=== PATIENT | male | born 1985 | race Caucasian/White ===

== ENCOUNTER → 2017-07-03 | Outpatient (CLI) | payer MEDICARE, OTHER ==
[2017-07-03 15:49] LABS: Blood Urea Nitrogen 11 mg/dL (9-20); Cholesterol 180 mg/dL (<200); Glucose 93 mg/dL (74-99); HDL Cholesterol 37 mg/dL (40-60); LDL Cholesterol,Calculated 88 mg/dL (0-99); Lithium 0.3 mmol/L; Triglycerides 273 mg/dL (<150)
[2017-07-03 16:03] LABS: T4, Free (Free Thyroxine) 0.97 ng/dL (0.78-2.19)
== END | disposition home or self-care (01) ==
LOC: LABWHC1 15:05
PROVIDERS: ATTEND Psychiatry & Neurology Psychiatry
DX: Z51.81 Encounter for therapeutic drug level monitoring (principal); Z79.899 Other long term (current) drug therapy
CPT/HCPCS: 36415; 80061; 80178; 82565; 82947; 84439; 84443; 84520

== ENCOUNTER 2017-11-25 16:12 | Inpatient (IN) | payer MEDICARE, MEDICAID ==
--- NOTE | 2017-11-25 16:48 | ED ---
Psych HPI - General Chief Complaint: Psychiatric Symptoms Stated Complaint: Mental Health Time Seen by Provider: 11/25/17 16:28 Source: patient Mode of arrival: ambulatory - History of Present Illness Initial Comments: This a 32-year-old male past medical history of major depressive disorder, multiple substance abuse and borderline personality who presents today for chief complaint of suicidal thoughts. Patient states that last week he was admitted to the ICU for overdose at [facility] in [place]. He states he did not intentionally overdose he mixed Neurontin, Suboxone, Klonopin and smoked crack. Patient denies suicidal thoughts that time. He states upon discharge medications were changed. He is currently taking lithium, Cogentin and Prolixin. Patient states that he has had increased suicidal thoughts since his discharge from [facility]. He had an appointment seem [facility] this afternoon where he admitted to suicidal thoughts with the nurse and he felt he should go to the hospital. He is accompanied by his clinician at [facility]. Patient denies any homicidal ideations, suicidal plans or methods. Patient denies any drug or alcohol use prior to arrival. Review of systems positive for depression. Patient denies any recent fever, chills, shortness of breath, chest pain, back pain, abdominal pain, nausea or vomiting, numbness or tingling, dysuria or hematuria, headaches or visual changes, or any other complaints. Upon arrival vital signs within acceptable limits, BAT .000. - Related Data Home Medications Medication Instructions Recorded Confirmed [place] Carbonate 900 mg PO QAM 08/13/13 11/25/17 Levothyroxine Sodium [Synthroid] 100 mcg PO DAILY 11/25/17 11/25/17 Minocycline HCl 100 mg PO DAILY 11/25/17 11/25/17 fluPHENAZine DECANOATE [Prolixin 50 mg IM MO 11/25/17 11/25/17 Decanoate] Allergies Allergy/AdvReac Type Severity Reaction Status Date / Time bupropion HCl Allergy Rash/Hives Verified 11/25/17 16:34 [From Wellbutrin] nitrofurantoin Allergy Unknown Verified 11/25/17 16:34 [From Macrobid] Sulfa (Sulfonamide Allergy Rash/Hives Verified 11/25/17 16:34 Antibiotics) Review of Systems ROS Statement: Those systems with pertinent positive or pertinent negative responses have been documented in the HPI. ROS Other: All systems not noted in ROS Statement are negative. Constitutional: Denies: fever, chills Eyes: Denies: vision change ENT: Denies: ear pain, throat pain Respiratory: Denies: cough, dyspnea, wheezes, hemoptysis, stridor Cardiovascular: Denies: chest pain, palpitations Gastrointestinal: Reports: diarrhea (1 episode diarrhea). Denies: abdominal pain, nausea, vomiting Genitourinary: Denies: urgency, dysuria, frequency Musculoskeletal: Denies: back pain Skin: Denies: rash, lesions Neurological: Denies: headache, weakness, numbness, paresthesias, confusion, abnormal gait Psychiatric: Reports: depression, suicidal thoughts (since dicharge from [facility] last week) Past Medical History Additional Past Medical History / Comment(s): COPD, History of Any Multi-Drug Resistant Organisms: None Reported Past Surgical History: Ear Surgery Additional Past Surgical History / Comment(s): ear tubes Past Psychological History: Anxiety, Depression Smoking Status: Current every day smoker Past Alcohol Use History: None Reported Past Drug Use History: Cocaine, Marijuana General Exam - General Exam Comments Initial Comments: General: The patient is awake and alert, in no distress, and does not appear acutely ill. Eye: +4 pupils are equal, round and reactive to light, extra-ocular movements are intact. No nystagmus. There is normal conjunctiva bilaterally. No signs of icterus. Ears, nose, mouth and throat: There are moist mucous membranes and no oral lesions. Neck: The neck is supple, there is no tenderness or JVD. Cardiovascular: There is a regular rate and rhythm. No murmur, rub or gallop is appreciated. Respiratory: Lungs are clear to auscultation, respirations are non-labored, breath sounds are equal. No wheezes, stridor, rales, or rhonchi. Gastrointestinal: Soft, non-distended, non-tender abdomen without masses or organomegaly noted. There is no rebound or guarding present. Bowel sounds are unremarkable. Musculoskeletal: Normal ROM, no tenderness. Strength 5/5. Sensation intact. Radial pulses equal bilaterally 2+. Neurological: A&O x 3. CN II-XII intact, There are no obvious motor or sensory deficits. Coordination appears grossly intact. Speech is normal. Skin: Skin is warm and dry and no rashes or lesions are noted. Psychiatric: Cooperative, appropriate mood & affect, normal judgment. Limitations: no limitations Course Vital Signs 11/25/17 16:20 Temperature 98.5 F Pulse Rate 95 Respiratory 18 Rate Blood Pressure 135/91 O2 Sat by Pulse 99 Oximetry Medical Decision Making - Medical Decision Making PE unremarkable. Labs as noted above. Urine drug screen positive for marijuana. Pt medically cleared for psychiatric evaluation. EPS contacted, [facility] clinican at bedside. Pt was admitted to inpatient psych at 19:54. Case discussed with Dr. Eng throughout patient stay in the emergency department. - Lab Data Result diagrams: 11/25/17 16:56 11/25/17 16:56 Lab Results 11/25/17 11/25/17 11/25/17 Range/Units 16:56 16:56 16:56 WBC 6.8 (3.8-10.6) k/uL RBC 5.85 (4.30-5.90) m/uL Hgb 17.5 (13.0-17.5) gm/dL Hct 50.3 (39.0-53.0) % MCV 85.9 (80.0-100.0) fL MCH 30.0 (25.0-35.0) pg MCHC 34.9 (31.0-37.0) g/dL RDW 12.7 (11.5-15.5) % Plt Count 239 (150-450) k/uL Neutrophils % 69 % Lymphocytes % 21 % Monocytes % 4 % Eosinophils % 4 % Basophils % 1 % Neutrophils # 4.7 (1.3-7.7) k/uL Lymphocytes # 1.4 (1.0-4.8) k/uL Monocytes # 0.3 (0-1.0) k/uL Eosinophils # 0.3 (0-0.7) k/uL Basophils # 0.0 (0-0.2) k/uL Sodium 139 (137-145) mmol/L Potassium 4.6 (3.5-5.1) mmol/L Chloride 102 (98-107) mmol/L Carbon Dioxide 27 (22-30) mmol/L Anion Gap 10 mmol/L BUN 14 (9-20) mg/dL Creatinine 1.03 (0.66-1.25) mg/dL Est GFR (CKD-EPI)AfAm >90 (>60 ml/min/1.73 sqM) Est GFR (CKD-EPI)NonAf >90 (>60 ml/min/1.73 sqM) Glucose 90 (74-99) mg/dL Calcium 9.8 (8.4-10.2) mg/dL Total Bilirubin 0.5 (0.2-1.3) mg/dL AST 23 (17-59) U/L ALT 24 (21-72) U/L Alkaline Phosphatase 53 (38-126) U/L Total Protein 7.3 (6.3-8.2) g/dL Albumin 4.4 (3.5-5.0) g/dL Urine Color Yellow Urine Appearance Clear (Clear) Urine pH 6.0 (5.0-8.0) Ur Specific [place] 1.020 (1.001-1.035) Urine Protein Negative (Negative) Urine Glucose (UA) Negative (Negative) Urine Ketones Negative (Negative) Urine Blood Negative (Negative) Urine Nitrite Negative (Negative) Urine Bilirubin Negative (Negative) Urine Urobilinogen <2.0 (<2.0) mg/dL Ur Leukocyte Esterase Negative (Negative) Urine Opiates Screen Not Detected (NotDetected) Ur Oxycodone Screen Not Detected (NotDetected) Urine Methadone Screen Not Detected (NotDetected) Ur Propoxyphene Screen Not Detected (NotDetected) Ur Barbiturates Screen Not Detected (NotDetected) U Tricyclic Antidepress Not Detected (NotDetected) Ur Phencyclidine Scrn Not Detected (NotDetected) Ur Amphetamines Screen Not Detected (NotDetected) U Methamphetamines Scrn Not Detected (NotDetected) U Benzodiazepines Scrn Not Detected (NotDetected) Urine Cocaine Screen Not Detected (NotDetected) U Marijuana (THC) Screen Detected H (NotDetected) Disposition Clinical Impression: Suicidal thoughts Disposition: ADMITTED IP TO THIS [facility] Condition: Stable Referrals: Trent Salgado DO [Primary Care Provider] - 1-2 days Decision to Admit Reason: Admit from EC Decision Date: 11/25/17 Decision Time: 19:55
[2017-11-25 17:03] LABS: Appearance,Urine Clear (Clear); Bilirubin,Urine Negative (Negative); Blood,Urine Negative (Negative); Color,Urine Yellow; Glucose,Urine (UA) Negative (Negative); Ketones,Urine Negative (Negative); Leukocyte Esterase,Urine Negative (Negative); Nitrite,Urine Negative (Negative); Protein,Urine Negative (Negative); Urobilinogen,Urine <2.0 mg/dL (<2.0)
[2017-11-25 17:04] LABS: Basophils % (A) 1 %; Eosinophils # (A) 0.3 k/uL (0-0.7); Eosinophils % (A) 4 %; HCT 50.3 % (39.0-53.0); HGB 17.5 gm/dL (13.0-17.5); Lymphocytes # (A) 1.4 k/uL (1.0-4.8); Lymphocytes % (A) 21 %; MCHC 34.9 g/dL (31.0-37.0); MCV 85.9 fL (80.0-100.0); Mean Platelet Volume 6.9; Monocytes # (A) 0.3 k/uL (0-1.0); Monocytes % (A) 4 %; Neutrophils # (A) 4.7 k/uL (1.3-7.7); Neutrophils % (A) 69 %; Platelet Count 239 k/uL (150-450); RBC 5.85 m/uL (4.30-5.90); RDW 12.7 % (11.5-15.5); WBC 6.8 k/uL (3.8-10.6)
[2017-11-25 17:13] LABS: ALT 24 U/L (21-72); AST 23 U/L (17-59); Albumin 4.4 g/dL (3.5-5.0); Alkaline Phosphatase 53 U/L (38-126); Amphetamine Screen,Urine Not Detected (NotDetected); Anion Gap 10 mmol/L; Barbiturate Screen,Urine Not Detected (NotDetected); Benzodiazepines Screen,Urine Not Detected (NotDetected); Blood Urea Nitrogen 14 mg/dL (9-20); Calcium 9.8 mg/dL (8.4-10.2); Carbon Dioxide 27 mmol/L (22-30); Chloride 102 mmol/L (98-107); Cocaine Screen,Urine Not Detected (NotDetected); Glucose 90 mg/dL (74-99); Methadone Screen, Urine Not Detected (NotDetected); Opiate Screen,Urine Not Detected (NotDetected); Oxycodone Screen, Urine Not Detected (NotDetected); Phencyclidine Screen,Urine Not Detected (NotDetected); Potassium 4.6 mmol/L (3.5-5.1); Sodium 139 mmol/L (137-145); Total Bilirubin 0.5 mg/dL (0.2-1.3); Total Protein 7.3 g/dL (6.3-8.2); Tricyclic Antidepressant,Urine Not Detected (NotDetected); Urn Cannabinoid Scrn Detected (NotDetected)
[2017-11-25] MEDS ORDERED: ACETAMINOPHEN TAB 325 MG TAB PO PRN (22:42)
[2017-11-25] MEDS ORDERED: MAG HYDROX/AL HYDROX/SIMETH 30 ML CUP PO PRN (22:42)
[2017-11-25] MEDS ORDERED: MAGNESIUM HYDROXIDE 2,400 MG/10 ML CUP PO PRN (22:42)
[2017-11-25] MEDS ORDERED: fluPHENAZine DECANOATE 25 MG/ML 5ML MDV IM SCH (23:00)
[2017-11-25 23:09] VITALS: BMI 28.3
--- NOTE | 2017-11-26 05:53 | CONS ---
CONSULTATION DATE OF SERVICE: 11/25/2017. REASON FOR CONSULTATION: Medical management requested by Dr. Wick. CONSULTATION: This is a pleasant 32-year-old patient of Dr. Pittman, feeling rather depressed, run down a bit, suicidal, decided to come in. Chronic stable medical conditions include acne, GERD, tremors. The patient also does have trouble sleeping. Appetite has been okay, just feeling run down. REVIEW OF SYSTEMS: CONSTITUTIONAL: Tired. HEENT acne. RESPIRATORY none. CARDIOVASCULAR: None. GASTROINTESTINAL: Heartburn. GENITOURINARY none. MUSCULOSKELETAL none. DERMATOLOGICAL, HEMATOLOGIC, LYMPHATIC: None. PSYCHIATRY: Tremors. NEUROLOGICAL: Trouble sleeping. PAST MEDICAL HISTORY: Past medical history of anxiety and depression. PAST SURGICAL HISTORY: Ear surgery, ear tubes. SOCIAL HISTORY: The patient uses between 1-2 g of marijuana daily. Drinks occasionally, but yesterday drank 6 pack of beer and also did blackout. In the past has done cocaine, marijuana. Does heroin about 4 times a month. 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 FAMILY HISTORY: Reviewed and noncontributory to presentation. HOME MEDICATIONS: 1. Prolixin 50 mg IM monthly. 2. Minocycline 100 mg p.o. daily. 3. [place] 900 mg p.o. daily. 4. Synthroid 100 mcg p.o. daily. ALLERGIES: TO WELLBUTRIN, MACROBID, SULFA. PHYSICAL EXAMINATION: VITAL SIGNS: Temperature 98.5, pulse 94, respiration 16, blood pressure 144/90, pulse ox 99 percent on room air. GENERAL APPEARANCE: Average built, sitting up anxious-appearing. EYES: Pupils equal. Conjunctivae normal. HEENT: External appearance of nose and ears normal. Oral cavity normal. NECK: JVD not raised. Mass not palpable. RESPIRATORY effort normal. LUNGS are clear. CARDIOVASCULAR: 1st and 2nd sounds normal. No edema. ABDOMEN: Soft, nontender. Liver and spleen not palpable. LYMPHATICS: No lymph nodes palpable in the neck and axilla. PSYCHIATRY: Alert and oriented times three. Mood and affect depressed-appearing. NEUROLOGICAL: Pupils equal. Cranial nerves grossly intact. Power and sensation grossly intact. Tremors are present. INVESTIGATIONS: White count 6.8, hemoglobin 17.5, potassium, BUN and creatinine normal. Potassium is normal. Urine drug screen positive for marijuana. ASSESSMENT: 1. Gastroesophageal reflux disease. 2. Chronic tremors, could be side effect of medications. 3. Chronic insomnia. 4. Recreational marijuana use. 5. Occasional heroin use. PLAN: Patient advised against use of recreational drugs including smoking. Other medications as per Dr. Wick. Patient should follow up with Dr. Salgado upon discharge. We will check patient's thyroid function in the morning. MMODL / IJN: [id number] /
[2017-11-26] MEDS: LEVOTHYROXINE 100 MCG TAB PO SCH (06:33)
[2017-11-26] MEDS: NICOTINE 21MG/24HR PATCH TRANSDERM SCH (08:21)
[2017-11-26] MEDS: MINOCYCLINE 50 MG CAP PO SCH (08:21)
[2017-11-26] MEDS ORDERED: LITHIUM CARBONATE 300 MG CAP PO SCH (09:00)
[2017-11-26 10:52] LABS: Basophils % (A) 1 %; Eosinophils # (A) 0.3 k/uL (0-0.7); Eosinophils % (A) 5 %; HCT 51.5 % (39.0-53.0); HGB 17.6 gm/dL (13.0-17.5); Lymphocytes # (A) 1.6 k/uL (1.0-4.8); Lymphocytes % (A) 23 %; MCHC 34.1 g/dL (31.0-37.0); MCV 87.9 fL (80.0-100.0); Mean Platelet Volume 7.5; Monocytes # (A) 0.3 k/uL (0-1.0); Monocytes % (A) 5 %; Neutrophils # (A) 4.6 k/uL (1.3-7.7); Neutrophils % (A) 66 %; Platelet Count 259 k/uL (150-450); RBC 5.86 m/uL (4.30-5.90); RDW 12.7 % (11.5-15.5); WBC 7.1 k/uL (3.8-10.6)
[2017-11-26 10:58] LABS: ALT 23 U/L (21-72); AST 25 U/L (17-59); Albumin 4.5 g/dL (3.5-5.0); Alkaline Phosphatase 56 U/L (38-126); Anion Gap 11 mmol/L; Blood Urea Nitrogen 16 mg/dL (9-20); Calcium 9.8 mg/dL (8.4-10.2); Carbon Dioxide 28 mmol/L (22-30); Chloride 99 mmol/L (98-107); Cholesterol 172 mg/dL (<200); Glucose 88 mg/dL (74-99); HDL Cholesterol 23 mg/dL (40-60); LDL Cholesterol,Calculated 87 mg/dL (0-99); Lithium 1.5 mmol/L; Potassium 4.1 mmol/L (3.5-5.1); Sodium 138 mmol/L (137-145); Total Bilirubin 0.6 mg/dL (0.2-1.3); Total Protein 7.4 g/dL (6.3-8.2); Triglycerides 311 mg/dL (<150)
[2017-11-26] MEDS: LORazepam 1 MG TAB PO PRN ×2 (12:00→18:45)
[2017-11-26] MEDS: ZIPRASIDONE 20 MG VIAL IM PRN (12:01)
[2017-11-26 12:03] LABS: T4, Free (Free Thyroxine) 1.35 ng/dL (0.78-2.19)
--- NOTE | 2017-11-26 14:37 | P.HP ---
Psychiatric H&P - . History & Physical: Allergies Allergy/AdvReac Type Severity Reaction Status Date / Time bupropion HCl Allergy Rash/Hives Verified 11/25/17 20:37 [From Wellbutrin] nitrofurantoin Allergy Unknown Verified 11/25/17 20:37 [From Macrobid] Sulfa (Sulfonamide Allergy Rash/Hives Verified 11/25/17 20:37 Antibiotics) Vital Signs Temp 98.2 F 11/26/17 06:30 Pulse 70 11/26/17 06:30 Resp 20 11/26/17 06:30 BP 118/71 11/26/17 06:30 Pulse Ox 99 11/25/17 20:31 Intake & Output 11/25/17 11/26/17 11/26/17 18:59 06:59 18:59 Weight 95.254 kg 92.1 kg Laboratory Last Values WBC 7.1 k/uL (3.8-10.6) 11/26/17 10:19 RBC 5.86 m/uL (4.30-5.90) 11/26/17 10:19 Hgb 17.6 gm/dL (13.0-17.5) H 11/26/17 10:19 Hct 51.5 % (39.0-53.0) 11/26/17 10:19 MCV 87.9 fL (80.0-100.0) 11/26/17 10:19 MCH 30.0 pg (25.0-35.0) 11/26/17 10:19 MCHC 34.1 g/dL (31.0-37.0) 11/26/17 10:19 RDW 12.7 % (11.5-15.5) 11/26/17 10:19 Plt Count 259 k/uL (150-450) 11/26/17 10:19 Neutrophils % 66 % 11/26/17 10:19 Lymphocytes % 23 % 11/26/17 10:19 Monocytes % 5 % 11/26/17 10:19 Eosinophils % 5 % 11/26/17 10:19 Basophils % 1 % 11/26/17 10:19 Neutrophils # 4.6 k/uL (1.3-7.7) 11/26/17 10:19 Lymphocytes # 1.6 k/uL (1.0-4.8) 10/09/18 10:19 Monocytes # 0.3 k/uL (0-1.0) 11/26/17 10:19 Eosinophils # 0.3 k/uL (0-0.7) 11/26/17 10:19 Basophils # 0.0 k/uL (0-0.2) 11/26/17 10:19 Sodium 138 mmol/L (137-145) 11/26/17 10:19 Potassium 4.1 mmol/L (3.5-5.1) 11/26/17 10:19 Chloride 99 mmol/L (98-107) 11/26/17 10:19 Carbon Dioxide 28 mmol/L (22-30) 11/26/17 10:19 Anion Gap 11 mmol/L 11/26/17 10:19 BUN 16 mg/dL (9-20) 11/26/17 10:19 Creatinine 0.92 mg/dL (0.66-1.25) 11/26/17 10:19 Est GFR (CKD-EPI)AfAm >90 (>60 ml/min/1.73 sqM) 11/26/17 10:19 Est GFR (CKD-EPI)NonAf >90 (>60 ml/min/1.73 sqM) 11/26/17 10:19 Glucose 88 mg/dL (74-99) 11/26/17 10:19 Calcium 9.8 mg/dL (8.4-10.2) 11/26/17 10:19 Total Bilirubin 0.6 mg/dL (0.2-1.3) 11/26/17 10:19 AST 25 U/L (17-59) 11/26/17 10:19 ALT 23 U/L (21-72) 11/26/17 10:19 Alkaline Phosphatase 56 U/L (38-126) 11/26/17 10:19 Total Protein 7.4 g/dL (6.3-8.2) 11/26/17 10:19 Albumin 4.5 g/dL (3.5-5.0) 11/26/17 10:19 Triglycerides 311 mg/dL (<150) H 11/26/17 10:19 Cholesterol 172 mg/dL (<200) 11/26/17 10:19 LDL Cholesterol, Calc 87 mg/dL (0-99) 11/26/17 10:19 HDL Cholesterol 23 mg/dL (40-60) L 11/26/17 10: TSH 0.406 mIU/L (0.465-4.680) L 11/26/17 10: Free T4 1.35 ng/dL (0.78-2.19) 11/26/17 10:19 Urine Color Yellow 11/25/17 16:56 Urine Appearance Clear (Clear) 11/25/17 16:56 Urine pH 6.0 (5.0-8.0) 11/25/17 16:56 Ur Specific [place] 1.020 (1.001-1.035) 11/25/17 16:56 Urine Protein Negative (Negative) 11/25/17 16:56 Urine Glucose (UA) Negative (Negative) 11/25/17 16:56 Urine Ketones Negative (Negative) 11/25/17 16:56 Urine Blood Negative (Negative) 11/25/17 16:56 Urine Nitrite Negative (Negative) 11/25/17 16:56 Urine Bilirubin Negative (Negative) 11/25/17 16:56 Urine Urobilinogen <2.0 mg/dL (<2.0) 11/25/17 16:56 Ur Leukocyte Esterase Negative (Negative) 11/25/17 16:56 Urine Opiates Screen Not Detected (NotDetected) 11/25/17 16:56 Ur Oxycodone Screen Not Detected (NotDetected) 11/25/17 16:56 Urine Methadone Screen Not Detected (NotDetected) 11/25/17 16:56 Ur Propoxyphene Screen Not Detected (NotDetected) 11/25/17 16:56 Ur Barbiturates Screen Not Detected (NotDetected) 11/25/17 16:56 U Tricyclic Antidepress Not Detected (NotDetected) 11/25/17 16:56 Ur Phencyclidine Scrn Not Detected (NotDetected) 11/25/17 16:56 Ur Amphetamines Screen Not Detected (NotDetected) 11/25/17 16:56 U Methamphetamines Scrn Not Detected (NotDetected) 11/25/17 16:56 U Benzodiazepines Scrn Not Detected (NotDetected) 11/25/17 16:56 [place] 1.5 mmol/L 11/26/17 10:19 Urine Cocaine Screen Not Detected (NotDetected) 11/25/17 16:56 U Marijuana (THC) Screen Detected (NotDetected) H 11/25/17 16:56 11/26/17 14:29 IDENTIFYING DATA: This patient is a 32-year-old single male who was admitted to the mental health unit through the emergency room for acute suicidal ideation. HPI: The patient presented with [facility] health staff to the emergency room with a report the patient was suicidal. The patient was feeling hopeless and overwhelmed. He reports that he had overdosed last week on Suboxone Klonopin and Neurontin and required acute hospital care as a result. He states that he was taken off of his Cymbalta a few weeks ago and his symptoms of depression worsened. He is not able to describe why the Cymbalta was discontinued. He reports that he is been compliant with the Prolixin Decanoate lithium and Synthroid. He describes having adequate sleep or appetite with weight loss low energy no interest in activities. He is endorsing no tearfulness or crying spells. He has ongoing suicidal thoughts and describes his mood as being "down". He is endorsing no homicidal ideation intent or plan he is endorsing no hypomanic or manic symptoms. He describes no symptoms of psychosis at this time. The patient states that he has not demonstrated any violent behavior for any extended period of time. PAST PSYCHIATRIC HISTORY: He patient has had at least 12 admissions to this mental health unit over several years. He does have a history of suicide attempts. He is currently on Prolixin Decanoate 50 mg weekly lithium 900 mg in the morning Synthroid. He has been on numerous psychotropics in the past. He is followed by [facility] as an outpatient and has ACT services. 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 He has a high school education no history of service. He receives a disability income. 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 He has 1 brother 1 sister. Legal history none reported abuse history none reported. MENTAL STATUS EXAM: The patient is a male appearing his stated age. He is dressed in his own clothing which appears mildly oversized. Eye contact is staring in nature. He has no change in facial expression and affect appears flat. He reports ongoing suicidal ideation with consideration of plan. He reports no homicidal ideation. He is reporting no auditory or visual hallucinations or any specific delusions. He demonstrates no overt evidence of psychosis hypomania or andra. Insight and judgment limited. He is oriented to person place and date he is able to name the days of the week backwards. He demonstrates tremor of his upper extremities. STRENGTHS/WEAKNESSES: Strengths: Housing, income willingness to receive voluntary treatment weaknesses: Ongoing substance use INTELLECTUAL FUNCTIONING: Average IMPRESSIONS: [] 1. Major depressive disorder recurrent severe without psychosis, cannabis use disorder, opioid use disorder, alcohol use disorder, cocaine use disorder, history of inhalant use disorder 2. Borderline personality disorder traits PLAN: The patient has been admitted to the mental health unit voluntarily. We reviewed his presenting symptoms. He will be continued on the Synthroid. His lithium level was 1.5 which is higher than we would like. We will hold the lithium for now and restart at a lower dose. I have placed a call with his outpatient psychiatrist to discuss his care further. We will consider restarting the Cymbalta or another antidepressant if appropriate. He will be seen by internal medicine for routine history and physical exam. Social work will meet with the patient complete a psychosocial assessment. We will monitor him for safety and encourage appropriate participation in the milieu.
[2017-11-26 19:26] LABS: Hemoglobin A1C 4.2 % (4.0-6.0)
[2017-11-27] MEDS: LEVOTHYROXINE 100 MCG TAB PO SCH (06:42)
[2017-11-27] MEDS: NICOTINE 21MG/24HR PATCH TRANSDERM SCH (07:43)
[2017-11-27] MEDS: MINOCYCLINE 50 MG CAP PO SCH (07:44)
[2017-11-27] MEDS: LORazepam 1 MG TAB PO PRN ×2 (08:22→16:40)
--- NOTE | 2017-11-27 10:28 | P.PN ---
Progress Note - Text Interval history: The patient is found in his room. Initially he did not wish to follow me to an interview room. He indicates his mood is okay. He reports feeling anxious yesterday afternoon and requested an injection of Geodon and Ativan. He reports that he did sleep last night he is going down for meals but has not been participating in groups. We reviewed his psychotropic medications. Again he feels the Cymbalta is helpful. I will discuss this further with Dr. Suazo. We will consider restarting the Cymbalta. The patient states there is concern that he has access to his medications in terms of overdose risk. The patient reports he feels safe in the hospital today and asks when he can be discharged. Mental status exam: The patient is a male appearing his stated age he is dressed in his own attire. He has a flat affect and stares in terms of eye contact. Speech is fluent slow and limited. He provides brief answers to questions asked. He initiates conversation infrequently. He has ongoing tremor of his upper extremities. He reports no acute suicidal or homicidal ideation today. He is endorsing no auditory or visual hallucinations or any specific delusions. He demonstrates some psychomotor slowing. He is oriented to person place month and year. He demonstrates no tangential thinking loose associations or flight of ideas. He did approach my office later in the morning and asks some of the same questions he asked earlier. He states he does not recall the answers I provided earlier. Plan: The patient will continue his current psychotropic medications we will restart the lithium 3 her milligrams twice daily initially. We may consider restarting the Cymbalta. We will look for further input from [facility]. Vital signs reviewed. We will continue to monitor him for safety.
[2017-11-27] MEDS: LITHIUM CARBONATE 300 MG CAP PO SCH (21:01)
[2017-11-28] MEDS: LEVOTHYROXINE 100 MCG TAB PO SCH (06:26)
[2017-11-28] MEDS: MINOCYCLINE 50 MG CAP PO SCH (08:29)
[2017-11-28] MEDS: LORazepam 1 MG TAB PO PRN ×2 (08:29→16:04)
[2017-11-28] MEDS: NICOTINE 21MG/24HR PATCH TRANSDERM SCH (08:29)
[2017-11-28] MEDS: LITHIUM CARBONATE 300 MG CAP PO SCH ×2 (08:29→20:08)
--- NOTE | 2017-11-28 16:26 | P.PN ---
Progress Note - Text Interval history: The patient is found in his room he follows me to an interview room. He indicates his mood is okay. He continues to isolate in his room and not attending any groups. He does go down for meals. He has no questions or concerns regarding his medication. I am still making an effort to contact his outpatient psychiatrist. Mental status exam: The patient is seated at the table. He stressors unclothing hygiene is adequate grooming is fair. He initiates no conversation and has a staring eye contact. His affect is flat. He is noted to have tremor of his upper extremities. He is reporting no current suicidal ideation intent or plan however he may be underreporting symptoms. He is reporting no auditory or visual hallucinations. He demonstrates a poverty of thought and may have some difficulties retaining short-term information based on our conversations. Insight and judgment are impaired. Plan: The patient will continue his current medications I will confer with his outpatient psychiatrist to discuss the psychotropic medication management. We will continue to monitor him for safety and he is encouraged to participate in the milieu. Vital signs reviewed.
[2017-11-28] MEDS: ZIPRASIDONE 20 MG VIAL IM PRN (22:05)
[2017-11-29] MEDS: LEVOTHYROXINE 100 MCG TAB PO SCH (06:09)
[2017-11-29] MEDS: MINOCYCLINE 50 MG CAP PO SCH (08:16)
[2017-11-29] MEDS: LITHIUM CARBONATE 300 MG CAP PO SCH ×2 (08:16→20:33)
[2017-11-29] MEDS: NICOTINE 21MG/24HR PATCH TRANSDERM SCH (08:17)
--- NOTE | 2017-11-29 10:23 | P.PN ---
Progress Note - Text Interval history: The patient is found in his room he prefers not to follow me to an interview room. He states that his mood is down. I was able to communicate with his outpatient psychiatrist's and Dr. Suazo expressed a desire for the patient to be started on clozapine. This seems to be a reasonable medication change as it's likely to reduce aggressiveness possibly reduce suicidal ideation and will not worsen his extraparametal side effects. I discussed this medication option with the patient and he is agreeable. He understands there are requisite blood draws that we'll need to be done. He is asking when he can be discharged and we discussed the potential timeline. Staff report no behavioral disturbances he continues to isolate in his room. Mental status exam: The patient is an overweight male appearing his stated age. He is seated upright in bed. He has almost no spontaneous speech he provides brief responses to questions asked. He is noted to have a tremor of his upper extremities this also involves the upper musculature of his chest. He does indicate that he feels cold. He is reporting ongoing hopeless thoughts but feels safe in the hospital. He indicates he does not wish to participate in groups and be around others. He demonstrated no verbal or physical aggressiveness. His affect is flat his eye contact is staring in nature. Insight and judgment limited. He is reporting no auditory or visual hallucinations. Plan: We will initiate Clozaril 25 mg twice daily. We will titrate this as quickly as we can to a therapeutic level. Baseline CBC with differential is appropriate for initiation of Clozaril. We will continue to monitor him for safety. He is encouraged to participate in the milieu. Vital signs reviewed. He will continue on his other psychotropic medications as written.
[2017-11-29] MEDS: cloZAPine 25 MG TAB PO SCH ×2 (10:56→20:33)
[2017-11-29] MEDS: LORazepam 1 MG TAB PO PRN (19:00)
[2017-11-30] MEDS: LEVOTHYROXINE 100 MCG TAB PO SCH (05:56)
[2017-11-30] MEDS: NICOTINE 21MG/24HR PATCH TRANSDERM SCH (08:17)
[2017-11-30] MEDS: LITHIUM CARBONATE 300 MG CAP PO SCH ×2 (08:17→20:13)
[2017-11-30] MEDS: cloZAPine 25 MG TAB PO SCH ×2 (08:17→20:13)
[2017-11-30] MEDS: MINOCYCLINE 50 MG CAP PO SCH (08:28)
[2017-11-30] MEDS: LORazepam 1 MG TAB PO PRN (14:51)
--- NOTE | 2017-11-30 16:59 | P.PN ---
Progress Note - Text Progress Note Date: 11/30/17 Interval history: Patient seen in [facility] today. He does not seem to voice any adverse psychotropic medication side effects. He seems to be eating well. He reports that he is not attending groups. He is encouraged to initiate some groups. Mental status exam: He is alert and cooperative with the interview. His speech is fluent, answers are brief. He does not verbalize any thoughts of harm to self or others. He does not verbalize any hallucinations or alexandre delusions. He does not show any agitation. His affect is restricted. Plan: Patient will be maintained on current psychotropic medication regimen. Monitor for any medication side effects and monitor his ongoing response to treatment. He is encouraged to initiate some groups.
--- NOTE | 2017-11-30 17:04 | P.PN ---
Progress Note - Text Progress Note Date: 11/30/17 Addendum to progress note 11/30/2017. Patient relays that he was admitted for depression. He does relate that overall his mood is doing better. Continue to monitor his ongoing response to treatment, we'll continue to cover this patient through the weekend.
[2017-12-01] MEDS: LEVOTHYROXINE 100 MCG TAB PO SCH (06:00)
[2017-12-01] MEDS: MINOCYCLINE 50 MG CAP PO SCH (08:22)
[2017-12-01] MEDS: cloZAPine 25 MG TAB PO SCH ×2 (08:23→20:52)
[2017-12-01] MEDS: NICOTINE 21MG/24HR PATCH TRANSDERM SCH (08:23)
[2017-12-01] MEDS: LITHIUM CARBONATE 300 MG CAP PO SCH ×2 (08:23→20:52)
--- NOTE | 2017-12-01 14:28 | P.PN ---
Progress Note - Text Progress Note Date: 12/01/17 Interval history: Patient seen in [facility] today again. He reports he slept at least 6 hours last night. He seems to be eating his meals well. He does describe overall mood improvement. He does not voice any adverse psychotropic medication side effects. Mental status exam: He is alert and cooperative with the interview. His speech is fluent, not rapid or pressured. Thought processes are organized. He denies any thoughts of harm to self or others. He does not verbalize any auditory or visual hallucinations. He does not show any agitation. His affect is restricted. Plan: Patient will be maintained on current psychotropic medication regimen. We 'll continue to monitor for any medication side effects monitor his ongoing response to treatment.
[2017-12-02] MEDS: LEVOTHYROXINE 100 MCG TAB PO SCH (05:40)
[2017-12-02] MEDS: NICOTINE 21MG/24HR PATCH TRANSDERM SCH (08:02)
[2017-12-02] MEDS: cloZAPine 25 MG TAB PO SCH ×2 (08:02→20:33)
[2017-12-02] MEDS: LITHIUM CARBONATE 300 MG CAP PO SCH ×2 (08:02→20:33)
[2017-12-02] MEDS: MINOCYCLINE 50 MG CAP PO SCH (08:02)
[2017-12-02] MEDS ORDERED: fluPHENAZine DECANOATE 25 MG/ML 5ML MDV IM SCH (09:00)
--- NOTE | 2017-12-02 11:10 | P.PN ---
Progress Note - Text Interval history: The patient is found in his room. The patient states that her mood is okay. He indicates his parents visited over the weekend and that was supportive. He has compliant with the Clozaril and has no questions regarding the medication at this time. Staff report that the patient continues to isolate in his room primarily except for meals. Mental status exam: The patient is an overweight male appearing his stated age. He is seated upright in bed eye contact is appropriate speech is responsive to questions asked but not spontaneous today. He reports feeling safe in the hospital he is endorsing no acute suicidal ideation intent or plan. He is reporting no homicidal ideation intent or plan. He is reporting no auditory or visual hallucinations or any specific delusions. He has a blunted affect although during one occasion during our interaction he smiled. He demonstrates no verbal or physical aggressiveness. He continues to demonstrate ongoing tremor involving his upper extremities. Insight and judgment limited. He is demonstrating no hypomanic or manic behavior at this time. Plan: The patient will continue on his current medication I will titrate the Clozaril to 75 mg total and we will continue to titrate further. We will monitor him for safety and monitor vital signs. He is encouraged to participate in the milieu although he has been resistant. We will forego the Prolixin Decanoate injection at this time. We will continue lithium at its current dose and we'll draw a level tomorrow morning.
[2017-12-02] MEDS: LORazepam 1 MG TAB PO PRN ×2 (15:22→23:46)
[2017-12-03] MEDS: LEVOTHYROXINE 100 MCG TAB PO SCH (06:37)
[2017-12-03] MEDS: MINOCYCLINE 50 MG CAP PO SCH (08:28)
[2017-12-03] MEDS: LITHIUM CARBONATE 300 MG CAP PO SCH ×2 (08:28→20:11)
[2017-12-03] MEDS: NICOTINE 21MG/24HR PATCH TRANSDERM SCH (08:29)
[2017-12-03] MEDS ORDERED: cloZAPine 25 MG TAB PO SCH (09:00)
--- NOTE | 2017-12-03 11:24 | P.PN ---
Progress Note - Text Interval history: The patient's found in his room he reports his mood is stable. He continues to isolate in his room. Staff report that he has had more reactivity in terms of affect during brief conversations. The patient indicates he is no longer having any suicidal ideation. We discussed that we would need to titrate the claws role further and he is agreeable. He has signed a notice withdrawing his voluntary status that will towards the end of this week. Mental status exam: The patient is seated upright for our interview. He does not wish to go to an interview room to speak. Eye contact is appropriate speech is fluent nonpressured. He has no spontaneous speech but does provide brief answers to questions asked. He demonstrates brief smiling in an appropriate context. He is reporting no suicidal or homicidal ideation intent or plan. He is reporting no auditory or visual hallucinations or any specific delusions. He does not appear to be hypomanic or manic. Insight and judgment limited. He is oriented to person place day of the week. Plan: The patient will continue on the Clozaril or plan is to titrate it further during the course of this week. He will likely be appropriate for discharge towards the end of the week. Vital signs reviewed. We are awaiting the lithium level result.
[2017-12-03 11:35] LABS: Basophils # (A) 0.1 k/uL (0-0.2); Basophils % (A) 1 %; Eosinophils # (A) 0.3 k/uL (0-0.7); Eosinophils % (A) 5 %; HCT 45.8 % (39.0-53.0); HGB 15.7 gm/dL (13.0-17.5); Lymphocytes # (A) 1.6 k/uL (1.0-4.8); Lymphocytes % (A) 30 %; MCH 30.1 pg (25.0-35.0); MCHC 34.4 g/dL (31.0-37.0); MCV 87.7 fL (80.0-100.0); Mean Platelet Volume 7.7; Monocytes # (A) 0.3 k/uL (0-1.0); Monocytes % (A) 5 %; Neutrophils # (A) 2.9 k/uL (1.3-7.7); Neutrophils % (A) 57 %; Platelet Count 204 k/uL (150-450); RBC 5.22 m/uL (4.30-5.90); RDW 12.7 % (11.5-15.5); WBC 5.2 k/uL (3.8-10.6)
[2017-12-03] MEDS: LORazepam 1 MG TAB PO PRN ×2 (14:26→22:10)
[2017-12-03] MEDS: cloZAPine 25 MG TAB PO SCH (20:11)
[2017-12-04] MEDS: LEVOTHYROXINE 100 MCG TAB PO SCH (07:14)
[2017-12-04 07:25] VITALS: BP 121/83; PULSE 81; RESP 16; TEMP 97.6
[2017-12-04] MEDS: LITHIUM CARBONATE 300 MG CAP PO SCH (08:32)
[2017-12-04] MEDS: MINOCYCLINE 50 MG CAP PO SCH (08:32)
[2017-12-04] MEDS ORDERED: cloZAPine 25 MG TAB PO SCH ×3 (09:00→21:00)
[2017-12-04] MEDS: LORazepam 1 MG TAB PO PRN (10:46)
--- NOTE | 2017-12-04 10:58 | P.DS ---
Providers Date of admission: 11/25/17 20:22 Expected date of discharge: 12/04/17 Attending physician: Vinny Wick Consults: 11/25/17 21:52 Consult Physician Routine Consulting Provider: Jeremiah Martinez Consult Reason/Comments: h&p Do you want consulting provider notified?: Already Contacted Primary care physician: Trent Salgado - Discharge Diagnosis(es) (1) Major depressive disorder, recurrent severe without psychotic features Current Visit: Yes Status: Acute Priority: High (2) Cannabis use disorder, mild, abuse Current Visit: Yes Status: Acute Priority: Medium (3) Opioid use disorder Current Visit: Yes Status: Acute Priority: High (4) Cocaine use disorder Current Visit: Yes Status: Acute Priority: Medium (5) Alcohol use disorder Current Visit: Yes Status: Acute Priority: High Hospital Course: Brief summary of admission note: This patient is a 32-year-old single male who was admitted to the mental health unit through the emergency room for acute suicidal ideation. The patient's presented with community mental health staff to the emergency room with a report that the patient was suicidal. He reported feeling hopeless and overwhelmed. He described overdosing the week prior on Suboxone Klonopin and Neurontin and required acute hospital care as a result. He had been taken off his Cymbalta a few weeks prior. He stated he was compliant with Prolixin decanoate injections lithium and Synthroid. For full details please refer to my psychiatric evaluation dated 11/26/2017. Summary of hospital course: The patient was admitted to the mental health unit he signed in voluntarily. We reviewed his presenting symptoms and treatment options. I did call his outpatient psychiatrist to collaborate in terms of medication management. It was communicated that the patient's outpatient psychiatrist Dr. Suazo was hoping to initiate Clozaril for the patient's suicidal ideation mood instability and history of aggressive behavior. The patient was agreeable to initiating Clozaril. We have been able to titrate the dose to 25 mg in the morning and 75 mg in the evening. Upon presentation the patient's lithium level was 1.5. We reduced the lithium to 300 mg twice daily. The Prolixin decanoate was not continued on the mental health unit. The patient demonstrated significant tremor of his upper extremities and lower extremities which also involved his upper chest musculature. The tremor could be due to use of the Prolixin or due to the lithium. During the course of this admission the amplitude of the tremor has reduced. The patient has been speaking with his parents via phone they are going to participate in a support meeting this afternoon. The patient rarely isolated in his room other than meals and very brief interaction with group. He states that his suicidal thoughts have resolved. He does not wish to participate in inpatient chemical dependency treatment but states he is open to residing at [facility] upon discharge. The patient has had 3 CBC with differentials all within appropriate limits for continued use of Clozaril. Last white blood count on 12/03/2017 was 5.2 and absolute neutrophil count was 2.9. Mental status exam: The patient is an overweight male appearing his stated age. He is dressed in his own clothing. Hygiene is adequate. Eye contact is appropriate speech is fluent spontaneous nonpressured. The patient' s affect has brightened and is more interactive. He demonstrates appropriate smiling and laughter. He is reporting no suicidal or homicidal ideation intent or plan. He is endorsing no auditory or visual hallucinations or any specific delusions. There is no observed evidence of psychosis. He demonstrates no tangential thinking loose associations or flight of ideas. He does not appear hypomanic or manic. Insight and judgment have improved. He is oriented to person place and date. He demonstrates a significantly decreased tremor of his upper extremities. None observed in his lower extremity at this time. He demonstrates future oriented thinking. Impressions 1. Major depressive disorder recurrent severe without psychosis, cannabis use disorder, opioid use disorder, alcohol use disorder, cocaine use disorder, history of inhalant use disorder 2. Borderline personality disorder traits Plan: The patient will be discharged mental health unit today following a successful family meeting with his mother. He will return residing with his parents. He states he has a short-term goal of obtaining housing with [facility]. He will continue on Clozaril 25 mg in the morning and 75 mg in the evening lithium carbonate 300 mg twice daily. His tremors are significantly decreased. These may have been due to the lithium and/or the Prolixin and need to be followed further. He has had a recent CBC with differential yesterday with the values noted above. He is instructed to abstain from any use of alcohol marijuana or any other illicit drug as these will interfere with the efficacy of his medication and will elevate his safety risk. He does not wish to participate in inpatient chemical dependency treatment. He is agreeable to continued care as an outpatient with [facility]. He is instructed to return to the hospital with any acute safety concerns. Patient Condition at Discharge: Stable Plan - Discharge Summary Discharge Rx Participant: Yes New Discharge Prescriptions: New cloZAPine [Clozaril] 75 mg PO HS #21 tab cloZAPine [Clozaril] 25 mg PO DAILY #7 tab [place] Carbonate 300 mg PO BID #60 cap Continue Levothyroxine Sodium [Synthroid] 100 mcg PO DAILY Minocycline HCl 100 mg PO DAILY Discontinued [place] Carbonate 900 mg PO QAM fluPHENAZine DECANOATE [Prolixin Decanoate] 50 mg IM MO Discharge Medication List Levothyroxine Sodium [Synthroid] 100 mcg PO DAILY 11/25/17 [History] Minocycline HCl 100 mg PO DAILY 11/25/17 [History] [place] Carbonate 300 mg PO BID #60 cap 12/04/17 [Rx] cloZAPine [Clozaril] 25 mg PO DAILY #7 tab 12/04/17 [Rx] cloZAPine [Clozaril] 75 mg PO HS #21 tab 12/04/17 [Rx] Follow up Appointment(s)/Referral(s): Trent Salgado DO [Primary Care Provider] - 1-2 days
== END 2017-12-04 12:23 | disposition home or self-care (01) | DRG 885 ==
LOC: EC 16:12 → 3MHU 20:22
PROVIDERS: ADMIT Psychiatry & Neurology Psychiatry; ATTEND Psychiatry & Neurology Psychiatry
DX: F33.2 Major depressive disorder, recurrent severe without psychotic features (principal); F11.10 Opioid abuse, uncomplicated; F10.10 Alcohol abuse, uncomplicated; F14.10 Cocaine abuse, uncomplicated; Z79.890 Hormone replacement therapy; Z79.899 Other long term (current) drug therapy; G25.2 Other specified forms of tremor; T43.3X5A Adverse effect of phenothiazine antipsychotics and neuroleptics, initial encounter; T43.595A Adverse effect of other antipsychotics and neuroleptics, initial encounter; K21.9 Gastro-esophageal reflux disease without esophagitis; E03.2 Hypothyroidism due to medicaments and other exogenous substances; Z88.1 Allergy status to other antibiotic agents; Z88.2 Allergy status to sulfonamides; Z88.8 Allergy status to other drugs, medicaments and biological substances; Z91.5 Personal history of self-harm; G47.00 Insomnia, unspecified; Z81.1 Family history of alcohol abuse and dependence; Z81.3 Family history of other psychoactive substance abuse and dependence
CPT/HCPCS: 36415; 80053; 80061; 80178; 80306; 81003; 82075; 83036; 84439; 84443; 85025; 99285

== ENCOUNTER 2017-12-13 19:34 | Emergency (ER) | payer MEDICARE, OTHER ==
--- NOTE | 2017-12-13 23:26 | ED ---
General Adult HPI - General Chief complaint: ENT Stated complaint: High BP, Blurred Vision Time Seen by Provider: 12/13/17 21:23 Source: patient Mode of arrival: ambulatory Limitations: no limitations - History of Present Illness Initial comments: 32-year-old male patient presents to the emergency department today with complaints of blurred vision and elevated blood pressure. Patient states that he started feeling unwell around 5:00 this afternoon while at work. Patient states he was feeling slightly lightheaded. States that he did come home from work early and continue to have symptoms. States that he checked his blood pressure was in the 150s systolic over 90s diastolic. States that he became concerned today presented here for further evaluation. Patient states that this time he is feeling improved. States he does still have blurred vision at this time. He denies any double vision. Denies any headache, weakness, numbness, or tingling to the extremities. Patient did start a new medication clozapine, 2 weeks ago, states that he has been having increased blurred vision since starting this medication. Patient states that he also is supposed to wear glasses, but he does not. His last optometry evaluation was two years ago. Patient denies any recent rash, fever, chills, shortness breath, chest pain, abdominal pain, nausea, vomiting, diarrhea, constipation, back pain, hematuria, dysuria, urinary urgency, urinary frequency, or any other complaints. - Related Data Home Medications Medication Instructions Recorded Confirmed Levothyroxine Sodium [Synthroid] 100 mcg PO DAILY 11/25/17 12/13/17 DULoxetine HCL [Cymbalta] 60 mg PO DAILY 12/13/17 12/13/17 [place] Carbonate 600 mg PO HS 12/13/17 12/13/17 cloZAPine [Clozaril] 50 mg PO HS 12/13/17 12/13/17 lamoTRIgine [LaMICtal] See Taper PO DAILY 12/13/17 12/13/17 Allergies Allergy/AdvReac Type Severity Reaction Status Date / Time bupropion HCl Allergy Rash/Hives Verified 12/13/17 21:19 [From Wellbutrin] nitrofurantoin Allergy Unknown Verified 12/13/17 21:19 [From Macrobid] Sulfa (Sulfonamide Allergy Rash/Hives Verified 12/13/17 21:19 Antibiotics) Review of Systems ROS Statement: Those systems with pertinent positive or pertinent negative responses have been documented in the HPI. ROS Other: All systems not noted in ROS Statement are negative. Past Medical History Additional Past Medical History / Comment(s): COPD, History of Any Multi-Drug Resistant Organisms: None Reported Past Surgical History: Ear Surgery Additional Past Surgical History / Comment(s): ear tubes Past Psychological History: Anxiety, Bipolar, Depression Smoking Status: Current every day smoker Past Alcohol Use History: Occasional Past Drug Use History: Marijuana General Exam Limitations: no limitations General appearance: alert, in no apparent distress, other (This is a well- developed, well-nourished adult male patient in no acute distress. Vital signs upon presentation are temperature 98.0F, pulse 117, respirations 18, blood pressure 138/86, pulse ox 98% on room air.) Eye exam: Present: normal appearance, PERRL, EOMI. Absent: scleral icterus, conjunctival injection, nystagmus, periorbital swelling ENT exam: Present: normal exam, normal oropharynx, mucous membranes moist, TM's normal bilaterally Neck exam: Present: normal inspection. Absent: tenderness, meningismus, lymphadenopathy Respiratory exam: Present: normal lung sounds bilaterally. Absent: respiratory distress, wheezes, rales, rhonchi, stridor Cardiovascular Exam: Present: regular rate, normal rhythm, normal heart sounds. Absent: systolic murmur, diastolic murmur, rubs, gallop, clicks GI/Abdominal exam: Present: soft, normal bowel sounds. Absent: distended, tenderness, guarding, rebound, rigid Neurological exam: Present: alert, oriented X3, CN II-XII intact, other ( Strength in all 4 extremities is 5/5.) Psychiatric exam: Present: normal affect Skin exam: Present: warm, dry, intact, normal color. Absent: rash Course Vital Signs 12/13/17 12/13/17 12/13/17 19:52 21:30 22:00 Temperature 98 F Pulse Rate 117 H Respiratory 18 18 Rate Blood Pressure 138/86 127/89 119/81 O2 Sat by Pulse 98 97 97 Oximetry 12/13/17 23:28 Temperature 98.3 F Pulse Rate 94 Respiratory 19 Rate Blood Pressure 122/79 O2 Sat by Pulse 98 Oximetry EKG Findings - EKG Comments: EKG Findings:: EKG obtained at 2308 shows normal sinus rhythm with an incomplete right bundle branch block. Ventricular rate is 98, AK interval 166, QRS duration 94, QT 368, QTC 469. No evidence of ST elevation or depression. Medical Decision Making - Medical Decision Making 32-year-old male patient presented to the emergency department today for complaints of blurred vision and high blood pressure. Physical examination is unremarkable. Patient was neurologically intact with no focal deficits. Visual acuity did reveal 20/100 bilaterally. Patient is supposed to wear glasses but has not wearing them. Patient also started a new medication clozapine 2 weeks ago, and a common side effect is blurred vision. EKG showed normal sinus rhythm there was evidence of incomplete right bundle bundle branch block however patient is not having any chest pain or shortness of breath at this time. I did discuss findings and results with patient and his mother. Did discuss that his blurred vision is most likely related to the medication however he is instructed to follow up with coremaker apprentice for eye exam. Blood pressures in the department were within normal limits. He is instructed to keep a log of his blood pressures and follow up with his primary care physician for further evaluation. Return parameters discussed in detail. He verbalizes understanding and agrees with this plan. Disposition Clinical Impression: Blurred vision, Medication side effect Disposition: HOME SELF-CARE Condition: Good Instructions: Blurred Vision (ED) Additional Instructions: Monitor blood pressure readings several times daily. Keep a log for your primary care physician. Have eye exam performed by optometry. Follow-up with psychiatrist to discuss side effects from medication. Return immediately for any new, worsening, or concerning symptoms. Is patient prescribed a controlled substance at d/c from ED?: No Referrals: Trent Salgado DO [Primary Care Provider] - 1-2 days Time of Disposition: 23:25
[2017-12-13 23:43] VITALS: BP 122/79; PULSE 94; RESP 19; TEMP 98.3
--- NOTE | 2017-12-14 03:12 | CDI ---
Documentation Clarification OP Dear Trixie ROMERO, [facility] Please do addendum to ED report for HPI , Physical exam and MDM. Thank you, Kimi Lyn Fur Trimming Machine Operator If you have any question, Please contact manager beauty at [phone] [facility]
== END 2017-12-13 23:28 | disposition home or self-care (01) ==
LOC: EC 19:34
DX: H53.8 Other visual disturbances (principal); T42.4X5A Adverse effect of benzodiazepines, initial encounter; R42 Dizziness and giddiness; R03.0 Elevated blood-pressure reading, without diagnosis of hypertension; I45.10 Unspecified right bundle-branch block; F31.9 Bipolar disorder, unspecified; F41.9 Anxiety disorder, unspecified; F17.200 Nicotine dependence, unspecified, uncomplicated; Z79.899 Other long term (current) drug therapy; Z88.1 Allergy status to other antibiotic agents; Z88.2 Allergy status to sulfonamides; Z88.8 Allergy status to other drugs, medicaments and biological substances
CPT/HCPCS: 93005; 99284

== ENCOUNTER 2017-12-23 21:45 | Emergency (ER) | payer MEDICARE, OTHER ==
--- NOTE | 2017-12-23 22:34 | ED ---
General Adult HPI - General Chief complaint: Recheck/Abnormal Lab/Rx Stated complaint: tremors Time Seen by Provider: 12/23/17 21:57 Source: family Mode of arrival: ambulatory Limitations: no limitations - History of Present Illness Initial comments: This patient is a 32-year-old man who presents today to be evaluated for tremor. The nurse's note state that the symptoms started when he stopped taking the clozapine that he had started on recently however he only stopped that because the tremor was coming on. He states his symptoms have been going on for 5-6 days. They seem to be getting worse. Onset/Timin -: days(s) Location: upper extremity, lower extremity Consistency: constant Improves with: none Worsens with: movement Associated Symptoms: denies other symptoms - Related Data Home Medications Medication Instructions Recorded Confirmed Levothyroxine Sodium [Synthroid] 100 mcg PO DAILY 11/25/17 12/23/17 DULoxetine HCL [Cymbalta] 60 mg PO DAILY 12/13/17 12/23/17 [place] Carbonate 600 mg PO HS 12/13/17 12/23/17 cloZAPine [Clozaril] 50 mg PO HS 12/13/17 12/23/17 lamoTRIgine [LaMICtal] See Taper PO DAILY 12/13/17 12/23/17 fluPHENAZine DECANOATE [Prolixin 50 mg IM Q7D 12/23/17 12/23/17 Decanoate] Previous Rx's Medication Instructions Recorded Diazepam [Valium] 5 mg PO TID 3 Days #6 tab 12/24/17 Allergies Allergy/AdvReac Type Severity Reaction Status Date / Time bupropion HCl Allergy Rash/Hives Verified 12/23/17 22:09 [From Wellbutrin] nitrofurantoin Allergy Unknown Verified 12/23/17 22:09 [From Macrobid] Sulfa (Sulfonamide Allergy Rash/Hives Verified 12/23/17 22:09 Antibiotics) Review of Systems ROS Statement: Those systems with pertinent positive or pertinent negative responses have been documented in the HPI. ROS Other: All systems not noted in ROS Statement are negative. Constitutional: Denies: fever, chills Respiratory: Denies: cough, dyspnea Cardiovascular: Denies: chest pain, palpitations, syncope Gastrointestinal: Denies: abdominal pain, nausea, vomiting Musculoskeletal: Denies: back pain Skin: Denies: rash Neurological: Reports: other (Tremors). Denies: headache, weakness, numbness, paresthesias Psychiatric: Denies: depression, homicidal thoughts, suicidal thoughts Past Medical History Additional Past Medical History / Comment(s): COPD, History of Any Multi-Drug Resistant Organisms: None Reported Past Surgical History: Ear Surgery Additional Past Surgical History / Comment(s): ear tubes Past Psychological History: Anxiety, Bipolar, Depression Smoking Status: Current every day smoker Past Alcohol Use History: Occasional Past Drug Use History: Marijuana General Exam Limitations: no limitations General appearance: alert, in no apparent distress Head exam: Present: atraumatic, normocephalic Eye exam: Present: normal appearance. Absent: scleral icterus, conjunctival injection Neck exam: Present: normal inspection Respiratory exam: Present: normal lung sounds bilaterally. Absent: respiratory distress, wheezes, rales, rhonchi, stridor Cardiovascular Exam: Present: regular rate, normal rhythm, normal heart sounds. Absent: systolic murmur, diastolic murmur, rubs, gallop GI/Abdominal exam: Present: soft. Absent: distended, tenderness, guarding, rebound, rigid, mass Extremities exam: Present: normal inspection, normal capillary refill. Absent: pedal edema, calf tenderness Back exam: Present: normal inspection. Absent: CVA tenderness (R), CVA tenderness (L) Neurological exam: Present: alert, oriented X3, CN II-XII intact, other (The patient does have moderate tremor throughout 4 extremities) Skin exam: Present: warm, dry, intact, normal color. Absent: rash Course Vital Signs 12/23/17 12/23/17 21:47 23:52 Temperature 97.8 F 97.9 F Pulse Rate 87 78 Respiratory 18 16 Rate Blood Pressure 153/108 136/98 O2 Sat by Pulse 97 97 Oximetry Medical Decision Making - Lab Data Result diagrams: 12/23/17 22:25 12/23/17 22:25 Lab Results 12/23/17 12/23/17 Range/Units 22:25 22:25 WBC 6.4 (3.8-10.6) k/uL RBC 5.21 (4.30-5.90) m/uL Hgb 16.0 (13.0-17.5) gm/dL Hct 45.2 (39.0-53.0) % MCV 86.7 (80.0-100.0) fL MCH 30.7 (25.0-35.0) pg MCHC 35.4 (31.0-37.0) g/dL RDW 13.4 (11.5-15.5) % Plt Count 198 (150-450) k/uL Neutrophils % 58 % Lymphocytes % 29 % Monocytes % 6 % Eosinophils % 5 % Basophils % 1 % Neutrophils # 3.7 (1.3-7.7) k/uL Lymphocytes # 1.8 (1.0-4.8) k/uL Monocytes # 0.4 (0-1.0) k/uL Eosinophils # 0.3 (0-0.7) k/uL Basophils # 0.0 (0-0.2) k/uL Sodium 138 (137-145) mmol/L Potassium 3.8 (3.5-5.1) mmol/L Chloride 103 (98-107) mmol/L Carbon Dioxide 25 (22-30) mmol/L Anion Gap 10 mmol/L BUN 16 (9-20) mg/dL Creatinine 0.83 (0.66-1.25) mg/dL Est GFR (CKD-EPI)AfAm >90 (>60 ml/min/1.73 sqM) Est GFR (CKD-EPI)NonAf >90 (>60 ml/min/1.73 sqM) Glucose 95 (74-99) mg/dL Calcium 9.7 (8.4-10.2) mg/dL Total Bilirubin 1.0 (0.2-1.3) mg/dL AST 20 (17-59) U/L ALT 30 (21-72) U/L Alkaline Phosphatase 61 (38-126) U/L Total Protein 7.1 (6.3-8.2) g/dL Albumin 4.5 (3.5-5.0) g/dL [place] 0.7 mmol/L Disposition Clinical Impression: Tremor Disposition: HOME SELF-CARE Condition: Fair Instructions: Tremors (ED) Prescriptions: Diazepam [Valium] 5 mg PO TID 3 Days #6 tab Is patient prescribed a controlled substance at d/c from ED?: Yes When asked, does pt state using other controlled substances?: No If prescribed controlled substance>3 days was MAPS reviewed?: Prescribed <3 Days Referrals: Damian,Trent, DO [Primary Care Provider] - 1-2 days Sunny Suazo MD [REFERRING] - 1-2 days
[2017-12-23 22:37] LABS: Basophils % (A) 1 %; Eosinophils # (A) 0.3 k/uL (0-0.7); Eosinophils % (A) 5 %; HCT 45.2 % (39.0-53.0); Lymphocytes # (A) 1.8 k/uL (1.0-4.8); Lymphocytes % (A) 29 %; MCH 30.7 pg (25.0-35.0); MCHC 35.4 g/dL (31.0-37.0); MCV 86.7 fL (80.0-100.0); Mean Platelet Volume 7.7; Monocytes # (A) 0.4 k/uL (0-1.0); Monocytes % (A) 6 %; Neutrophils # (A) 3.7 k/uL (1.3-7.7); Neutrophils % (A) 58 %; Platelet Count 198 k/uL (150-450); RBC 5.21 m/uL (4.30-5.90); RDW 13.4 % (11.5-15.5); WBC 6.4 k/uL (3.8-10.6)
[2017-12-23 22:47] LABS: ALT 30 U/L (21-72); AST 20 U/L (17-59); Albumin 4.5 g/dL (3.5-5.0); Alkaline Phosphatase 61 U/L (38-126); Anion Gap 10 mmol/L; Blood Urea Nitrogen 16 mg/dL (9-20); Calcium 9.7 mg/dL (8.4-10.2); Carbon Dioxide 25 mmol/L (22-30); Chloride 103 mmol/L (98-107); Glucose 95 mg/dL (74-99); Lithium 0.7 mmol/L; Potassium 3.8 mmol/L (3.5-5.1); Sodium 138 mmol/L (137-145); Total Protein 7.1 g/dL (6.3-8.2)
[2017-12-23] MEDS ORDERED: DIAZEPAM 5 MG TAB PO STA (23:46)
[2017-12-23 23:53] VITALS: BP 136/98; PULSE 78; RESP 16; TEMP 97.9
== END 2017-12-24 00:18 | disposition home or self-care (01) ==
LOC: EC 21:45
DX: R25.1 Tremor, unspecified (principal); F31.9 Bipolar disorder, unspecified; F41.9 Anxiety disorder, unspecified; F17.200 Nicotine dependence, unspecified, uncomplicated; Z88.1 Allergy status to other antibiotic agents; Z88.2 Allergy status to sulfonamides; Z88.8 Allergy status to other drugs, medicaments and biological substances; Z79.899 Other long term (current) drug therapy
CPT/HCPCS: 36415; 80053; 80178; 85025; 99284

== ENCOUNTER 2018-10-13 17:08 | Emergency (ER) | payer MEDICARE, OTHER ==
[2018-10-13 20:10] LABS: Appearance,Urine Clear (Clear); Bilirubin,Urine Negative (Negative); Blood,Urine Negative (Negative); Color,Urine Yellow; Glucose,Urine (UA) Negative (Negative); Ketones,Urine Negative (Negative); Leukocyte Esterase,Urine Negative (Negative); Nitrite,Urine Negative (Negative); PH, Urine 5.5 (5.0-8.0); Protein,Urine Negative (Negative); Specific Gravity,Urine 1.017 (1.001-1.035); Urobilinogen,Urine <2.0 mg/dL (<2.0)
[2018-10-13] MEDS ORDERED: SODIUM CHLORIDE 0.9% 1,000 ML IV STA (20:43)
[2018-10-13] MEDS ORDERED: KETOROLAC 30 MG/ML 1 ML VIAL IVP STA (20:43)
--- NOTE | 2018-10-13 21:14 | ED ---
Abdominal Pain HPI - General Chief Complaint: Abdominal Pain Stated Complaint: Back pain; abdominal pain, nauseous Time Seen by Provider: 10/13/18 20:33 Source: patient Mode of arrival: ambulatory Limitations: no limitations - History of Present Illness Initial Comments: 32-year-old male patient presents to the emergency department today for evaluation of low back pain, and midepigastric abdominal pain. Patient states these symptoms started today. Patient states that he does have a history of degenerative disc disease however this pain is different for him. Patient states the pain has backed is worsened with movement. Patient states that the pain has been epigastric region has subsided however he still feels tender over the area. States he did have some nausea but no vomiting. Denies fever or chills. Denies any history of IV drug use. Patient states he was having some left testicular pain a week ago, was evaluated at his doctor's office was negative for STDs. Patient states that these symptoms have improved. Patient denies any recent rash, shortness breath, chest pain, numbness, tingling, saddle anesthesia, loss of bowel or bladder control, dizziness, weakness, hematuria, dysuria, urinary urgency, urinary frequency, headache, visual changes, or any other complaints. - Related Data Home Medications Medication Instructions Recorded Confirmed Benztropine Mesylate [Cogentin] 1 mg PO BID 10/13/18 10/13/18 Propranolol [Inderal] 10 mg PO BID 10/13/18 10/13/18 chlorproMAZINE [Thorazine] 200 mg PO HS 10/13/18 10/13/18 Previous Rx's Medication Instructions Recorded Cyclobenzaprine [Flexeril] 10 mg PO TID #15 tab 10/13/18 Ibuprofen [Motrin] 600 mg PO Q8HR PRN #30 tab 10/13/18 Allergies Allergy/AdvReac Type Severity Reaction Status Date / Time bupropion HCl Allergy Rash/Hives Verified 10/13/18 20:37 [From Wellbutrin] nitrofurantoin Allergy Unknown Verified 10/13/18 20:37 [From Macrobid] Sulfa (Sulfonamide Allergy Rash/Hives Verified 10/13/18 20:37 Antibiotics) Review of Systems ROS Statement: Those systems with pertinent positive or pertinent negative responses have been documented in the HPI. ROS Other: All systems not noted in ROS Statement are negative. Past Medical History Past Medical History: COPD, Seizure Disorder Additional Past Medical History / Comment(s): COPD, History of Any Multi-Drug Resistant Organisms: None Reported Past Surgical History: Ear Surgery Additional Past Surgical History / Comment(s): ear tubes Past Anesthesia/Blood Transfusion Reactions: No Reported Reaction Past Psychological History: Anxiety, Bipolar, Depression Smoking Status: Current every day smoker Past Alcohol Use History: Occasional Past Drug Use History: Marijuana - Past Family History Mother Family Medical History: Hypertension, Thyroid Disorder Father Family Medical History: COPD, Diabetes Mellitus, Hypertension Brother(s) Family Medical History: No Reported History Sister(s) Family Medical History: No Reported History General Exam Limitations: no limitations General appearance: alert, in no apparent distress, other (This is a well- developed, well-nourished adult male patient in no acute distress. Vital signs upon presentation are temperature 99.4F, pulse 104, respirations 18 , blood pressure 136/95, pulse ox 98% on room air.) Eye exam: Present: normal appearance, PERRL, EOMI. Absent: scleral icterus, conjunctival injection, periorbital swelling ENT exam: Present: normal exam, normal oropharynx, mucous membranes moist Respiratory exam: Present: normal lung sounds bilaterally. Absent: respiratory distress, wheezes, rales, rhonchi, stridor Cardiovascular Exam: Present: regular rate, normal rhythm, normal heart sounds. Absent: systolic murmur, diastolic murmur, rubs, gallop, clicks GI/Abdominal exam: Present: soft, tenderness (Midepigastric tenderness), normal bowel sounds. Absent: distended, guarding, rebound, rigid Back exam: Present: normal inspection, paraspinal tenderness (Lower back). Absent: vertebral tenderness Neurological exam: Present: alert, oriented X3, CN II-XII intact Psychiatric exam: Present: normal affect, normal mood Skin exam: Present: warm, dry, intact, normal color. Absent: rash Course Vital Signs 10/13/18 10/13/18 17:22 20:01 Temperature 99.4 F 98.6 F Pulse Rate 104 H 98 Respiratory 18 18 Rate Blood Pressure 136/95 137/97 O2 Sat by Pulse 98 100 Oximetry Medical Decision Making - Medical Decision Making 32-year-old male patient presents to the emergency department today for evaluation of midepigastric and low back pain. Physical examination did reveal midepigastric tenderness. There is some muscular tenderness over the low back. He is neurologically and neurovascularly intact. Labs reviewed and were unremarkable. Urinalysis was unremarkable. I did discuss findings and results with the patient. We discussed low back strain as a cause for his symptoms. He'll be discharged with anti-inflammatory and muscle relaxer. He is instructed to follow-up with his primary care physician for further evaluation of his abdom inal pain. Return parameters were discussed in detail. He verbalizes understanding and agrees with this plan. - Lab Data Result diagrams: 10/13/18 21:00 10/13/18 21:00 Lab Results 10/13/18 10/13/18 10/13/18 Range/Units 20:00 21:00 21:00 WBC 6.8 (3.8-10.6) k/uL RBC 5.78 (4.30-5.90) m/uL Hgb 17.8 H (13.0-17.5) gm/dL Hct 50.9 (39.0-53.0) % MCV 88.1 (80.0-100.0) fL MCH 30.8 (25.0-35.0) pg MCHC 35.0 (31.0-37.0) g/dL RDW 13.2 (11.5-15.5) % Plt Count 199 (150-450) k/uL Neutrophils % 59 % Lymphocytes % 29 % Monocytes % 6 % Eosinophils % 4 % Basophils % 1 % Neutrophils # 4.0 (1.3-7.7) k/uL Lymphocytes # 2.0 (1.0-4.8) k/uL Monocytes # 0.4 (0-1.0) k/uL Eosinophils # 0.3 (0-0.7) k/uL Basophils # 0.1 (0-0.2) k/uL Sodium 140 (137-145) mmol/L Potassium 4.1 (3.5-5.1) mmol/L Chloride 105 (98-107) mmol/L Carbon Dioxide 27 (22-30) mmol/L Anion Gap 8 mmol/L BUN 12 (9-20) mg/dL Creatinine 0.87 (0.66-1.25) mg/dL Est GFR (CKD-EPI)AfAm >90 (>60 ml/min/1.73 sqM) Est GFR (CKD-EPI)NonAf >90 (>60 ml/min/1.73 sqM) Glucose 92 (74-99) mg/dL Calcium 9.3 (8.4-10.2) mg/dL Total Bilirubin 0.6 (0.2-1.3) mg/dL AST 19 (17-59) U/L ALT 23 (21-72) U/L Alkaline Phosphatase 58 (38-126) U/L Total Protein 6.7 (6.3-8.2) g/dL Albumin 4.2 (3.5-5.0) g/dL Amylase 42 (30-110) U/L Lipase 48 (23-300) U/L Urine Color Yellow Urine Appearance Clear (Clear) Urine pH 5.5 (5.0-8.0) Ur Specific [place] 1.017 (1.001-1.035) Urine Protein Negative (Negative) Urine Glucose (UA) Negative (Negative) Urine Ketones Negative (Negative) Urine Blood Negative (Negative) Urine Nitrite Negative (Negative) Urine Bilirubin Negative (Negative) Urine Urobilinogen <2.0 (<2.0) mg/dL Ur Leukocyte Esterase Negative (Negative) - Radiology Data Radiology results: report reviewed, image reviewed KUB x-ray obtained, report reviewed in its entirety. Impression by Dr. Moises lepe shows nonacute abdomen. Disposition Clinical Impression: Abdominal pain, Low back pain Disposition: HOME SELF-CARE Condition: Good Instructions (If sedation given, give patient instructions): Low Back Strain (ED), Abdominal Pain (ED), Lower Back Exercises (ED) Additional Instructions: Take medication as directed. Follow-up through primary care physician for recheck in 1-2 days. Return to the emergency department immediately for any new, worsening, or concerning symptoms Prescriptions: Cyclobenzaprine [Flexeril] 10 mg PO TID #15 tab Ibuprofen [Motrin] 600 mg PO Q8HR PRN #30 tab PRN Reason: Pain Is patient prescribed a controlled substance at d/c from ED?: No Referrals: Trent Salgado DO [Primary Care Provider] - 1-2 days Time of Disposition: 22:04
[2018-10-13 21:16] LABS: Basophils # (A) 0.1 k/uL (0-0.2); Basophils % (A) 1 %; Eosinophils # (A) 0.3 k/uL (0-0.7); Eosinophils % (A) 4 %; HCT 50.9 % (39.0-53.0); HGB 17.8 gm/dL (13.0-17.5); Lymphocytes % (A) 29 %; MCH 30.8 pg (25.0-35.0); MCV 88.1 fL (80.0-100.0); Monocytes # (A) 0.4 k/uL (0-1.0); Monocytes % (A) 6 %; Neutrophils % (A) 59 %; Platelet Count 199 k/uL (150-450); RBC 5.78 m/uL (4.30-5.90); RDW 13.2 % (11.5-15.5); WBC 6.8 k/uL (3.8-10.6)
[2018-10-13 21:25] LABS: ALT 23 U/L (21-72); AST 19 U/L (17-59); African American GFR (CKD) >90 (>60 ml/min/1.73 sqM); Albumin 4.2 g/dL (3.5-5.0); Alkaline Phosphatase 58 U/L (38-126); Amylase 42 U/L (30-110); Anion Gap 8 mmol/L; Blood Urea Nitrogen 12 mg/dL (9-20); Calcium 9.3 mg/dL (8.4-10.2); Carbon Dioxide 27 mmol/L (22-30); Chloride 105 mmol/L (98-107); Glucose 92 mg/dL (74-99); Potassium 4.1 mmol/L (3.5-5.1); Sodium 140 mmol/L (137-145); Total Bilirubin 0.6 mg/dL (0.2-1.3); Total Protein 6.7 g/dL (6.3-8.2)
--- NOTE | 2018-10-13 21:27 | XR ---
EXAMINATION TYPE: XR KUB DATE OF EXAM: 10/13/2018 COMPARISON: NONE HISTORY: Back pain TECHNIQUE: 2 views upright FINDINGS: Bowel gas pattern is normal. There is no sign of intestinal obstruction or pneumoperitoneum . Fecal pattern is normal. Lung bases are clear. There are no pathologic calcifications over the kidn eys. IMPRESSION: Nonacute abdomen.
[2018-10-13 22:23] VITALS: RESP 16
[2018-10-13 22:25] VITALS: BP 116/84; PULSE 81; TEMP 98
== END 2018-10-13 22:22 | disposition home or self-care (01) ==
LOC: EC 17:08
DX: M54.5 Low back pain (principal); R10.13 Epigastric pain; R11.0 Nausea; F32.9 Major depressive disorder, single episode, unspecified; F41.9 Anxiety disorder, unspecified; F17.200 Nicotine dependence, unspecified, uncomplicated; Z88.1 Allergy status to other antibiotic agents; Z88.2 Allergy status to sulfonamides; Z88.8 Allergy status to other drugs, medicaments and biological substances; Z79.899 Other long term (current) drug therapy; Z87.39 Personal history of other diseases of the musculoskeletal system and connective tissue
CPT/HCPCS: 36415; 80053; 82150; 83690; 85025; 81003; 74018; 99284; 96374; 96361; J1885

== ENCOUNTER 2019-02-06 04:38 | Observation (INO) | payer MEDICARE, OTHER ==
[2019-02-06 05:24] LABS: Basophils # (A) 0.1 k/uL (0-0.2); Basophils % (A) 1 %; Eosinophils # (A) 0.2 k/uL (0-0.7); Eosinophils % (A) 3 %; HGB 17.6 gm/dL (13.0-17.5); Lymphocytes # (A) 2.6 k/uL (1.0-4.8); Lymphocytes % (A) 30 %; MCH 32.1 pg (25.0-35.0); MCHC 35.9 g/dL (31.0-37.0); MCV 89.4 fL (80.0-100.0); Monocytes # (A) 0.5 k/uL (0-1.0); Monocytes % (A) 5 %; Neutrophils % (A) 59 %; Platelet Count 231 k/uL (150-450); RBC 5.48 m/uL (4.30-5.90); RDW 13.7 % (11.5-15.5); WBC 8.6 k/uL (3.8-10.6)
[2019-02-06 05:31] LABS: ALT 87 U/L (4-49); AST 60 U/L (17-59); African American GFR (CKD) >90 (>60 ml/min/1.73 sqM); Albumin 4.6 g/dL (3.5-5.0); Alkaline Phosphatase 64 U/L (38-126); Anion Gap 10 mmol/L; Blood Urea Nitrogen 17 mg/dL (9-20); Calcium 9.4 mg/dL (8.4-10.2); Carbon Dioxide 27 mmol/L (22-30); Chloride 103 mmol/L (98-107); Glucose 105 mg/dL (74-99); Magnesium 1.9 mg/dL (1.6-2.3); Non-African American GFR(CKD) >90 (>60 ml/min/1.73 sqM); Potassium 3.4 mmol/L (3.5-5.1); Sodium 140 mmol/L (137-145); Total Bilirubin 0.6 mg/dL (0.2-1.3); Total Protein 7.4 g/dL (6.3-8.2)
[2019-02-06 05:34] LABS: INR 0.9 (<1.2); Partial Thromboplastin Time 23.4 sec (22.0-30.0); Prothrombin Time 9.9 sec (9.0-12.0)
--- NOTE | 2019-02-06 05:51 | XR ---
EXAM: XR Chest, 2 Views CLINICAL HISTORY: ITS.REASON XR Reason: Chest Pain TECHNIQUE: Frontal and lateral views of the chest. COMPARISON: No relevant prior studies available. FINDINGS: Lungs: No consolidation or mass. Pleural space: No effusion. Heart: No cardiomegaly. Bones/joints: No acute findings. IMPRESSION: No acute cardiopulmonary process.
[2019-02-06] MEDS ORDERED: ASPIRIN 325 MG TAB PO STA (06:03)
[2019-02-06] MEDS ORDERED: MORPHINE SULFATE 2 MG/ML SYRINGE IVP STA (06:03)
[2019-02-06] MEDS ORDERED: HEPARIN SODIUM,PORCINE 5,000 UNIT/ML 1 ML VIAL IV PRN (06:24)
[2019-02-06] MEDS ORDERED: HEPARIN SODIUM,PORCINE 5,000 UNIT/ML 1 ML VIAL IV ONE (06:24)
[2019-02-06] MEDS ORDERED: NALOXONE 0.4 MG/ML 1 ML VIAL IV PRN (06:25)
[2019-02-06] MEDS ORDERED: ONDANSETRON 4 MG/2 ML VIAL IVP PRN (06:25)
[2019-02-06] MEDS ORDERED: POTASSIUM CHLORIDE ER 20 MEQ TAB.ER PO STA (06:25)
[2019-02-06] MEDS ORDERED: MORPHINE SULFATE 4 MG/ML SYRINGE IV PRN (06:25)
[2019-02-06] MEDS ORDERED: ACETAMINOPHEN TAB 325 MG TAB PO PRN (06:25)
[2019-02-06] MEDS ORDERED: PANTOPRAZOLE 40 MG/10 ML VIAL IVP STA (06:28)
[2019-02-06] MEDS ORDERED: HEPARIN SOD,PORK IN 0.45% NACL 25,000 UNIT in 0.45% NACL 1 250ML.BAG IV SCH (06:30)
[2019-02-06] MEDS ORDERED: SODIUM CHLORIDE 0.9% 1,000 ML IV SCH (06:30)
--- NOTE | 2019-02-06 06:32 | ED ---
General Adult HPI - General Chief complaint: Chest Pain Stated complaint: chest pain Time Seen by Provider: 02/06/19 05:00 Source: patient, RN notes reviewed, old records reviewed Mode of arrival: ambulatory Limitations: no limitations - History of Present Illness Initial comments: 33 -year-old male presenting for evaluation of substernal chest pain. Pain began just prior to arrival. He had warm sensation that radiated into his neck and jaw. He does deal with gastric reflux and initially thought that his symptoms may be related to reflux. He took some heartburn medication without significant improvement. Pain was moderate to severe. Patient states he has been dealing with intermittent central chest pain for many months. He was supposed to follow with his primary care physician regarding a stress test but has not had this test completed to date. She is a current smoker, history of hypertension. - Related Data Home Medications Medication Instructions Recorded Confirmed Benztropine Mesylate [Cogentin] 1 mg PO BID 10/13/18 10/13/18 Propranolol [Inderal] 10 mg PO BID 10/13/18 10/13/18 chlorproMAZINE [Thorazine] 200 mg PO HS 10/13/18 10/13/18 Previous Rx's Medication Instructions Recorded Cyclobenzaprine [Flexeril] 10 mg PO TID #15 tab 10/13/18 Ibuprofen [Motrin] 600 mg PO Q8HR PRN #30 tab 10/13/18 Allergies Allergy/AdvReac Type Severity Reaction Status Date / Time bupropion HCl Allergy Rash/Hives Verified 02/06/19 04:47 [From Wellbutrin] nitrofurantoin Allergy Unknown Verified 02/06/19 04:47 [From Macrobid] Sulfa (Sulfonamide Allergy Rash/Hives Verified 02/06/19 04:47 Antibiotics) Review of Systems ROS Statement: Those systems with pertinent positive or pertinent negative responses have been documented in the HPI. ROS Other: All systems not noted in ROS Statement are negative. Past Medical History Past Medical History: COPD, Seizure Disorder Additional Past Medical History / Comment(s): COPD, History of Any Multi-Drug Resistant Organisms: None Reported Past Surgical History: Ear Surgery Additional Past Surgical History / Comment(s): ear tubes Past Anesthesia/Blood Transfusion Reactions: No Reported Reaction Past Psychological History: Anxiety, Bipolar, Depression Smoking Status: Current every day smoker Past Alcohol Use History: Occasional Past Drug Use History: Marijuana - Past Family History Mother Family Medical History: Hypertension, Thyroid Disorder Father Family Medical History: COPD, Diabetes Mellitus, Hypertension Brother(s) Family Medical History: No Reported History Sister(s) Family Medical History: No Reported History General Exam Limitations: no limitations General appearance: alert, in no apparent distress Head exam: Present: atraumatic, normocephalic Eye exam: Present: normal appearance, PERRL ENT exam: Present: normal exam Neck exam: Present: normal inspection. Absent: tenderness, meningismus Respiratory exam: Present: normal lung sounds bilaterally. Absent: respiratory distress, wheezes Cardiovascular Exam: Present: regular rate, normal rhythm. Absent: rubs GI/Abdominal exam: Present: soft. Absent: distended, tenderness, guarding, rebound Extremities exam: Present: normal inspection, normal capillary refill. Absent: pedal edema Neurological exam: Present: alert, oriented X3, CN II-XII intact. Absent: motor sensory deficit Psychiatric exam: Present: normal affect, normal mood Skin exam: Present: warm, dry, intact. Absent: cyanosis Course Vital Signs 02/06/19 02/06/19 04:44 05:18 Temperature 98 F Pulse Rate 97 Respiratory 20 18 Rate Blood Pressure 156/102 O2 Sat by Pulse 100 Oximetry EKG Findings - EKG Comments: EKG Findings:: EKG: Normal sinus rhythm, inferior infarct with Q waves and T- wave inversion in lead 3, no ST segment elevation rate of 84, VA interval 156, QRS duration 102, QTC 439 Medical Decision Making - Medical Decision Making 33-year-old male presenting for evaluation of central chest pain radiating to his neck. Patient's EKG shows sinus rhythm with T-wave inversion or Q waves in the inferior leads.he's had ongoing chest pain for months however this was much more severe today.patient had an EKG in 2018 that did not show T-wave inversions in the inferior leads. chest x-rays performed negative for acute cardiopulmonary disease. Patient has normal CBC, CMP showed mild transaminitis with no abdominal pain. He has a troponin 0.015 which is negative. Patient's pain began just prior to arrival given the onset of pain and EKG changes he will be For serial cardiac enzymes, cardiology consultation and telemetry. He is given an aspirin, placed on heparin. On reevaluation patient is chest pain-free. Case discussed with the admitting physician Dr. Martinez - Lab Data Result diagrams: 02/06/19 05:07 02/06/19 05:07 Lab Results 02/06/19 02/06/19 02/06/19 Range/Units 05:07 05:07 05:07 WBC 8.6 (3.8-10.6) k/uL RBC 5.48 (4.30-5.90) m/uL Hgb 17.6 H (13.0-17.5) gm/dL Hct 49.0 (39.0-53.0) % MCV 89.4 (80.0-100.0) fL MCH 32.1 (25.0-35.0) pg MCHC 35.9 (31.0-37.0) g/dL RDW 13.7 (11.5-15.5) % Plt Count 231 (150-450) k/uL Neutrophils % 59 % Lymphocytes % 30 % Monocytes % 5 % Eosinophils % 3 % Basophils % 1 % Neutrophils # 5.0 (1.3-7.7) k/uL Lymphocytes # 2.6 (1.0-4.8) k/uL Monocytes # 0.5 (0-1.0) k/uL Eosinophils # 0.2 (0-0.7) k/uL Basophils # 0.1 (0-0.2) k/uL PT (9.0-12.0) sec INR (<1.2) APTT (22.0-30.0) sec Sodium 140 (137-145) mmol/L Potassium 3.4 L (3.5-5.1) mmol/L Chloride 103 (98-107) mmol/L Carbon Dioxide 27 (22-30) mmol/L Anion Gap 10 mmol/L BUN 17 (9-20) mg/dL Creatinine 0.79 (0.66-1.25) mg/dL Est GFR (CKD-EPI)AfAm >90 (>60 ml/min/1.73 sqM) Est GFR (CKD-EPI)NonAf >90 (>60 ml/min/1.73 sqM) Glucose 105 H (74-99) mg/dL Calcium 9.4 (8.4-10.2) mg/dL Magnesium 1.9 (1.6-2.3) mg/dL Total Bilirubin 0.6 (0.2-1.3) mg/dL AST 60 H (17-59) U/L ALT 87 H (4-49) U/L Alkaline Phosphatase 64 (38-126) U/L Troponin I (0.000-0.034) ng/mL NT-Pro-B Natriuret Pep 25 pg/mL Total Protein 7.4 (6.3-8.2) g/dL Albumin 4.6 (3.5-5.0) g/dL Lipase 98 (23-300) U/L 02/06/19 02/06/19 Range/Units 05:07 05:07 WBC (3.8-10.6) k/uL RBC (4.30-5.90) m/uL Hgb (13.0-17.5) gm/dL Hct (39.0-53.0) % MCV (80.0-100.0) fL MCH (25.0-35.0) pg MCHC (31.0-37.0) g/dL RDW (11.5-15.5) % Plt Count (150-450) k/uL Neutrophils % % Lymphocytes % % Monocytes % % Eosinophils % % Basophils % % Neutrophils # (1.3-7.7) k/uL Lymphocytes # (1.0-4.8) k/uL Monocytes # (0-1.0) k/uL Eosinophils # (0-0.7) k/uL Basophils # (0-0.2) k/uL PT 9.9 (9.0-12.0) sec INR 0.9 (<1.2) APTT 23.4 (22.0-30.0) sec Sodium (137-145) mmol/L Potassium (3.5-5.1) mmol/L Chloride (98-107) mmol/L Carbon Dioxide (22-30) mmol/L Anion Gap mmol/L BUN (9-20) mg/dL Creatinine (0.66-1.25) mg/dL Est GFR (CKD-EPI)AfAm (>60 ml/min/1.73 sqM) Est GFR (CKD-EPI)NonAf (>60 ml/min/1.73 sqM) Glucose (74-99) mg/dL Calcium (8.4-10.2) mg/dL Magnesium (1.6-2.3) mg/dL Total Bilirubin (0.2-1.3) mg/dL AST (17-59) U/L ALT (4-49) U/L Alkaline Phosphatase (38-126) U/L Troponin I 0.015 (0.000-0.034) ng/mL NT-Pro-B Natriuret Pep pg/mL Total Protein (6.3-8.2) g/dL Albumin (3.5-5.0) g/dL Lipase (23-300) U/L Disposition Clinical Impression: Unstable angina pectoris Disposition: ADMITTED IP TO THIS [facility] Condition: Stable Is patient prescribed a controlled substance at d/c from ED?: No Referrals: Trent Salgado DO [Primary Care Provider] - 1-2 days Decision to Admit Reason: Admit from EC Decision Date: 02/06/19 Decision Time: 06:34
[2019-02-06 09:08] VITALS: RESP 18
--- NOTE | 2019-02-06 11:34 | P.CRDCN ---
History of Present Illness History of present illness: HISTORY OF PRESENTING ILLNESS This is a pleasant 33-year-old male past medical history significant for anxiety, bipolar, depression, chronic nicotine dependence, daily marijuana use, history of polysubstance abuse with crack cocaine, methamphetamine and heroin use in the past. He states he has not used illicit drugs for 6 months other than marijuana. He denies prior history of coronary artery disease, hypertension, dyslipidemia or diabetes mellitus. 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 We have been asked to see in consultation for chest pain. He states for the previous few months he has been experiencing a pressure sensation in the middle of his chest. At times the pain is reproducible and tender on palpation. At times it is worse with deep inspiration. Specifically approximately 2 weeks ago he had smoked a significant amount of marijuana and drank some beer and then for a walk. While walking he was again experiencing a pressure in his chest. The pain does not radiate to the arms, back, neck or jaw. It is not associated with shortness of breath, dizziness or palpitations. DIAGNOSTICS EKG reveals sinus mechanism. Chest xray negative for acute cardiopulmonary process. Laboratory reviewed, WBC 8.6, hemoglobin 17.6, platelets 231, sodium 140, potassium 3.4, creatinine 0.79, AST 60, ALT 87, cardiac enzymes negative 2, NT proBNP 25, magnesium 1.9. He takes no daily cardiac medications. REVIEW OF SYSTEMS At the time of my exam: CONSTITUTIONAL: Denies fever or chills. CARDIOVASCULAR: Denies chest pain, shortness of breath, orthopnea, PND or palpitations. RESPIRATORY: Denies cough. GASTROINTESTINAL: Denies abdominal pain, diarrhea, constipation, nausea or vomiting. MUSCULOSKELETAL: Denies myalgias. NEUROLOGIC: Denies numbness, tingling or weakness. ENDOCRINE: Denies fatigue, weight change, polydipsia or polyurina. GENITOURINARY: Denies burning, hematuria or urgency with micturation. HEMATOLOGIC: Denies history of anemia or bleeding. PHYSICAL EXAMINATION Blood pressure 133/81 heart rate 70 afebrile and maintaining oxygen saturation on room air. CONSTITUTIONAL: No apparent distress. Flat affect. HEENT: Head is normocephalic. Pupils are equal, round. Sclerae anicteric. Mucous membranes of the mouth are moist. No JVD. No carotid bruit. CHEST EXAMINATION: Lungs are clear to auscultation. No chest wall tenderness is noted on palpation or with deep breathing. HEART EXAMINATION: Regular rate and rhythm. S1, S2 heard. No murmurs, gallops or rub. ABDOMEN: Soft, nontender. Positive bowel sounds. EXTREMITIES: 2+ peripheral pulses, no lower extremity edema and no calf tenderness. NEUROLOGIC EXAMINATION: Patient is awake, alert and oriented x3. ASSESSMENT Chest pain, atypical. An acute coronary event has been ruled out. Hypokalemia, replaced History of psychiatric illness Polysubstance abuse Chronic nicotine dependence PLAN An acute coronary event has been ruled out. Discontinue heparin infusion. Perform exercise stress test to assess for stress-induced ischemia. Obtain echocardiogram to assess LV function given his polysubstance abuse. Recommend complete cessation of illicit drugs including marijuana. Smoking cessation discussed. If stress test is normal he may be discharged from a cardiac perspective. Thank you kindly for this consultation. Nurse Practitioner note has been reviewed, I agree with a documented findings and plan of care. Patient was seen and examined. Past Medical History Past Medical History: COPD, Seizure Disorder Additional Past Medical History / Comment(s): COPD, History of Any Multi-Drug Resistant Organisms: None Reported Past Surgical History: Ear Surgery Additional Past Surgical History / Comment(s): ear tubes Past Anesthesia/Blood Transfusion Reactions: No Reported Reaction Past Psychological History: Anxiety, Bipolar, Depression Smoking Status: Current every day smoker Past Alcohol Use History: Occasional Past Drug Use History: Marijuana - Past Family History Mother Family Medical History: Hypertension, Thyroid Disorder Father Family Medical History: COPD, Diabetes Mellitus, Hypertension Brother(s) Family Medical History: No Reported History Sister(s) Family Medical History: No Reported History Medications and Allergies Home Medications Medication Instructions Recorded Confirmed Type ARIPiprazole [Abilify] 10 mg PO HS 02/06/19 02/06/19 History Acetaminophen [Tylenol] 1,000 mg PO Q6H PRN 02/06/19 02/06/19 History Doxycycline [Vibramycin] 100 mg PO DAILY 02/06/19 02/06/19 History Ibuprofen [Motrin Ib] 400 mg PO Q6H PRN 02/06/19 02/06/19 History Omeprazole [PriLOSEC] 20 mg PO DAILY 02/06/19 02/06/19 History Propranolol HCl [Propranolol HCl 60 mg PO DAILY 02/06/19 02/06/19 History ER] hydrOXYzine HCL [Atarax] 100 mg PO HS 02/06/19 02/06/19 History valACYclovir HCL [Valtrex] 1,000 mg PO DAILY 02/06/19 02/06/19 History Allergies Allergy/AdvReac Type Severity Reaction Status Date / Time bupropion HCl Allergy Rash/Hives Verified 02/06/19 08:14 [From Wellbutrin] nitrofurantoin Allergy Unknown Verified 02/06/19 08:14 [From Macrobid] Sulfa (Sulfonamide Allergy Rash/Hives Verified 02/06/19 08:14 Antibiotics) Physical Exam Vitals: Vital Signs Temp Pulse Pulse Resp BP BP Pulse Ox 02/06/19 09:15 97.5 F L 70 18 133/81 98 02/06/19 09:06 86 18 140/60 98 02/06/19 08:19 98 F 83 20 129/82 98 02/06/19 06:46 92 20 131/76 98 02/06/19 05:18 18 02/06/19 04:44 98 F 97 20 156/102 100 Intake and Output 02/05/19 02/06/19 02/06/19 22:59 06:59 14:59 Other: Weight 108.862 kg Results 02/06/19 05:07 02/06/19 05:07 Cardiac Enzymes 02/06/19 02/06/19 02/06/19 Range/Units 05:07 05:07 06:42 AST 60 H (17-59) U/L Troponin I 0.015 0.014 (0.000-0.034) ng/mL Coagulation 02/06/19 Range/Units 05:07 PT 9.9 (9.0-12.0) sec APTT 23.4 (22.0-30.0) sec CBC 02/06/19 Range/Units 05:07 WBC 8.6 (3.8-10.6) k/uL RBC 5.48 (4.30-5.90) m/uL Hgb 17.6 H (13.0-17.5) gm/dL Hct 49.0 (39.0-53.0) % Plt Count 231 (150-450) k/uL Comprehensive Metabolic Panel 02/06/19 Range/Units 05:07 Sodium 140 (137-145) mmol/L Potassium 3.4 L (3.5-5.1) mmol/L Chloride 103 (98-107) mmol/L Carbon Dioxide 27 (22-30) mmol/L BUN 17 (9-20) mg/dL Creatinine 0.79 (0.66-1.25) mg/dL Glucose 105 H (74-99) mg/dL Calcium 9.4 (8.4-10.2) mg/dL AST 60 H (17-59) U/L ALT 87 H (4-49) U/L Alkaline Phosphatase 64 (38-126) U/L Total Protein 7.4 (6.3-8.2) g/dL Albumin 4.6 (3.5-5.0) g/dL Current Medications Generic Name Dose Route Start Last Admin Trade Name Freq PRN Reason Stop Dose Admin Acetaminophen 650 mg 02/06/19 06:25 Tylenol Tab PO Q6HR PRN Mild Pain or Fever > 100.5 Heparin Sodium (Porcine) 0 unit 02/06/19 06:24 Heparin IV PER PROTOCOL PRN Low PTT Protocol Sodium Chloride 1,000 mls @ 20 mls/hr 02/06/19 06:30 02/06/19 06:44 Saline 0.9% IV 20 mls/hr .Q24H RUSSELL Administration Morphine Sulfate 4 mg 02/06/19 06:25 Morphine Sulfate (Inj) IV Q4HR PRN Severe Pain Naloxone HCl 0.2 mg 02/06/19 06:25 Narcan IV Q2M PRN Opioid Reversal Ondansetron HCl 4 mg 02/06/19 06:25 Zofran IVP Q8HR PRN Nausea And Vomiting Intake and Output 02/05/19 02/06/19 02/06/19 22:59 06:59 14:59 Other: Weight 108.862 kg 02/06/19 05:07 02/06/19 05:07
--- NOTE | 2019-02-06 13:36 | EST ---
EXERCISE STRESS DATE OF SERVICE: 02/06/2019 AGE: 33 SEX: Male HT: 71 WT: 240 PROTOCOL: Garry STAGE: IV DURATION OF EXERCISE: 10 minutes HEART RATE REST: 92 BLOOD PRESSURE REST: 127/76 MAXIMUM HEART RATE ACHIEVED: 162 MAXIMUM BLOOD PRESSURE: 178/77 85% MPHR: 160 100% MPHR: 188 METS: 11.3 INDICATIONS: Chest discomfort. CLINICAL INFORMATION: STRESS DATA: Heart rate 92, pressure is 127/76 mmHg. Baseline EKG showed sinus rhythm. The patient exercised on the treadmill according to Garry protocol for a total of 10 minutes and achieved 11.3 METs. Max heart rate was 162 which is about 86% of maximum predicted heart rate. Maximum blood pressure was 178/77 mmHg. Clinically the patient did not have any symptoms of chest pain or chest discomfort and the EKG did not show any significant ST or T-wave abnormalities concerning for ischemia. CONCLUSION: 1. Excellent exercise tolerance. 2. Normal EKG in response to exercise. 3. Essentially normal exercise treadmill stress test for the patient. MMODL / IJN: [id number] /
--- NOTE | 2019-02-06 13:49 | ECHOF ---
Referral Reason:cp MEASUREMENTS -------- HEIGHT: 182.9 cm WEIGHT: 108.9 kg BP: RVIDd: 2.6 cm (< 3.3) IVSd: 1.3 cm (0.6 - 1.1) LVIDd: 4.4 cm (3.9 - 5.3) LVPWd: 1.4 cm (0.6 - 1.1) IVSs: 2.1 cm LVIDs: 2.4 cm LVPWs: 1.7 cm LAESV Index (A-L): 26.42 ml/m Ao Diam: 3.7 cm (2.0 - 3.7) AV Cusp: 2.5 cm (1.5 - 2.6) LA Diam: 2.8 cm (2.7 - 3.8) MV EXCURSION: 19.436 mm (> 18.000) MV EF SLOPE: 114 mm/s (70 - 150) EPSS: 0.7 cm MV E Benny: 0.84 m/s MV DecT: 163 ms MV A Benny: 0.50 m/s MV E/A Ratio: 1.68 RAP: 5.00 mmHg RVSP: 18.11 mmHg TAPSE: 22.99 mm FINDINGS -------- Sinus rhythm. This was a technically good study. The left ventricular size is normal. There is mild concentric left ventricular hypertrophy. Overa ll left ventricular systolic function is low-normal with, an EF between 50 - 55 %. The diastolic fi lling pattern is normal for the age of the patient 7.99. The right ventricle is normal in size. The right ventricular systolic function is normal. The left atrial size is normal. Normal LA size by volume 22+/-6 ml/m2. The right atrial size is normal. Interatrial and interventricular septum intact. The aortic valve is trileaflet and appears structurally normal. The mitral valve is normal. There is trace mitral regurgitation. The tricuspid valve appears structurally normal. Trace tricuspid regurgitation present. Right minnie tricular systolic pressure is normal at < 35 mmHg. There is no pulmonic regurgitation present. The aortic root size is normal. Normal inferior vena cava with normal inspiratory collapse consistent with estimated right atrial pre ssure of 5 mmHg. There is no pericardial effusion. CONCLUSIONS -------- 1. Sinus rhythm. 2. This was a technically good study. 3. The left ventricular size is normal. 4. There is mild concentric left ventricular hypertrophy. 5. Overall left ventricular systolic function is low-normal with, an EF between 50 - 55 %. 6. The diastolic filling pattern is normal for the age of the patient 7.99 7. The right ventricle is normal in size. 8. The right ventricular systolic function is normal. 9. The left atrial size is normal. 10. Normal LA size by volume 22+/-6 ml/m2. 11. The right atrial size is normal. 12. Interatrial and interventricular septum intact. 13. The aortic valve is trileaflet and appears structurally normal. 14. The mitral valve is normal. 15. There is trace mitral regurgitation. 16. The tricuspid valve appears structurally normal. 17. Trace tricuspid regurgitation present. 18. Right ventricular systolic pressure is normal at < 35 mmHg. 19. There is no pulmonic regurgitation present. 20. The aortic root size is normal. 21. Normal inferior vena cava with normal inspiratory collapse consistent with estimated right atrial pressure of 5 mmHg. 22. There is no pericardial effusion. ABAP DEVELOPER: Rosa Sevilla RDCS
[2019-02-06 15:53] VITALS: BP 121/77; PULSE 80; TEMP 97.5
--- NOTE | 2019-02-06 23:16 | P.HPIM ---
History of Present Illness H&P Date: 02/06/19 Chief Complaint: Chest pain History of presenting complaint: This is a pleasant 33-year-old patient of Dr. Salgado. Chronic stable medical conditions include COPD, GERD, chronic low back pain, anxiety depression and a seizure that wasn't 2014. Patient been having chest pain what he described 4 months. Became worse yesterday. Not related to activity. Not worse with deep breathing. It is present in the anterior part of the chest. Does not radiate to the back of the arm. No dizziness no lightheadedness. There is some chest wall tenderness. Patient is a smoker. And is on disability. Not very active. Admitted to rule out a cardiac cause. Review of systems: GEN.: None EYES: None HEENT: None NECK: None RESPIRATORY: None CARDIOVASCULAR: As above GASTROINTESTINAL: None GENITOURINARY: None MUSCULOSKELETAL: Chronic low back pain LYMPHATICS: None HEMATOLOGICAL: None PSYCHIATRY: Anxious] NEUROLOGICAL: None Social history: Lives alone. On disability. Drinks about 12 beers a week. Smokes a pack and half open 15 years. Smokes about 3 g of marijuana daily. Physical examination: VITAL SIGNS: 97.5, 70, 18, 133/81, 98% room air GENERAL: BMI 33.5, laying in bed awake. EYES: Pupils equal. Conjunctiva normal. HEENT: External appearance of nose and ears normal, oral cavity grossly normal. NECK: JVD not raised; masses not palpable. HEART: First and second heart sounds are normal; no edema. LUNGS: Respiratory rate normal; clear to auscultation. ABDOMEN: Soft, nontender, liver spleen not palpable, no masses palpable. PSYCH: [Alert and oriented x3; mood and affect anxious l. NEUROLOGICAL: Cranial nerves grossly intact; no facial asymmetry, power and sensation grossly intact. LYMPHATICS: No lymph nodes palpable in the axilla and neck MUSCULOSKELETAL: Tenderness at the left costochondral junction INVESTIGATIONS, reviewed in the clinical context: White count 8.6 platelets 231 potassium 3.4 bun 17 creatinine 0.79 EKG tracing personally reviewed by me-normal sinus rhythm Chest x-ray film personally reviewed by me-lungs are clear Assessment: -Anterior chest wall pain present for months and some tenderness of left costochondral junction. Patient's risk factors include smoking. And possibly a family history. Hence cardiac causes been ruled out. -Obesity BMI 33.5 -Chronic nicotine dependence patient cigarette smoker -Recreational marijuana use -GERD -Anxiety depression otherwise specified Plan: Serial cardiac enzymes were negative. Cardiology was consulted. Home medications are to continue. Stress test was ordered.. Past Medical History Past Medical History: COPD, Seizure Disorder Additional Past Medical History / Comment(s): COPD, History of Any Multi-Drug Resistant Organisms: None Reported Past Surgical History: Ear Surgery Additional Past Surgical History / Comment(s): ear tubes Past Anesthesia/Blood Transfusion Reactions: No Reported Reaction Past Psychological History: Anxiety, Bipolar, Depression Smoking Status: Current every day smoker Past Alcohol Use History: Occasional Past Drug Use History: Marijuana - Past Family History Mother Family Medical History: Hypertension, Thyroid Disorder Father Family Medical History: COPD, Diabetes Mellitus, Hypertension Brother(s) Family Medical History: No Reported History Sister(s) Family Medical History: No Reported History Medications and Allergies Home Medications Medication Instructions Recorded Confirmed Type ARIPiprazole [Abilify] 10 mg PO HS 02/06/19 02/06/19 History Acetaminophen [Tylenol] 1,000 mg PO Q6H PRN 02/06/19 02/06/19 History Doxycycline [Vibramycin] 100 mg PO DAILY 02/06/19 02/06/19 History Ibuprofen [Motrin Ib] 400 mg PO Q6H PRN 02/06/19 02/06/19 History Omeprazole [PriLOSEC] 20 mg PO DAILY 02/06/19 02/06/19 History Propranolol HCl [Propranolol HCl 60 mg PO DAILY 02/06/19 02/06/19 History ER] hydrOXYzine HCL [Atarax] 100 mg PO HS 02/06/19 02/06/19 History valACYclovir HCL [Valtrex] 1,000 mg PO DAILY 02/06/19 02/06/19 History Allergies Allergy/AdvReac Type Severity Reaction Status Date / Time bupropion HCl Allergy Rash/Hives Verified 02/06/19 08:14 [From Wellbutrin] nitrofurantoin Allergy Unknown Verified 02/06/19 08:14 [From Macrobid] Sulfa (Sulfonamide Allergy Rash/Hives Verified 02/06/19 08:14 Antibiotics) Physical Exam Vitals: Vital Signs Temp Pulse Pulse Resp BP BP Pulse Ox 02/06/19 09:15 97.5 F L 70 18 133/81 98 02/06/19 09:06 86 18 140/60 98 02/06/19 08:19 98 F 83 20 129/82 98 02/06/19 06:46 92 20 131/76 98 02/06/19 05:18 18 02/06/19 04:44 98 F 97 20 156/102 100 Intake and Output 02/05/19 02/06/19 02/06/19 22:59 06:59 14:59 Other: Weight 108.862 kg Results CBC & Chem 7: 02/06/19 05:07 02/06/19 05:07 Labs: Abnormal Lab Results - Last 24 Hours (Table) 02/06/19 02/06/19 Range/Units 05:07 05:07 Hgb 17.6 H (13.0-17.5) gm/dL Potassium 3.4 L (3.5-5.1) mmol/L Glucose 105 H (74-99) mg/dL AST 60 H (17-59) U/L ALT 87 H (4-49) U/L
--- NOTE | 2019-02-06 23:19 | P.DS ---
Providers Date of admission: 02/06/19 06:26 Expected date of discharge: 02/06/19 Attending physician: Jeremiah Martinez Consults: 02/06/19 06:26 Consult Physician Routine Consulting Provider: Cecilio Thompson Consult Reason/Comments: UA Do you want consulting provider notified?: Yes Primary care physician: Trent Salgado [facility] Hospital Course: Chief Complaint: Chest pain Hospital course: This is a pleasant 33-year-old patient of Dr. Salgado. Chronic stable medical conditions include COPD, GERD, chronic low back pain, anxiety depression and a seizure that wasn't 2014. Patient been having chest pain what he described 4 months. Became worse yesterday. Not related to activity. Not worse with deep breathing. It is present in the anterior part of the chest. Does not radiate to the back of the arm. No dizziness no lightheadedness. There is some chest wall tenderness. Patient is a smoker. And is on disability. Not very active. Admitted to rule out a cardiac cause. Troponins were negative. 2-D was unremarkable with EF of 50-55%. Exercise stress test was negative. Patient has tenderness of the left costochondral junction. [facility] to be acute costochondritis Consultation: Dr. Thompson from cardiology Physical examination: VITAL SIGNS: 97.5, 80, 18, 121/77 GENERAL: BMI 33.5, laying in bed awake. EYES: Pupils equal. Conjunctiva normal. HEENT: External appearance of nose and ears normal, oral cavity grossly normal. NECK: JVD not raised; masses not palpable. HEART: First and second heart sounds are normal; no edema. LUNGS: Respiratory rate normal; clear to auscultation. ABDOMEN: Soft, nontender, liver spleen not palpable, no masses palpable. PSYCH: [Alert and oriented x3; mood and affect anxious l. MUSCULOSKELETAL: Tenderness at the left costochondral junction INVESTIGATIONS, reviewed in the clinical context: White count 8.6 platelets 231 potassium 3.4 bun 17 creatinine 0.79 EKG tracing personally reviewed by me-normal sinus rhythm Chest x-ray film personally reviewed by me-lungs are clear Assessment: -Anterior chest wall pain present for months and some tenderness of left costochondral junction. Acute on chronic costochondritis. -Obesity BMI 33.5 -Chronic nicotine dependence patient cigarette smoker -Recreational marijuana use -GERD -Anxiety depression otherwise specified Disposition: Home Patient Condition at Discharge: Stable Plan - Discharge Summary Discharge Rx Participant: No New Discharge Prescriptions: Continue valACYclovir HCL [Valtrex] 1,000 mg PO DAILY Acetaminophen [Tylenol] 1,000 mg PO Q6H PRN PRN Reason: Pain hydrOXYzine HCL [Atarax] 100 mg PO HS Propranolol HCl [Propranolol HCl ER] 60 mg PO DAILY Omeprazole [PriLOSEC] 20 mg PO DAILY Doxycycline [Vibramycin] 100 mg PO DAILY ARIPiprazole [Abilify] 10 mg PO HS Ibuprofen [Motrin Ib] 400 mg PO Q6H PRN PRN Reason: Pain Discharge Medication List ARIPiprazole [Abilify] 10 mg PO HS 02/06/19 [History] Acetaminophen [Tylenol] 1,000 mg PO Q6H PRN 02/06/19 [History] Doxycycline [Vibramycin] 100 mg PO DAILY 02/06/19 [History] Ibuprofen [Motrin Ib] 400 mg PO Q6H PRN 02/06/19 [History] Omeprazole [PriLOSEC] 20 mg PO DAILY 02/06/19 [History] Propranolol HCl [Propranolol HCl ER] 60 mg PO DAILY 02/06/19 [History] hydrOXYzine HCL [Atarax] 100 mg PO HS 02/06/19 [History] valACYclovir HCL [Valtrex] 1,000 mg PO DAILY 02/06/19 [History] Follow up Appointment(s)/Referral(s): Cecilio Thompson MD [STAFF PHYSICIAN] - 4 Weeks Trent Salgado DO [Primary Care Provider] - 1-2 days Patient Instructions/Handouts: Chest Pain (DC) Discharge Disposition: HOME SELF-CARE
== END 2019-02-06 17:25 | disposition home or self-care (01) ==
LOC: EC 04:38 → 3SCARD 06:26 → 1SOBS 08:09
PROVIDERS: ADMIT Hospitalist; ATTEND Hospitalist
DX: M94.0 Chondrocostal junction syndrome [Tietze] (principal); E66.9 Obesity, unspecified; E87.6 Hypokalemia; F17.210 Nicotine dependence, cigarettes, uncomplicated; F31.9 Bipolar disorder, unspecified; F41.9 Anxiety disorder, unspecified; G40.909 Epilepsy, unspecified, not intractable, without status epilepticus; G89.29 Other chronic pain; M54.5 Low back pain; I10 Essential (primary) hypertension; J44.9 Chronic obstructive pulmonary disease, unspecified; K21.9 Gastro-esophageal reflux disease without esophagitis; Z68.33 Body mass index [BMI] 33.0-33.9, adult; Z82.49 Family history of ischemic heart disease and other diseases of the circulatory system; Z82.5 Family history of asthma and other chronic lower respiratory diseases; Z83.3 Family history of diabetes mellitus; Z79.899 Other long term (current) drug therapy; Z88.1 Allergy status to other antibiotic agents; Z88.2 Allergy status to sulfonamides; Z88.8 Allergy status to other drugs, medicaments and biological substances; R74.0 Nonspecific elevation of levels of transaminase and lactic acid dehydrogenase [LDH]; Z79.1 Long term (current) use of non-steroidal anti-inflammatories (NSAID)
CPT/HCPCS: 96366 ×2; 96376; 96365; 96375; 99282; 36415; 93005; 93017; 93306; 83880; 80053; 83690; 83735; 84484; 85025; 85610; 85730; 71046; G0378; J1644 ×2; J2270; C9113

== ENCOUNTER 2019-02-28 17:55 | Emergency (ER) | payer MEDICARE, OTHER ==
[2019-02-28 18:09] VITALS: TEMP 98.2
--- NOTE | 2019-02-28 18:13 | ED ---
General Adult HPI - General Chief complaint: Chest Pain Stated complaint: Chest pain Time Seen by Provider: 02/28/19 18:08 Source: patient Mode of arrival: EMS Limitations: no limitations - History of Present Illness Initial comments: Patient presents the ED by ambulance for evaluation with his mother at bedside. Patient states that he has had constant left-sided chest pain since last night. Patient states that his pain is waxing and waning and radiates to his left shoulder at times. Patient states that his pain began after taking Adipex (phentermine) last night. Patient states that he is prescribed Adipex for weight loss. Patient states that his pain is currently minimal. Patient denies having any other symptoms or complaints. He denies trauma or injury, fever or chills, headache, focal neuro deficit, neck/jaw pain, back pain, pleuritic pain, dyspnea, cough or cold symptoms, pleuritic pain, palpitations, dizziness, nausea/vomiting/diaphoresis, abdominal pain, urinary symptoms, leg or calf swelling or pain, or any other symptoms or complaints. Patient admits to using marijuana today, but he denies any other illicit drug use. - Related Data Home Medications Medication Instructions Recorded Confirmed ARIPiprazole [Abilify] 10 mg PO HS 02/06/19 02/06/19 Acetaminophen [Tylenol] 1,000 mg PO Q6H PRN 02/06/19 02/06/19 Doxycycline [Vibramycin] 100 mg PO DAILY 02/06/19 02/06/19 Ibuprofen [Motrin Ib] 400 mg PO Q6H PRN 02/06/19 02/06/19 Omeprazole [PriLOSEC] 20 mg PO DAILY 02/06/19 02/06/19 Propranolol HCl [Propranolol HCl 60 mg PO DAILY 02/06/19 02/06/19 ER] hydrOXYzine HCL [Atarax] 100 mg PO HS 02/06/19 02/06/19 valACYclovir HCL [Valtrex] 1,000 mg PO DAILY 02/06/19 02/06/19 Allergies Allergy/AdvReac Type Severity Reaction Status Date / Time bupropion HCl Allergy Rash/Hives Verified 02/28/19 18:09 [From Wellbutrin] nitrofurantoin Allergy Unknown Verified 02/28/19 18:09 [From Macrobid] Sulfa (Sulfonamide Allergy Rash/Hives Verified 02/28/19 18:09 Antibiotics) Review of Systems ROS Statement: Those systems with pertinent positive or pertinent negative responses have been documented in the HPI. ROS Other: All systems not noted in ROS Statement are negative. Past Medical History Past Medical History: COPD, Seizure Disorder Additional Past Medical History / Comment(s): COPD, History of Any Multi-Drug Resistant Organisms: None Reported Past Surgical History: Ear Surgery Additional Past Surgical History / Comment(s): ear tubes Past Anesthesia/Blood Transfusion Reactions: No Reported Reaction Past Psychological History: Anxiety, Bipolar, Depression Smoking Status: Current every day smoker Past Alcohol Use History: Occasional Past Drug Use History: Marijuana - Past Family History Mother Family Medical History: Hypertension, Thyroid Disorder Father Family Medical History: COPD, Diabetes Mellitus, Hypertension Brother(s) Family Medical History: No Reported History Sister(s) Family Medical History: No Reported History General Exam Limitations: no limitations General appearance: alert, in no apparent distress Head exam: Present: atraumatic, normocephalic Eye exam: Present: normal appearance, PERRL, EOMI ENT exam: Present: mucous membranes moist Neck exam: Present: other (Trachea is in midline) Respiratory exam: Present: normal lung sounds bilaterally. Absent: respiratory distress, wheezes, rales, rhonchi, chest wall tenderness Cardiovascular Exam: Present: regular rate, normal rhythm, normal heart sounds, other (Normal radial pulses bilaterally) GI/Abdominal exam: Present: soft. Absent: distended, tenderness, guarding Extremities exam: Present: other (Negative Calli's sign bilaterally). Absent: tenderness, pedal edema, calf tenderness Neurological exam: Present: alert, oriented X3. Absent: motor sensory deficit Psychiatric exam: Present: flat affect Skin exam: Present: warm, dry, intact, normal color Course Vital Signs 02/28/19 18:07 Temperature 98.2 F Pulse Rate 65 Respiratory 18 Rate Blood Pressure 124/85 O2 Sat by Pulse 98 Oximetry - Reevaluation(s) Reevaluation #1: 02/28/19 21:37 Patient denies any change in his symptoms or development of any new symptoms while in the ED. Patient remains alert and breathing comfortably with a normal room air oxygen saturation. Patient and mother are aware of the patient's test results, and patient feels comfortable going home with his mother at this time. He was counseled about chest pain, and he was clearly explained return and follow-up instructions. He feels comfortable with this plan. EKG Findings - EKG Comments: EKG Findings:: Normal sinus rhythm, ventricular rate of 66 bpm, no ectopy, normal TN and QRS intervals, normal QT interval, normal axis, no ST or T-wave abnormality Medical Decision Making - Medical Decision Making Patient's ED workup, including EKG, chest x-ray and labs, is fairly unremarkable. Patient's troponin is negative, and he reports having constant pain since last night. Patient reports that his pain began after taking Adipex for the first time, and I suspect that it may be contributing to the patient's symptoms. Patient was instructed to consider discontinuation and to discuss this with his physician. Patient's vital signs are reassuring. Patient was instructed to return to the ED should he develop new or worsening pain, shortness of breath, a fever, vomiting, feeling dizzy or faint, or new or worsening symptoms. He was instructed to follow up closely with his primary care provider. He feels comfortable with this plan. - Lab Data Result diagrams: 02/28/19 19:03 02/28/19 19:03 Lab Results 02/28/19 02/28/19 02/28/19 Range/Units 19:03 19:03 19:03 WBC 6.9 (3.8-10.6) k/uL RBC 5.17 (4.30-5.90) m/uL Hgb 16.7 (13.0-17.5) gm/dL Hct 47.0 (39.0-53.0) % MCV 90.9 (80.0-100.0) fL MCH 32.2 (25.0-35.0) pg MCHC 35.4 (31.0-37.0) g/dL RDW 14.4 (11.5-15.5) % Plt Count 203 (150-450) k/uL Neutrophils % 63 % Lymphocytes % 26 % Monocytes % 5 % Eosinophils % 4 % Basophils % 1 % Neutrophils # 4.3 (1.3-7.7) k/uL Lymphocytes # 1.8 (1.0-4.8) k/uL Monocytes # 0.4 (0-1.0) k/uL Eosinophils # 0.2 (0-0.7) k/uL Basophils # 0.0 (0-0.2) k/uL PT (9.0-12.0) sec INR (<1.2) APTT (22.0-30.0) sec Sodium 141 (137-145) mmol/L Potassium 4.1 (3.5-5.1) mmol/L Chloride 112 H (98-107) mmol/L Carbon Dioxide 16 L (22-30) mmol/L Anion Gap 13 mmol/L BUN 13 (9-20) mg/dL Creatinine 0.78 (0.66-1.25) mg/dL Est GFR (CKD-EPI)AfAm >90 (>60 ml/min/1.73 sqM) Est GFR (CKD-EPI)NonAf >90 (>60 ml/min/1.73 sqM) Glucose 84 (74-99) mg/dL Calcium 9.6 (8.4-10.2) mg/dL Troponin I (0.000-0.034) ng/mL NT-Pro-B Natriuret Pep 18 pg/mL 02/28/19 02/28/19 Range/Units 20:05 20:55 WBC (3.8-10.6) k/uL RBC (4.30-5.90) m/uL Hgb (13.0-17.5) gm/dL Hct (39.0-53.0) % MCV (80.0-100.0) fL MCH (25.0-35.0) pg MCHC (31.0-37.0) g/dL RDW (11.5-15.5) % Plt Count (150-450) k/uL Neutrophils % % Lymphocytes % % Monocytes % % Eosinophils % % Basophils % % Neutrophils # (1.3-7.7) k/uL Lymphocytes # (1.0-4.8) k/uL Monocytes # (0-1.0) k/uL Eosinophils # (0-0.7) k/uL Basophils # (0-0.2) k/uL PT 10.6 (9.0-12.0) sec INR 1.0 (<1.2) APTT 24.2 (22.0-30.0) sec Sodium (137-145) mmol/L Potassium (3.5-5.1) mmol/L Chloride (98-107) mmol/L Carbon Dioxide (22-30) mmol/L Anion Gap mmol/L BUN (9-20) mg/dL Creatinine (0.66-1.25) mg/dL Est GFR (CKD-EPI)AfAm (>60 ml/min/1.73 sqM) Est GFR (CKD-EPI)NonAf (>60 ml/min/1.73 sqM) Glucose (74-99) mg/dL Calcium (8.4-10.2) mg/dL Troponin I <0.012 (0.000-0.034) ng/mL NT-Pro-B Natriuret Pep pg/mL - Radiology Data Radiology results: image reviewed (Chest x-ray is negative) Disposition Clinical Impression: Chest pain Disposition: HOME SELF-CARE Condition: Stable Instructions (If sedation given, give patient instructions): Chest Pain (ED) Additional Instructions: Return to the ER immediately should you develop new or worsening pain, a fever, shortness of breath, vomiting, feeling dizzy or faint, or new or worsening symptoms. Follow up closely with your primary care provider. Is patient prescribed a controlled substance at d/c from ED?: No Referrals: rTent Salgado DO [Primary Care Provider] - 1-2 days Time of Disposition: 21:39
--- NOTE | 2019-02-28 19:20 | XR ---
EXAMINATION TYPE: XR chest 2V DATE OF EXAM: 02/28/2019 COMPARISON: 02/06/2019 HISTORY: Chest pain TECHNIQUE: FINDINGS: Heart is normal. Lungs are clear of infiltrate. There is no heart failure. There are no hil ar masses. There are chest leads. Costophrenic angles are clear. IMPRESSION: No active cardiopulmonary disease. No change.
[2019-02-28 19:24] LABS: Basophils % (A) 1 %; Eosinophils # (A) 0.2 k/uL (0-0.7); Eosinophils % (A) 4 %; HGB 16.7 gm/dL (13.0-17.5); Lymphocytes # (A) 1.8 k/uL (1.0-4.8); Lymphocytes % (A) 26 %; MCH 32.2 pg (25.0-35.0); MCHC 35.4 g/dL (31.0-37.0); MCV 90.9 fL (80.0-100.0); Mean Platelet Volume 8.4; Monocytes # (A) 0.4 k/uL (0-1.0); Monocytes % (A) 5 %; Neutrophils # (A) 4.3 k/uL (1.3-7.7); Neutrophils % (A) 63 %; Platelet Count 203 k/uL (150-450); RBC 5.17 m/uL (4.30-5.90); RDW 14.4 % (11.5-15.5); WBC 6.9 k/uL (3.8-10.6)
[2019-02-28 19:40] LABS: African American GFR (CKD) >90 (>60 ml/min/1.73 sqM); Anion Gap 13 mmol/L; Blood Urea Nitrogen 13 mg/dL (9-20); Calcium 9.6 mg/dL (8.4-10.2); Carbon Dioxide 16 mmol/L (22-30); Chloride 112 mmol/L (98-107); Glucose 84 mg/dL (74-99); Non-African American GFR(CKD) >90 (>60 ml/min/1.73 sqM); Sodium 141 mmol/L (137-145)
[2019-02-28 19:41] LABS: Potassium 4.1 mmol/L (3.5-5.1)
[2019-02-28 21:00] LABS: Partial Thromboplastin Time 24.2 sec (22.0-30.0); Prothrombin Time 10.6 sec (9.0-12.0)
[2019-02-28 21:54] VITALS: BP 110/77; PULSE 81; RESP 14
== END 2019-02-28 22:00 | disposition home or self-care (01) ==
LOC: EC 17:55
DX: R07.9 Chest pain, unspecified (principal); M25.512 Pain in left shoulder; G40.909 Epilepsy, unspecified, not intractable, without status epilepticus; F31.9 Bipolar disorder, unspecified; F41.9 Anxiety disorder, unspecified; F17.200 Nicotine dependence, unspecified, uncomplicated; Z88.1 Allergy status to other antibiotic agents; Z88.2 Allergy status to sulfonamides; Z88.8 Allergy status to other drugs, medicaments and biological substances; Z79.899 Other long term (current) drug therapy; Z82.49 Family history of ischemic heart disease and other diseases of the circulatory system
CPT/HCPCS: 36415; 71046; 80048; 83880; 84484; 85025; 85610; 85730; 99285

== ENCOUNTER 2019-03-16 00:06 | Emergency (ER) | payer MEDICARE, OTHER ==
[2019-03-16 00:11] VITALS: TEMP 98.1
--- NOTE | 2019-03-16 00:49 | XR ---
EXAMINATION TYPE: XR chest 2V DATE OF EXAM: 03/16/2019 COMPARISON: 02/28/2019 HISTORY: Chest pain TECHNIQUE: FINDINGS: Heart and mediastinum are normal. Lungs are clear. Diaphragm is normal. Bony thorax appears normal. There are chest leads. IMPRESSION: No active cardiopulmonary disease. There is slight improved aeration of the lungs compare d to last exam.
[2019-03-16 01:01] LABS: Basophils # (A) 0.1 k/uL (0-0.2); Basophils % (A) 1 %; Eosinophils # (A) 0.3 k/uL (0-0.7); Eosinophils % (A) 4 %; HCT 50.2 % (39.0-53.0); HGB 17.1 gm/dL (13.0-17.5); Lymphocytes # (A) 2.6 k/uL (1.0-4.8); Lymphocytes % (A) 37 %; MCH 31.6 pg (25.0-35.0); MCHC 34.2 g/dL (31.0-37.0); MCV 92.3 fL (80.0-100.0); Monocytes # (A) 0.4 k/uL (0-1.0); Monocytes % (A) 6 %; Neutrophils # (A) 3.6 k/uL (1.3-7.7); Neutrophils % (A) 50 %; Platelet Count 246 k/uL (150-450); RBC 5.43 m/uL (4.30-5.90); RDW 13.9 % (11.5-15.5); WBC 7.1 k/uL (3.8-10.6)
[2019-03-16 01:09] VITALS: BP 155/107; PULSE 98; RESP 16
[2019-03-16 01:12] LABS: ALT 25 U/L (4-49); AST 30 U/L (17-59); African American GFR (CKD) >90 (>60 ml/min/1.73 sqM); Albumin 4.6 g/dL (3.5-5.0); Alkaline Phosphatase 72 U/L (38-126); Anion Gap 11 mmol/L; Blood Urea Nitrogen 17 mg/dL (9-20); Calcium 9.3 mg/dL (8.4-10.2); Carbon Dioxide 22 mmol/L (22-30); Chloride 107 mmol/L (98-107); Glucose 119 mg/dL (74-99); Magnesium 1.8 mg/dL (1.6-2.3); Non-African American GFR(CKD) >90 (>60 ml/min/1.73 sqM); Potassium 3.8 mmol/L (3.5-5.1); Sodium 140 mmol/L (137-145); Total Bilirubin 0.8 mg/dL (0.2-1.3); Total Protein 7.5 g/dL (6.3-8.2)
[2019-03-16 01:14] LABS: D-Dimer 0.19 mg/L FEU (<0.60); Partial Thromboplastin Time 23.4 sec (22.0-30.0); Prothrombin Time 10.3 sec (9.0-12.0)
--- NOTE | 2019-03-16 02:34 | ED ---
Chest Pain HPI - General Chief Complaint: Chest Pain Stated Complaint: Chest pain Time Seen by Provider: 03/16/19 00:15 Source: patient Mode of arrival: ambulatory Limitations: no limitations - History of Present Illness Initial Comments: Krystian is a 33-year-old woman and presents the ER today for evaluation of right upper chest pain. Patient reports he's been experiencing this for a number of months, he has been seen by his primary care physician and is scheduled to see a belly dancer eater this week due to his chronic pain and COPD secondary to his tory of smoking crack and cigarettes. he reports that after smoking crack on he's had worsening pain in his right upper chest that has been bothering him. He reports he hasn't smoked crack since due to the pain. He has continued to smoke marijuana and cigarettes. He denies any retrosternal her mid chest pain denies any pain with exertion. Denies any worsening shortness of breath. Denies any diaphoresis or lightheadedness. - Related Data Home Medications Medication Instructions Recorded Confirmed ARIPiprazole [Abilify] 10 mg PO HS 02/06/19 02/06/19 Acetaminophen [Tylenol] 1,000 mg PO Q6H PRN 02/06/19 02/06/19 Doxycycline [Vibramycin] 100 mg PO DAILY 02/06/19 02/06/19 Ibuprofen [Motrin Ib] 400 mg PO Q6H PRN 02/06/19 02/06/19 Omeprazole [PriLOSEC] 20 mg PO DAILY 02/06/19 02/06/19 Propranolol HCl [Propranolol HCl 60 mg PO DAILY 02/06/19 02/06/19 ER] hydrOXYzine HCL [Atarax] 100 mg PO HS 02/06/19 02/06/19 valACYclovir HCL [Valtrex] 1,000 mg PO DAILY 02/06/19 02/06/19 Allergies Allergy/AdvReac Type Severity Reaction Status Date / Time bupropion HCl Allergy Rash/Hives Verified 03/16/19 00:11 [From Wellbutrin] nitrofurantoin Allergy Unknown Verified 03/16/19 00:11 [From Macrobid] Sulfa (Sulfonamide Allergy Rash/Hives Verified 03/16/19 00:11 Antibiotics) Review of Systems ROS Statement: Those systems with pertinent positive or pertinent negative responses have been documented in the HPI. ROS Other: All systems not noted in ROS Statement are negative. EKG Findings - EKG Comments: EKG Findings:: EKG was obtained due to complaint of chest pain, EKG obtained at 12:20 AM, rate is 94 rhythm is narrow complex regular rhythm with P waves before each QRS consistent with sinus rhythm. Normal axis, normal intervals, MT 166, QRS 112, QTC 460. There are no acute ST elevations or depressions there is no evidence of acute ischemia, infarction or right heart strain. Past Medical History Past Medical History: COPD, Seizure Disorder Additional Past Medical History / Comment(s): COPD, History of Any Multi-Drug Resistant Organisms: None Reported Past Surgical History: Ear Surgery Additional Past Surgical History / Comment(s): ear tubes Past Anesthesia/Blood Transfusion Reactions: No Reported Reaction Past Psychological History: Anxiety, Bipolar, Depression Smoking Status: Current every day smoker Past Alcohol Use History: Occasional Past Drug Use History: Marijuana - Past Family History Mother Family Medical History: Hypertension, Thyroid Disorder Father Family Medical History: COPD, Diabetes Mellitus, Hypertension Brother(s) Family Medical History: No Reported History Sister(s) Family Medical History: No Reported History General Exam - General Exam Comments Initial Comments: Physical Exam GENERAL: Patient appears older than stated age, appears as though he takes very poor care of himself relatively poor health given his young age HENT: Normocephalic, Atraumatic. EYES: PERRL, EOMI PULMONARY: Unlabored respirations. No audible rales rhonchi or wheezing was noted. CARDIOVASCULAR: There is a regular rate and rhythm without any murmurs gallops or rubs. ABDOMEN: Soft and nontender with normal bowel sounds. SKIN: Skin is clear with no lesions or rashes and otherwise unremarkable. : Deferred NEUROLOGIC: Patient is alert and oriented x3. Moving all extremities spontaneously MUSCULOSKELETAL: Normal extremities with adequate strength and full range of motion. No lower extremity swelling or edema. No calf tenderness. PSYCHIATRIC: Normal psychiatric evaluation. Limitations: no limitations Course Vital Signs 03/16/19 03/16/19 00:09 01:08 Temperature 98.1 F Pulse Rate 110 H 98 Respiratory 20 16 Rate Blood Pressure 142/97 155/107 O2 Sat by Pulse 100 99 Oximetry Chest Pain MDM - MDM The patient was seen and evaluated the history is obtained from patient Is a 33-year-old male with chronic right-sided chest pain was worsening pain since been no acute change tonight Neck workup was ordered given that the patient has had persistent pain for 3 days and a type of pain that is not consistent with cardiac etiology I do feel seen a troponin will be adequate to rule out cardiac ischemia Chest x-ray and labs were relatively unremarkable Results were discussed with the patient who does express some relief, I did discuss with the patient the importance of smoking cessation including stopping smoking crack cocaine stopping smoking cigarettes and stop smoking marijuana. Advised the patient it is important to follow up with his belly dancer as scheduled. Time spent discussing smoking cessation was approximately 3-5 minutes. Tuning care were answered return parameters discussed patient discharged home in stable condition. Disposition Clinical Impression: Atypical chest pain Disposition: HOME SELF-CARE Condition: Stable Instructions (If sedation given, give patient instructions): Chest Pain (ED) Is patient prescribed a controlled substance at d/c from ED?: No Referrals: Trent Salgado DO [Primary Care Provider] - 1-2 days
== END 2019-03-16 02:40 | disposition home or self-care (01) ==
LOC: EC 00:06
DX: R07.89 Other chest pain (principal); G89.29 Other chronic pain; F12.90 Cannabis use, unspecified, uncomplicated; F17.210 Nicotine dependence, cigarettes, uncomplicated; F14.90 Cocaine use, unspecified, uncomplicated; F31.9 Bipolar disorder, unspecified; J44.9 Chronic obstructive pulmonary disease, unspecified; F41.9 Anxiety disorder, unspecified; Z79.899 Other long term (current) drug therapy; Z71.6 Tobacco abuse counseling; Z88.1 Allergy status to other antibiotic agents; Z88.2 Allergy status to sulfonamides; Z88.8 Allergy status to other drugs, medicaments and biological substances
CPT/HCPCS: 36415; 71046; 80053; 83690; 83735; 83880; 84484; 85025; 85379; 85610; 85730; 93005; 99285; 99406

== ENCOUNTER → 2019-03-17 | Outpatient (CLI) | payer MEDICARE, OTHER | LOC: CPPFTMAIN 10:24 | PROVIDERS: ATTEND Family Medicine | DX: J44.9 Chronic obstructive pulmonary disease, unspecified (principal) | CPT/HCPCS: 94060; 94726; 94729 ==

== ENCOUNTER 2019-03-19 23:49 | Emergency (ER) | payer MEDICARE, OTHER ==
[2019-03-20 00:02] VITALS: TEMP 98.3
[2019-03-20 00:54] LABS: Basophils # (A) 0.1 k/uL (0-0.2); Basophils % (A) 2 %; Eosinophils # (A) 0.2 k/uL (0-0.7); Eosinophils % (A) 4 %; HCT 50.7 % (39.0-53.0); HGB 17.6 gm/dL (13.0-17.5); Hyperchromasia Slight; Lymphocytes # (A) 1.3 k/uL (1.0-4.8); Lymphocytes % (A) 26 %; MCH 31.9 pg (25.0-35.0); MCHC 34.8 g/dL (31.0-37.0); MCV 91.6 fL (80.0-100.0); Mean Platelet Volume 7.8; Monocytes # (A) 0.3 k/uL (0-1.0); Monocytes % (A) 5 %; Neutrophils # (A) 3.2 k/uL (1.3-7.7); Neutrophils % (A) 63 %; Platelet Count 206 k/uL (150-450); RBC 5.53 m/uL (4.30-5.90); RDW 13.7 % (11.5-15.5); WBC 5.1 k/uL (3.8-10.6)
--- NOTE | 2019-03-20 00:55 | ED ---
General Adult HPI - General Chief complaint: Back Pain/Injury Stated complaint: Back Pain Source: patient Mode of arrival: ambulatory Limitations: no limitations - History of Present Illness Initial comments: Krystian is a 33-year-old male who presents to the emergency department today for evaluation of right-sided flank pain. Patient reports first time he experiences pain was approximately 5 months ago when he had receptive anal intercourse using a dill low. Patient reports the pain lasted for couple days at that time he didn't seek any care. He got better. Patient states the past approximately 2 months he's been having frequent diarrhea and dysuria he has seen his primary care he has been tested for initially transmitted infections he was negative. Patient reports over the past week his stool seemed to be more firm he still has some discomfort when urinating, discomfort primarily in the right flank. Patient reports that today he had worsening pain in the right flank similar to what expressed 5 months ago which prompted him to come to the ER for reevaluation. Patient reports he took 500 mg and naproxen and a gram of Tylenol prior to coming. - Related Data Home Medications Medication Instructions Recorded Confirmed ARIPiprazole [Abilify] 10 mg PO HS 02/06/19 02/06/19 Acetaminophen [Tylenol] 1,000 mg PO Q6H PRN 02/06/19 02/06/19 Doxycycline [Vibramycin] 100 mg PO DAILY 02/06/19 02/06/19 Ibuprofen [Motrin Ib] 400 mg PO Q6H PRN 02/06/19 02/06/19 Omeprazole [PriLOSEC] 20 mg PO DAILY 02/06/19 02/06/19 Propranolol HCl [Propranolol HCl 60 mg PO DAILY 02/06/19 02/06/19 ER] hydrOXYzine HCL [Atarax] 100 mg PO HS 02/06/19 02/06/19 valACYclovir HCL [Valtrex] 1,000 mg PO DAILY 02/06/19 02/06/19 Allergies Allergy/AdvReac Type Severity Reaction Status Date / Time bupropion HCl Allergy Rash/Hives Verified 03/20/19 00:02 [From Wellbutrin] nitrofurantoin Allergy Unknown Verified 03/20/19 00:02 [From Macrobid] Sulfa (Sulfonamide Allergy Rash/Hives Verified 03/20/19 00:02 Antibiotics) Review of Systems ROS Statement: Those systems with pertinent positive or pertinent negative responses have been documented in the HPI. ROS Other: All systems not noted in ROS Statement are negative. Past Medical History Past Medical History: COPD, Seizure Disorder Additional Past Medical History / Comment(s): COPD, History of Any Multi-Drug Resistant Organisms: None Reported Past Surgical History: Ear Surgery Additional Past Surgical History / Comment(s): ear tubes Past Anesthesia/Blood Transfusion Reactions: No Reported Reaction Past Psychological History: Anxiety, Bipolar, Depression Smoking Status: Current every day smoker Past Alcohol Use History: Occasional Past Drug Use History: Marijuana - Past Family History Mother Family Medical History: Hypertension, Thyroid Disorder Father Family Medical History: COPD, Diabetes Mellitus, Hypertension Brother(s) Family Medical History: No Reported History Sister(s) Family Medical History: No Reported History General Exam - General Exam Comments Initial Comments: Physical Exam GENERAL: Patient is well-developed and well-nourished. Patient is nontoxic and well- hydrated and is in no distress. HENT: Normocephalic, Atraumatic. EYES: PERRL, EOMI PULMONARY: Unlabored respirations. No audible rales rhonchi or wheezing was noted. CARDIOVASCULAR: There is a regular rate and rhythm without any murmurs gallops or rubs. ABDOMEN: Soft and nontender with normal bowel sounds. Mild tenderness to percussion of the right flank SKIN: Skin is clear with no lesions or rashes and otherwise unremarkable. : Deferred NEUROLOGIC: Patient is alert and oriented x3. Moving all extremities spontaneously MUSCULOSKELETAL: Normal extremities with adequate strength and full range of motion. No lower extremity swelling or edema. No calf tenderness. PSYCHIATRIC: Normal psychiatric evaluation. Limitations: no limitations Course Vital Signs 03/19/19 03/20/19 23:57 02:44 Temperature 98.3 F Pulse Rate 90 64 Respiratory 20 18 Rate Blood Pressure 168/92 132/80 O2 Sat by Pulse 100 97 Oximetry Medical Decision Making - Medical Decision Making The patient was seen and evaluated history of " A 39-year-old male who seems to have some musculoskeletal right-sided flank pain no history kidney stones no dysuria though he does say he urinates frequently Labs and imaging were obtained Labs and imaging were relatively unremarkable patient's hemoglobin is elevated likely hemoconcentration x-ray was unremarkable results were discussed the patient feels reassured and is comfortable with plan for discharge home symptomatically care - Lab Data Result diagrams: 03/20/19 00:45 03/20/19 00:45 Lab Results 03/20/19 03/20/19 03/20/19 Range/Units 00:45 00:45 00:45 WBC 5.1 (3.8-10.6) k/uL RBC 5.53 (4.30-5.90) m/uL Hgb 17.6 H (13.0-17.5) gm/dL Hct 50.7 (39.0-53.0) % MCV 91.6 (80.0-100.0) fL MCH 31.9 (25.0-35.0) pg MCHC 34.8 (31.0-37.0) g/dL RDW 13.7 (11.5-15.5) % Plt Count 206 (150-450) k/uL Neutrophils % 63 % Lymphocytes % 26 % Monocytes % 5 % Eosinophils % 4 % Basophils % 2 % Neutrophils # 3.2 (1.3-7.7) k/uL Lymphocytes # 1.3 (1.0-4.8) k/uL Monocytes # 0.3 (0-1.0) k/uL Eosinophils # 0.2 (0-0.7) k/uL Basophils # 0.1 (0-0.2) k/uL Hyperchromasia Slight Sodium 140 (137-145) mmol/L Potassium 3.8 (3.5-5.1) mmol/L Chloride 107 (98-107) mmol/L Carbon Dioxide 24 (22-30) mmol/L Anion Gap 9 mmol/L BUN 12 (9-20) mg/dL Creatinine 0.71 (0.66-1.25) mg/dL Est GFR (CKD-EPI)AfAm >90 (>60 ml/min/1.73 sqM) Est GFR (CKD-EPI)NonAf >90 (>60 ml/min/1.73 sqM) Glucose 100 H (74-99) mg/dL Calcium 9.3 (8.4-10.2) mg/dL Total Bilirubin 0.6 (0.2-1.3) mg/dL AST 28 (17-59) U/L ALT 26 (4-49) U/L Alkaline Phosphatase 70 (38-126) U/L Total Protein 7.5 (6.3-8.2) g/dL Albumin 4.5 (3.5-5.0) g/dL Lipase 121 (23-300) U/L Urine Color Yellow Urine Appearance Clear (Clear) Urine pH 5.5 (5.0-8.0) Ur Specific [place] 1.009 (1.001-1.035) Urine Protein Negative (Negative) Urine Glucose (UA) Negative (Negative) Urine Ketones Negative (Negative) Urine Blood Negative (Negative) Urine Nitrite Negative (Negative) Urine Bilirubin Negative (Negative) Urine Urobilinogen <2.0 (<2.0) mg/dL Ur Leukocyte Esterase Negative (Negative) Disposition Clinical Impression: Mechanical back pain Disposition: HOME SELF-CARE Condition: Stable Instructions (If sedation given, give patient instructions): Acute Low Back Pain (ED) Is patient prescribed a controlled substance at d/c from ED?: No Referrals: Trent Salgado DO [Primary Care Provider] - 1-2 days
[2019-03-20 00:56] LABS: Appearance,Urine Clear (Clear); Bilirubin,Urine Negative (Negative); Blood,Urine Negative (Negative); Color,Urine Yellow; Glucose,Urine (UA) Negative (Negative); Ketones,Urine Negative (Negative); Leukocyte Esterase,Urine Negative (Negative); Nitrite,Urine Negative (Negative); PH, Urine 5.5 (5.0-8.0); Protein,Urine Negative (Negative); Specific Gravity,Urine 1.009 (1.001-1.035); Urobilinogen,Urine <2.0 mg/dL (<2.0)
[2019-03-20 01:02] LABS: ALT 26 U/L (4-49); AST 28 U/L (17-59); African American GFR (CKD) >90 (>60 ml/min/1.73 sqM); Albumin 4.5 g/dL (3.5-5.0); Alkaline Phosphatase 70 U/L (38-126); Anion Gap 9 mmol/L; Blood Urea Nitrogen 12 mg/dL (9-20); Calcium 9.3 mg/dL (8.4-10.2); Carbon Dioxide 24 mmol/L (22-30); Chloride 107 mmol/L (98-107); Glucose 100 mg/dL (74-99); Non-African American GFR(CKD) >90 (>60 ml/min/1.73 sqM); Potassium 3.8 mmol/L (3.5-5.1); Sodium 140 mmol/L (137-145); Total Bilirubin 0.6 mg/dL (0.2-1.3); Total Protein 7.5 g/dL (6.3-8.2)
--- NOTE | 2019-03-20 01:11 | XR ---
EXAMINATION TYPE: XR abdomen 2V DATE OF EXAM: 03/20/2019 COMPARISON: 10/13/2018 HISTORY: Back pain TECHNIQUE: 2 views upright and supine FINDINGS: Bowel gas pattern is normal. There is no sign of intestinal obstruction or pneumoperitoneum . Fecal pattern is normal. There is no evidence of a mass. Lung bases are clear. There are no patholo gic calcifications. IMPRESSION: Nonacute abdomen. No change.
[2019-03-20] MEDS ORDERED: ORPHENADRINE 30 MG/ML 2 ML VIAL IM STA (02:17)
[2019-03-20 02:45] VITALS: BP 132/80; PULSE 64; RESP 18
== END 2019-03-20 02:51 | disposition home or self-care (01) ==
LOC: EC 23:49
DX: M54.9 Dorsalgia, unspecified (principal); R10.9 Unspecified abdominal pain; R35.0 Frequency of micturition; F31.9 Bipolar disorder, unspecified; F41.9 Anxiety disorder, unspecified; F17.200 Nicotine dependence, unspecified, uncomplicated; Z88.1 Allergy status to other antibiotic agents; Z88.2 Allergy status to sulfonamides; Z88.8 Allergy status to other drugs, medicaments and biological substances; Z79.899 Other long term (current) drug therapy
CPT/HCPCS: 36415; 74019; 80053; 81003; 83690; 85025; 96372; 99283

== ENCOUNTER 2019-05-26 16:23 | Emergency (ER) | payer MEDICARE, OTHER ==
[2019-05-26] MEDS ORDERED: SODIUM CHLORIDE 0.9% 1,000 ML IV STA (16:38)
[2019-05-26] MEDS ORDERED: KETOROLAC 30 MG/ML 1 ML VIAL IVP STA (16:38)
--- NOTE | 2019-05-26 16:51 | ED ---
Chest Pain HPI - General Chief Complaint: Chest Pain Stated Complaint: Chest pain Time Seen by Provider: 05/26/19 16:31 Source: patient, RN notes reviewed, old records reviewed Mode of arrival: ambulatory Limitations: no limitations - History of Present Illness Initial Comments: Patient is a 33-year-old male presents via EMS with chief complaint of chest pain. Patient reports that he was laying in bed felt palpitations and some chest pain and called EMS. Patient reports that he is a daily smoker, smokes marijuana. He did smoke marijuana today. Patient states that he's had no fevers or chills. He reports chronic cough due to smoking. Patient states that he has no nausea or vomiting. - Related Data Home Medications Medication Instructions Recorded Confirmed Propranolol HCl [Propranolol HCl 60 mg PO DAILY 02/06/19 05/26/19 ER] valACYclovir HCL [Valtrex] 1,000 mg PO DAILY 02/06/19 05/26/19 Cholecalciferol (Vitamin D3) 50 mcg PO DAILY 05/26/19 05/26/19 [Vitamin D3] Ibuprofen [Motrin] 800 mg PO TID PRN 05/26/19 05/26/19 Omeprazole [PriLOSEC] 40 mg PO DAILY 05/26/19 05/26/19 hydrOXYzine PAMOATE [Vistaril] 25 mg PO TID PRN 05/26/19 05/26/19 Allergies Allergy/AdvReac Type Severity Reaction Status Date / Time bupropion HCl Allergy Rash/Hives Verified 05/26/19 17:46 [From Wellbutrin] nitrofurantoin Allergy Unknown Verified 05/26/19 17:46 [From Macrobid] Sulfa (Sulfonamide Allergy Rash/Hives Verified 05/26/19 17:46 Antibiotics) Review of Systems ROS Statement: Those systems with pertinent positive or pertinent negative responses have been documented in the HPI. ROS Other: All systems not noted in ROS Statement are negative. EKG Findings - EKG Comments: EKG Findings:: Patient is a 33-year-old male. EKG performed at 1631 shows normal sinus rhythm normal ECG. Ventricular rate is 69 bpm. WI interval is 170 ms. QRS duration is 98 ms. QT QTc 390/417 ms. Past Medical History Past Medical History: COPD, Seizure Disorder Additional Past Medical History / Comment(s): COPD, History of Any Multi-Drug Resistant Organisms: None Reported Past Surgical History: Ear Surgery Additional Past Surgical History / Comment(s): ear tubes Past Anesthesia/Blood Transfusion Reactions: No Reported Reaction Past Psychological History: Anxiety, Bipolar, Depression Smoking Status: Current every day smoker Past Alcohol Use History: Occasional Past Drug Use History: Marijuana - Past Family History Mother Family Medical History: Hypertension, Thyroid Disorder Father Family Medical History: COPD, Diabetes Mellitus, Hypertension Brother(s) Family Medical History: No Reported History Sister(s) Family Medical History: No Reported History General Exam - General Exam Comments Initial Comments: Alert and oriented 33-year-old male. No distress. Slow speaking and response to questions. General: Well appearing, well nourished, in no distress. Oriented x 3, normal mood and affect . Ambulating without difficulty. Patient appears intoxicated. Skin: Good turgor, no rash, unusual bruising or prominent lesions Hair: Normal texture and distribution. HEENT: Head: Normocephalic, atraumatic, no visible or palpable masses, depressions, or scaring. Eyes: Visual acuity intact, conjunctival injection bilaterally. Ears: EACs clear, TMs translucent & cone of light visualized. hearing intact. Nose: No external lesions, mucosa non-inflamed, septum and turbinates normal Mouth: Mucous membranes moist, no mucosal lesions. Teeth/Gums: No obvious caries or periodontal disease. No gingival inflammation or significant resorption. Pharynx: Mucosa non-inflamed, no tonsillar hypertrophy or exudate Neck: Supple, without lesions, bruits, or adenopathy, thyroid non-enlarged and non-tender Heart: No cardiomegaly or thrills; regular rate and rhythm, no murmur or gallop Lungs: Clear to auscultation and percussion Abdomen: Bowel sounds normal, no tenderness, organomegaly, masses, or hernia Back: Spine normal without deformity or tenderness, no CVA tenderness Musculoskeletal: Normal gait and station. No misalignment, asymmetry, crepitation, defects, tenderness, masses, effusions, decreased range of motion, instability, atrophy or abnormal strength or tone in the head, neck, spine, ribs, pelvis or extremities. Neurologic: CN 2-12 normal. Sensation to pain, touch, and proprioception normal. DTRs normal in upper and lower extremities. No pathologic reflexes. Psychiatric: Oriented X3, intact recent and remote memory, judgment and insight, normal mood and affect. 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 Patient was smoking marijuana today and reports the symptoms occurred after. He appears to be under the influence of marijuana, slow speech. Patient was given IV fluids labwork obtained. EKG is negative for acute process. Chest x-ray is normal. Troponin test is negative for any changes. Discussed Patient was given Toradol for pain for his chest and he reports i mprovement. He states that he feels well and wants to go home. I discussed return parameters and following up with primary care doctor. Disposition Clinical Impression: Atypical chest pain, Marijuana use Disposition: HOME SELF-CARE Instructions (If sedation given, give patient instructions): Chest Pain (ED) Additional Instructions: Patient advised to follow-up with your PCP. Stop smoking. Return to ED if alarming signs or symptoms occur. Is patient prescribed a controlled substance at d/c from ED?: No Referrals: Trent Salgado DO [Primary Care Provider] - 1-2 days Time of Disposition: 18:25
[2019-05-26 17:12] LABS: Basophils % (A) 1 %; Eosinophils # (A) 0.2 k/uL (0-0.7); Eosinophils % (A) 4 %; HCT 45.2 % (39.0-53.0); HGB 16.6 gm/dL (13.0-17.5); Hyperchromasia Moderate; Lymphocytes # (A) 1.5 k/uL (1.0-4.8); Lymphocytes % (A) 29 %; MCH 32.8 pg (25.0-35.0); MCHC 36.7 g/dL (31.0-37.0); MCV 89.4 fL (80.0-100.0); Mean Platelet Volume 8.7; Monocytes # (A) 0.3 k/uL (0-1.0); Monocytes % (A) 6 %; Neutrophils # (A) 3.1 k/uL (1.3-7.7); Neutrophils % (A) 58 %; Platelet Count 211 k/uL (150-450); RBC 5.05 m/uL (4.30-5.90); RDW 12.9 % (11.5-15.5); WBC 5.4 k/uL (3.8-10.6)
[2019-05-26 17:18] LABS: ALT 27 U/L (4-49); AST 32 U/L (17-59); African American GFR (CKD) >90 (>60 ml/min/1.73 sqM); Albumin 4.6 g/dL (3.5-5.0); Alkaline Phosphatase 67 U/L (38-126); Anion Gap 8 mmol/L; Blood Urea Nitrogen 14 mg/dL (9-20); Calcium 9.1 mg/dL (8.4-10.2); Carbon Dioxide 25 mmol/L (22-30); Chloride 106 mmol/L (98-107); Glucose 111 mg/dL (74-99); Magnesium 1.8 mg/dL (1.6-2.3); Non-African American GFR(CKD) >90 (>60 ml/min/1.73 sqM); Sodium 139 mmol/L (137-145); Total Bilirubin 0.7 mg/dL (0.2-1.3); Total Protein 7.5 g/dL (6.3-8.2)
[2019-05-26 17:21] LABS: Potassium 4.4 mmol/L (3.5-5.1)
--- NOTE | 2019-05-26 17:22 | XR ---
EXAMINATION TYPE: XR chest 1V DATE OF EXAM: 05/26/2019 COMPARISON: Chest x-ray March 16, 2019 HISTORY: Chest pain today. TECHNIQUE: Single frontal view of the chest is obtained. FINDINGS: There is chronic parenchymal change without suspicious focal air space opacity, pleural ef fusion, or pneumothorax seen. The cardiac silhouette size is stable and upper limits of normal. Over lying EKG leads are redemonstrated. The osseous structures are intact. IMPRESSION: No acute process. No significant change from prior.
[2019-05-26 17:31] LABS: Partial Thromboplastin Time 24.2 sec (22.0-30.0)
[2019-05-26 18:36] VITALS: BP 127/88; PULSE 70; RESP 18; TEMP 99.5
== END 2019-05-26 18:35 | disposition home or self-care (01) ==
LOC: EC 16:23
DX: F12.20 Cannabis dependence, uncomplicated (principal); R07.89 Other chest pain; R00.2 Palpitations; R05 Cough; Z88.1 Allergy status to other antibiotic agents; Z88.2 Allergy status to sulfonamides; Z88.8 Allergy status to other drugs, medicaments and biological substances; Z87.09 Personal history of other diseases of the respiratory system; Z80.49 Family history of malignant neoplasm of other genital organs; Z82.5 Family history of asthma and other chronic lower respiratory diseases
CPT/HCPCS: 36415; 93005; 80053; 83735; 84484; 85025; 85610; 85730; 71045; 99285; 96374; 96361; J1885

== ENCOUNTER 2019-07-16 19:48 | Inpatient (IN) | payer MEDICARE, MEDICAID ==
[2019-07-16] MEDS ORDERED: ACETAMINOPHEN TAB 500 MG TAB PO STA (20:32)
--- NOTE | 2019-07-16 21:34 | ED ---
Psych HPI - General Chief Complaint: Psychiatric Symptoms Stated Complaint: Mental Health Time Seen by Provider: 07/16/19 20:02 Source: patient Mode of arrival: ambulatory - History of Present Illness Initial Comments: 33-year-old male patient presents to the emergency department today for evaluation of what he calls delusions. Patient states for the last 4 months he has been experiencing these delusions, states that every person he sees he feels like they are out to get him and want to harm him. He states that he comes up with conspiracies in his head about what each person is doing and thinking about him. States depending on the conspiracy he sometimes wants to harm them or feels like he has to defend himself. Patient states that he does occasionally have suicidal ideations. States that he has been thinking about suicide today, but denies a plan to me. He admits to marijuana use and occasional alcohol use. He denies any current physical symptoms or concerns. Patient denies any recent rash, fever, chills, cough, shortness of breath, chest pain, abdominal pain, nausea, vomiting, diarrhea, constipation, back pain, numbness, tingling, dizziness, weakness, hematuria, dysuria, urinary urgency, urinary frequency, headache, visual changes, or any other complaints. - Related Data Home Medications Medication Instructions Recorded Confirmed Propranolol HCl [Propranolol HCl 60 mg PO DAILY 02/06/19 05/26/19 ER] valACYclovir HCL [Valtrex] 1,000 mg PO DAILY 02/06/19 05/26/19 Cholecalciferol (Vitamin D3) 50 mcg PO DAILY 05/26/19 05/26/19 [Vitamin D3] Ibuprofen [Motrin] 800 mg PO TID PRN 05/26/19 05/26/19 Omeprazole [PriLOSEC] 40 mg PO DAILY 05/26/19 05/26/19 hydrOXYzine PAMOATE [Vistaril] 25 mg PO TID PRN 05/26/19 05/26/19 Allergies Allergy/AdvReac Type Severity Reaction Status Date / Time bupropion HCl Allergy Rash/Hives Verified 07/16/19 19:57 [From Wellbutrin] nitrofurantoin Allergy Unknown Verified 07/16/19 19:57 [From Macrobid] Sulfa (Sulfonamide Allergy Rash/Hives Verified 07/16/19 19:57 Antibiotics) Review of Systems ROS Statement: Those systems with pertinent positive or pertinent negative responses have been documented in the HPI. ROS Other: All systems not noted in ROS Statement are negative. Past Medical History Past Medical History: COPD, Seizure Disorder Additional Past Medical History / Comment(s): COPD, scabies, History of Any Multi-Drug Resistant Organisms: None Reported Past Surgical History: Ear Surgery Additional Past Surgical History / Comment(s): ear tubes Past Anesthesia/Blood Transfusion Reactions: No Reported Reaction Past Psychological History: Anxiety, Bipolar, Depression Smoking Status: Current every day smoker Past Alcohol Use History: Occasional Past Drug Use History: Marijuana - Past Family History Mother Family Medical History: Hypertension, Thyroid Disorder Father Family Medical History: COPD, Diabetes Mellitus, Hypertension Brother(s) Family Medical History: No Reported History Sister(s) Family Medical History: No Reported History General Exam Limitations: no limitations General appearance: alert, in no apparent distress, other (This is a well- developed, well-nourished adult male patient in no acute distress. Vital signs upon presentation are temperature 98.4F, pulse 106, respirations 18, blood pressure 145/93, pulse ox 99% on room air.) Eye exam: Present: normal appearance, PERRL, EOMI. Absent: scleral icterus, conjunctival injection, periorbital swelling ENT exam: Present: normal exam, normal oropharynx, mucous membranes moist Respiratory exam: Present: normal lung sounds bilaterally. Absent: respiratory distress, wheezes, rales, rhonchi, stridor Cardiovascular Exam: Present: regular rate, normal rhythm, normal heart sounds. Absent: systolic murmur, diastolic murmur, rubs, gallop, clicks GI/Abdominal exam: Present: soft, normal bowel sounds. Absent: distended, tenderness, guarding, rebound, rigid Neurological exam: Present: alert, oriented X3, CN II-XII intact Psychiatric exam: Present: normal affect, normal mood Skin exam: Present: warm, dry, intact, normal color. Absent: rash Course Vital Signs 07/16/19 19:54 Temperature 98.4 F Pulse Rate 106 H Respiratory 18 Rate Blood Pressure 145/93 O2 Sat by Pulse 99 Oximetry Medical Decision Making - Medical Decision Making 33-year-old male patient presented to the emergency department today for evaluation of delusions and paranoid thoughts. He also reported suicidal ideation. He was seen and evaluated by emergency psychiatric services after being cleared medically. It is felt that he would benefit from inpatient admission he'll be transferred to the mental health unit. - Lab Data Lab Results 07/16/19 Range/Units 21:30 Urine Opiates Screen Not Detected (NotDetected) Ur Oxycodone Screen Not Detected (NotDetected) Urine Methadone Screen Not Detected (NotDetected) Ur Propoxyphene Screen Not Detected (NotDetected) Ur Barbiturates Screen Not Detected (NotDetected) U Tricyclic Antidepress Not Detected (NotDetected) Ur Phencyclidine Scrn Not Detected (NotDetected) Ur Amphetamines Screen Not Detected (NotDetected) U Methamphetamines Scrn Not Detected (NotDetected) U Benzodiazepines Scrn Not Detected (NotDetected) Urine Cocaine Screen Not Detected (NotDetected) U Marijuana (THC) Screen Detected H (NotDetected) Disposition Clinical Impression: Suicidal ideation, Paranoia Disposition: TRANSFER TO PSYCH HOSP/UNIT Condition: Serious Referrals: Trent Salgado DO [Primary Care Provider] - 1-2 days - Out of Hospital Transfer - Req. Specs Out of Hospital Transfer - Requested Specifics: Psychiatric Non-ICU ([facility])
[2019-07-16 22:01] LABS: Urn Cannabinoid Scrn Detected (NotDetected)
[2019-07-16 22:02] LABS: Amphetamine Screen,Urine Not Detected (NotDetected); Barbiturate Screen,Urine Not Detected (NotDetected); Benzodiazepines Screen,Urine Not Detected (NotDetected); Cocaine Screen,Urine Not Detected (NotDetected); Methadone Screen, Urine Not Detected (NotDetected); Opiate Screen,Urine Not Detected (NotDetected); Oxycodone Screen, Urine Not Detected (NotDetected); Phencyclidine Screen,Urine Not Detected (NotDetected); Tricyclic Antidepressant,Urine Not Detected (NotDetected)
[2019-07-16] MEDS ORDERED: MAGNESIUM HYDROXIDE 2,400 MG/10 ML CUP PO PRN (23:47)
[2019-07-16] MEDS ORDERED: MAG HYDROX/AL HYDROX/SIMETH 30 ML CUP PO PRN (23:47)
[2019-07-16] MEDS ORDERED: LORazepam 2 MG/ML INJ IM PRN (23:49)
[2019-07-17] MEDS: LORazepam 1 MG TAB PO PRN ×3 (00:08→17:39)
[2019-07-17 08:54] LABS: Basophils % (A) 1 %; Eosinophils # (A) 0.2 k/uL (0-0.7); Eosinophils % (A) 4 %; HCT 47.9 % (39.0-53.0); Lymphocytes # (A) 2.3 k/uL (1.0-4.8); Lymphocytes % (A) 40 %; MCH 32.7 pg (25.0-35.0); MCHC 35.5 g/dL (31.0-37.0); MCV 92.2 fL (80.0-100.0); Mean Platelet Volume 8.1; Monocytes # (A) 0.3 k/uL (0-1.0); Monocytes % (A) 5 %; Neutrophils # (A) 2.7 k/uL (1.3-7.7); Neutrophils % (A) 48 %; Platelet Count 224 k/uL (150-450); RDW 12.5 % (11.5-15.5); WBC 5.7 k/uL (3.8-10.6)
[2019-07-17 08:58] LABS: ALT 67 U/L (4-49); AST 63 U/L (17-59); African American GFR (CKD) >90 (>60 ml/min/1.73 sqM); Albumin 4.4 g/dL (3.5-5.0); Alkaline Phosphatase 75 U/L (38-126); Anion Gap 8 mmol/L; Blood Urea Nitrogen 17 mg/dL (9-20); Calcium 9.5 mg/dL (8.4-10.2); Carbon Dioxide 26 mmol/L (22-30); Chloride 106 mmol/L (98-107); Cholesterol 168 mg/dL (<200); Glucose 101 mg/dL (74-99); HDL Cholesterol 23 mg/dL (40-60); Non-African American GFR(CKD) >90 (>60 ml/min/1.73 sqM); Sodium 140 mmol/L (137-145); Total Bilirubin 0.5 mg/dL (0.2-1.3); Total Protein 7.3 g/dL (6.3-8.2); Triglycerides 432 mg/dL (<150)
[2019-07-17] MEDS: ARIPiprazole 15 MG TAB PO SCH (09:32)
[2019-07-17] MEDS: valACYclovir HCL 1,000 MG TABLET PO SCH (10:40)
[2019-07-17] MEDS: PANTOPRAZOLE 40 MG TABLET PO SCH (10:40)
[2019-07-17] MEDS: PROPRANOLOL LA 60 MG CAP.SA.24H PO SCH (10:40)
--- NOTE | 2019-07-17 14:24 | P.HP ---
Psychiatric H&P - . H&P Date: 07/17/19 History & Physical: IDENTIFYING DATA: He is a 33-year-old single male who presented to psychiatric voluntarily with increased paranoia and paranoid delusions. HISTORY OF PRESENT ILLNESS: I reviewed the medical record and interviewed the patient. He presented to the emergency room with complaints of suicidal ideation and reported plan to hang himself. He described a fixed belief that he saw somebody outside his apartment with a cell phone and recording him. He expressed thoughts of wanting to hurt that person. During our interview he had difficulty expressing himself. He had marked psychomotor slowing and long pauses between answers and between statements sentences. He is markedly paranoid and expressed paranoid ideation and paranoid delusional beliefs. He believes that "drug dealers" or "drug users" are watching him and following him. He believes that there are cameras hidden in his apartment and suspects that his landlord is watching him. He also believes that when he and his roommate leave the apartment, neighbors or "drug dealers," come into apartment and steal his marijuana and food. He talked about wanting to buy a camera so he could catch them and the affect of breaking into apartment and stealing his belongings. He moved into this apartment at the beginning of June because he had similar experiences and his former apartment to the point where he felt too frightened to remain. He talked about seeing "drug dealers" watching him. When I asked the reason for hospitalization he replied that "a couple months ago [pause] my father asked me where he lived [pause] I pointed down the street [pause] he told someone [pause] they found me [pause] the drug dealers [pause] I blocked their number from my phone." He also talked about experience where someone in a car stopped him outside of his apartment and as ked him if there was a vacancy. He felt suspicious of their behavior and believes these people were among those that are following him and watching him. He feels depressed, hopeless and helpless with regard to the above situation where he feels that he is being watched, followed an secretly observed. He denied suicidal ideation during our interview but talked about feeling as though he needs to "protect himself". He denied owning a gun anddenied that he's caring a knife or other weapon on his person to protect himself. He did not identify a specific person who was the object of his fear or concern. He did not express homicidal ideation towards a identifiable person. He feels anxious and distressed about the situation. However, he denied experiencing auditory, visual or olfactory hallucinations. He experienced a "crawling" sensation on his skin. He feels that "they" are trying to send him messages but denied thought control or thought broadcasting. He described recurrent experiences consistent with ideas of reference. PAST PSYCHIATRIC HISTORY: His last admission to this unit was in November 2017. He denied psychiatric admissions to other facilities between his last and this admission. He is enrolled with [facility] on 06/25/2019. His diagnosis according to the [facility] documents his major depressive disorder recurrent, cannabis use disorder severe, opiate use disorder severe, alcohol use disorder moderate, cocaine use disorder moderate, inhalant use disorder severe and borderline personality disorder. His only medications or propranolol 25 mg 3 times a day and Vistaril 25 mg 3 times a day when necessary for anxiety. He talked about having been referred to [facility] for "counseling". PAST MEDICAL HISTORY: According to record he has a history of COPD and a seizure disorder. ALLERGIES: Bupropion, nitrofurantoin, sulfa SUBSTANCE USE HISTORY: He was unwilling to talk about her substance use history other than working repeatedly insisting that he doesn't use drugs anymore with the exception of marijuana. According to record, he has a history of cannabis, opioid, alcohol, cocaine and an insulin use disorder. FAMILY PSYCHIATRIC/SUBSTANCE USE HISTORY: He has a cousin with a history of a mental illness. LEGAL HISTORY: According to the [facility] court docket he is under a substance abuse treatment order begining in 2018 SOCIAL HISTORY: He lives in an apartment he shares with a roommate. He is unemployed and receives Social Security disability income. He has not worked since his last admission to this unit. MENTAL STATUS EXAM: He presented as a tall stocky 33-year-old male who had marked psychomotor slowing. He did not make eye contact during the interview. He had no distinguishing features or prominent physical abnormalities. He had a sad facial expression. He was alert and oriented to person, place and time. He showed no abnormal involuntary movements. Her speech was not spontaneous. There are long pauses between statements sentences. He had decreased rhythm and decreased volume. He had no articulation difficulties. His affect was depressed and unreactive. He did not express suicidal homicidal ideation. He expressed vague suicidal ideation without a specific object. He has depressive cognitions including hopelessness and helplessness. He ruminated over his chronic paranoid ideation and delusional beliefs. He expressed ideas of reference his thinking was concrete but his associations were coherent and logical. He demonstrated blocking, paucity of speech paucity of content. He denied hallucinations and did not appear to be responding to internal stimuli. Global impression of intellect is average. He has awareness of his illness and need for treatment. STRENGTHS: Stable housing, stable income, good health, engagement with community mental health services WEAKNESSES: Marked paranoia, continued marijuana use IMPRESSION: He is a 33-year-old single male with a long history of mental illness. He presented to unit with suicidal and homicidal ideation and the context of marked paranoia and paranoid delusional beliefs. His history is significant for substance abuse. He has been abstinent with the exception of marijuana. He has had past diagnoses of major depressive disorder with psychotic features. I suspect that his presentation is related to a primary psychotic disorder rather than a mood disorder because the paranoia and paranoid delusional beliefs are the predominant symptom. He should be treated inpatient basis with a combination of psychopharmacology and multimodal therapy. PRINCIPLE DIAGNOSIS: Delusional disorder paranoid type, rule out schizophrenia, rule out schizoaffective disorder, rule out major depressive disorder with psychotic features, rule out substance (cannabis) induced psychotic disorder RECOMMENDATION: Admitted to the psychiatric unit. Safety precautions. Consult medicine for initial physical exam and medical history. [employer] farm[employer] to complete initial psychosocial assessment and coordinate discharge and aftercare services. Begin Abilify 15 mg daily. Encourage participation in therapeutic groups and activities. Evaluate clinical status response to treatment daily basis. Allergies Allergy/AdvReac Type Severity Reaction Status Date / Time bupropion HCl Allergy Rash/Hives Verified 07/16/19 19:57 [From Wellbutrin] nitrofurantoin Allergy Unknown Verified 07/16/19 19:57 [From Macrobid] Sulfa (Sulfonamide Allergy Rash/Hives Verified 07/16/19 19:57 Antibiotics) Vital Signs Temp 98.3 F 07/17/19 00:09 Pulse 89 07/17/19 00:09 Resp 18 07/17/19 00:09 BP 132/90 07/17/19 00:09 Pulse Ox 95 07/16/19 23:12 Intake & Output 07/16/19 07/17/19 07/17/19 18:59 06:59 18:59 Weight 106.594 kg Laboratory Last Values Urine Opiates Screen Not Detected (NotDetected) 07/16/19 21:30 Ur Oxycodone Screen Not Detected (NotDetected) 07/16/19 21:30 Urine Methadone Screen Not Detected (NotDetected) 07/16/19 21:30 Ur Propoxyphene Screen Not Detected (NotDetected) 07/16/19 21:30 Ur Barbiturates Screen Not Detected (NotDetected) 07/16/19 21:30 U Tricyclic Antidepress Not Detected (NotDetected) 07/16/19 21:30 Ur Phencyclidine Scrn Not Detected (NotDetected) 07/16/19 21:30 Ur Amphetamines Screen Not Detected (NotDetected) 07/16/19 21:30 U Methamphetamines Scrn Not Detected (NotDetected) 07/16/19 21:30 U Benzodiazepines Scrn Not Detected (NotDetected) 07/16/19 21:30 Urine Cocaine Screen Not Detected (NotDetected) 07/16/19 21:30 U Marijuana (THC) Screen Detected (NotDetected) H 07/16/19 21:30 07/17/19 08:52 07/17/19 14:19
[2019-07-17] MEDS: NICOTINE POLACRILEX 2 MG GUM BUCCAL PRN ×2 (18:28→22:45)
--- NOTE | 2019-07-17 20:06 | P.CONS ---
History of Present Illness - Reason for Consult Consult date: 07/17/19 Medical management Requesting physician: Tony Arthur - Chief Complaint Delusions - History of Present Illness Consultation: This is a 33-year-old patient who follows with Dr. Salgado. Lives with a roommate and is on SSI. Smokes a pack a day. As of 2 or 3 joints marijuana joints daily. Alcohol rarely. Patient presents to the ER. What he described to the ER that for last 4 months he began experiencing delusions. He feels every personally feels that out to get him and want to harm him. He comes in with hospice is in his head about what age prognosis is doing and thinking about 11. She sometimes also feels like having them. He is occasionally had suicidal ideations. Has decreased appetite. Bowel movements are fine. No fever no chills. Slight brown phlegm. Some reflux symptoms. Sleeping okay. Review of systems: GEN.: Tired EYES: None HEENT: None NECK: None RESPIRATORY: As above CARDIOVASCULAR: None GASTROINTESTINAL: Heartburn GENITOURINARY: None MUSCULOSKELETAL: None LYMPHATICS: None HEMATOLOGICAL: None PSYCHIATRY: As above NEUROLOGICAL: None Past medical history to include: Seizure disorder, scabies, bipolar disorder goes to [facility], history of overdose and was intubated at [facility] Social history: Lives with a roommate. Operations SSI. Smokes a pack a day of cigarettes. Alcohol occasionally. Does marijuana up to 3 joints a day. Physical examination: VITAL SIGNS: 98.4, 91, 15, 132/91, 95% on room air GENERAL: BMI 32.8, sitting upon a chair, depressed appearing,. EYES: Pupils equal. Conjunctiva normal. HEENT: External appearance of nose and ears normal, oral cavity grossly normal. NECK: JVD not raised; masses not palpable. HEART: First and second heart sounds are normal; no edema. LUNGS: Respiratory rate normal; clear to auscultation. ABDOMEN: Soft, nontender, liver spleen not palpable, no masses palpable. PSYCH: [Alert and oriented x3; mood and affect low l. NEUROLOGICAL: Cranial nerves grossly intact; no facial asymmetry, power and sensation grossly intact. LYMPHATICS: No lymph nodes palpable in the axilla and neck INVESTIGATIONS, reviewed in the clinical context: White count 5.7 hemoglobin 17 platelets 224 potassium 4 creatinine 0.79 AST 63 ALT 67 TSH 0.708 triglycerides 432 total cholesterol 168 Assessment: -Chronic nicotine dependence patient's cigarette -Obesity BMI 32.8 -Hepatitis type unknown-with mild elevation of LFTs. To be followed by PCP upon discharge -Hypertriglyceridemia -Recreational marijuana use -Psychiatric disorder being worked up by Dr. Arthur -GERD Plan: Patient be given a nicotine patch. Home medications to be resumed to include propranolol, Prilosec. Patient advised against use of marijuana. Thank you Dr. Arthur Past Medical History Past Medical History: COPD, Seizure Disorder Additional Past Medical History / Comment(s): COPD, scabies, History of Any Multi-Drug Resistant Organisms: None Reported Past Surgical History: Ear Surgery Additional Past Surgical History / Comment(s): ear tubes Past Anesthesia/Blood Transfusion Reactions: No Reported Reaction Past Psychological History: Anxiety, Bipolar, Depression Smoking Status: Current every day smoker Past Alcohol Use History: Occasional Past Drug Use History: Marijuana - Past Family History Mother Family Medical History: Hypertension, Thyroid Disorder Father Family Medical History: COPD, Diabetes Mellitus, Hypertension Brother(s) Family Medical History: No Reported History Sister(s) Family Medical History: No Reported History Medications and Allergies Home Medications Medication Instructions Recorded Confirmed Type Propranolol HCl [Propranolol HCl 60 mg PO DAILY 02/06/19 05/26/19 History ER] valACYclovir HCL [Valtrex] 1,000 mg PO DAILY 02/06/19 05/26/19 History Cholecalciferol (Vitamin D3) 50 mcg PO DAILY 05/26/19 05/26/19 History [Vitamin D3] Ibuprofen [Motrin] 800 mg PO TID PRN 05/26/19 05/26/19 History Omeprazole [PriLOSEC] 40 mg PO DAILY 05/26/19 05/26/19 History hydrOXYzine PAMOATE [Vistaril] 25 mg PO TID PRN 05/26/19 05/26/19 History Allergies Allergy/AdvReac Type Severity Reaction Status Date / Time bupropion HCl Allergy Rash/Hives Verified 07/16/19 19:57 [From Wellbutrin] nitrofurantoin Allergy Unknown Verified 07/16/19 19:57 [From Macrobid] Sulfa (Sulfonamide Allergy Rash/Hives Verified 07/16/19 19:57 Antibiotics) Physical Exam Vitals: Vital Signs Temp Pulse Pulse Resp BP BP Pulse Ox 07/17/19 00:09 98.3 F 89 18 132/90 07/16/19 23:12 98.8 F 91 15 132/91 95 07/16/19 19:54 98.4 F 106 H 18 145/93 99 Intake and Output 07/16/19 07/17/19 07/17/19 22:59 06:59 14:59 Other: Weight 108.862 kg 106.594 kg Results CBC & Chem 7: 07/17/19 08:21 07/17/19 08:21 Labs: Abnormal Lab Results - Last 24 Hours (Table) 07/16/19 07/17/19 Range/Units 21:30 08:21 Glucose 101 H (74-99) mg/dL AST 63 H (17-59) U/L ALT 67 H (4-49) U/L Triglycerides 432 H (<150) mg/dL HDL Cholesterol 23 L (40-60) mg/dL U Marijuana (THC) Screen Detected H (NotDetected)
[2019-07-17] MEDS: ZIPRASIDONE 20 MG VIAL IM PRN (21:43)
[2019-07-18] MEDS: ARIPiprazole 15 MG TAB PO SCH (08:17)
[2019-07-18] MEDS: LORazepam 1 MG TAB PO PRN ×2 (08:18→16:37)
[2019-07-18] MEDS: valACYclovir HCL 1,000 MG TABLET PO SCH (08:18)
[2019-07-18] MEDS: PROPRANOLOL LA 60 MG CAP.SA.24H PO SCH (08:18)
[2019-07-18] MEDS: PANTOPRAZOLE 40 MG TABLET PO SCH (08:18)
--- NOTE | 2019-07-18 11:58 | P.PN ---
Progress Note - Text Progress Note Date: 07/18/19 Interval history: Patient is seen in cross coverage today. He has a one-to-one monitoring in place. Per nursing note the patient was agitated and verbally threatening towards a peer last evening. Patient states that he woke up angry this morning but currently the anger is doing better. Per staff he did receive a dose of Ativan today. He does report that he feels is eating enough, but appetite seems to be low. Mental status exam: He is seen in his room. His speech is fluent, not rapid or pressured. Thought processes organized. His mood he seems to relay its difficult to describe, he appears depressed. His affect is restricted. He denies any current thoughts of harm to self or others. He does not display any current agitation. He does not verbalize any alexandre delusions or hallucinations. Plan: She'll be maintained on current psychotropic medication regimen. Continue to monitor for any medication side effects and monitor his ongoing response to treatment. At this time we'll maintain one-to-one precautions and continue to monitor his status.
[2019-07-18] MEDS: NICOTINE POLACRILEX 2 MG GUM BUCCAL PRN ×2 (15:04→21:37)
[2019-07-18] MEDS: ZIPRASIDONE 20 MG VIAL IM PRN ×2 (15:47→22:35)
[2019-07-18] MEDS: ACETAMINOPHEN TAB 325 MG TAB PO PRN (16:37)
[2019-07-19] MEDS: PANTOPRAZOLE 40 MG TABLET PO SCH (08:24)
[2019-07-19] MEDS: LORazepam 1 MG TAB PO PRN ×3 (08:24→22:27)
[2019-07-19] MEDS: valACYclovir HCL 1,000 MG TABLET PO SCH (08:24)
[2019-07-19] MEDS: PROPRANOLOL LA 60 MG CAP.SA.24H PO SCH (08:24)
[2019-07-19] MEDS: ACETAMINOPHEN TAB 325 MG TAB PO PRN (08:24)
[2019-07-19] MEDS: ARIPiprazole 15 MG TAB PO SCH (08:24)
[2019-07-19] MEDS: NICOTINE POLACRILEX 2 MG GUM BUCCAL PRN ×4 (08:24→21:12)
--- NOTE | 2019-07-19 16:28 | P.PN ---
Progress Note - Text Progress Note Date: 07/19/19 Interval history: Patient presents with improved status today. He does not voice any adverse psychotropic medication side effects. He did receive a when necessary earlier today, relays that he went to staff and this did help him. He reports he feels less paranoid today and denies any thoughts of harm to self or others. Mental status exam: He is found in his room lying in bed. He is alert and cooperative. He does not display any agitation. His mood overall is improved. He denies any thoughts of harm to self or others. He reports he feels safe on the unit. No obvious evidence of psychosis. He states he feels less paranoid today and describes paranoid as concerns as when he is going to be out of the hospital. Plan: We'll DC one-to-one precautions at this point in time and place on SP 15 minute precautions. Continue current psychotropic medication regimen and continue to monitor regarding any medication side effects. Continue to monitor his ongoing response to treatment.
[2019-07-20] MEDS: valACYclovir HCL 1,000 MG TABLET PO SCH (08:16)
[2019-07-20] MEDS: LORazepam 1 MG TAB PO PRN ×2 (08:16→18:46)
[2019-07-20] MEDS: PROPRANOLOL LA 60 MG CAP.SA.24H PO SCH (08:16)
[2019-07-20] MEDS: ARIPiprazole 15 MG TAB PO SCH (08:16)
[2019-07-20] MEDS: NICOTINE POLACRILEX 2 MG GUM BUCCAL PRN ×3 (08:16→18:46)
[2019-07-20] MEDS: PANTOPRAZOLE 40 MG TABLET PO SCH (08:16)
--- NOTE | 2019-07-20 15:04 | P.PN ---
Progress Note - Text Progress Note Date: 07/20/19 Clinical Problems: Delusional disorder paranoid type, rule out schizophrenia, rule out schizoaffective disorder, rule out major depressive disorder with psychotic features, rule out substance (cannabis) induced psychotic disorder, cocaine, benzodiazepine and opiate use disorder in early remission. Interim history: Reviewed the medical record, interviewed the patient and discuss his treatment and treatment plan during team meeting. He alleged that he overheard another patient talk on the telephone about him. He believes that this patient was talking to the "drug dealers" that were watching and following him in the community. During our interview he revealed that he does not plan to return to his apartment because of the concerns described in his admission history. Instead, he plans to "live in a tent in the [facility]" where he can "move around" when "they" begin watching him. He requested a prescription for Suboxone. He stated that he been prescribed in the past and felt "much better". He talked about his history of drug use and apparently benzodiazepines and cocaine are his drugs of choice although he is using drugs including oral opiate pain medications as well as heroin. When I explained that we did not have Suboxone he requested to be prescribed methadone. Later in the morning he stated that he spoke to a "[place] doctor" on the telephone who was willing to prescribe Suboxone. If he provides a prescription then will we provide him with the medication. He denied side effects to Abilify. Mental status exam: He presented as a casually groomed 33-year-old male who was pleasant on approach. He made eye contact and appeared to attend to the interview. He had a flat facial expression. He had psychomotor retardation but no abnormal involuntary movements. His speech was spontaneous with decreased rate, rhythm and volume. His affect was blunted. He denied current suicidal ideation or wishes. He did not express feelings of hopelessness, helplessness or worthlessness. He described ideas reference, paranoid ideation and maintains a chronic paranoid delusional beliefs. His thinking was concrete. Associations were coherent and logical. He denied hallucinations didn't appear to responding to internal stimuli. Assessment: He is less guarded and suspicious than on admission but continues to maintain the chronic delusional beliefs and described clear ideas of reference. His substance abuse problems become more apparent. Plan: Continue inpatient treatment. Continue safety precautions. Continue Abilify 15 mg daily and titrated according to clinical response and tolerance. Encourage continued participation in therapeutic groups and activities. Evaluate clinical status response to treatment daily basis.
[2019-07-21] MEDS: NICOTINE POLACRILEX 2 MG GUM BUCCAL PRN ×4 (03:12→20:14)
[2019-07-21] MEDS: LORazepam 1 MG TAB PO PRN ×2 (03:12→22:17)
[2019-07-21] MEDS: ARIPiprazole 15 MG TAB PO SCH (08:32)
[2019-07-21] MEDS: PROPRANOLOL LA 60 MG CAP.SA.24H PO SCH (08:32)
[2019-07-21] MEDS: valACYclovir HCL 1,000 MG TABLET PO SCH (08:32)
[2019-07-21] MEDS: PANTOPRAZOLE 40 MG TABLET PO SCH (08:32)
--- NOTE | 2019-07-21 12:04 | P.PN ---
Progress Note - Text Interval history: The patient is found in the hallway he follows me to an interview room. The patient is well known to this inpatient psychiatric service he has had multiple admissions. The patient states he was admitted due to acute symptoms of paranoia. He describes a few examples. I was informed by staff that he demonstrated some verbal aggressiveness over the weekend he was on a security one to one which was discontinued on Saturday. He was not physically violent with staff. He indicates he is satisfied with the Abilify at its current dose. He states that his paranoia symptoms are reducing. Appetite stable he is sleeping at night he reports however staff report he slept 4 hours. He is not attending groups and that is typical for him on the mental health unit. Mental status exam: The patient is alert he is a male appearing his stated age is dressed in his own clothing hygiene is adequate he's mildly dish eveled. Eye contact is appropriate speech is fluent spontaneous nonpressured he maintains a bland affect. He is reporting no suicidal or homicidal thoughts at this time he reports feelings of paranoia but they seem to be improving per his report. He demonstrates no tangential thinking loose associations or flight of ideas he demonstrates no verbal or physical aggressiveness. He demonstrates no involuntary paranoid movements. Insight and judgment limited but appears to be improving. Plan: The patient will continue on the medication as written. We discussed possibly titrating the dose but he states historically 1 and has gone higher he has had feelings of akathisia. We will monitor him for safety vital signs reviewed. We will continue to evaluate his acute safety risk and need for f urther hospitalization.
[2019-07-22] MEDS: NICOTINE POLACRILEX 2 MG GUM BUCCAL PRN ×2 (06:14→10:40)
[2019-07-22 07:08] VITALS: RESP 16
[2019-07-22] MEDS: ARIPiprazole 15 MG TAB PO SCH (08:22)
[2019-07-22] MEDS: valACYclovir HCL 1,000 MG TABLET PO SCH (08:23)
[2019-07-22] MEDS: PROPRANOLOL LA 60 MG CAP.SA.24H PO SCH (08:23)
[2019-07-22] MEDS: PANTOPRAZOLE 40 MG TABLET PO SCH (08:23)
[2019-07-22 09:21] VITALS: BP 142/88; PULSE 79
--- NOTE | 2019-07-22 11:36 | P.DS ---
Providers Date of admission: 07/16/19 23:11 Expected date of discharge: 07/22/19 Attending physician: Tony Arthur MD Consults: 07/16/19 23:47 Consult Physician Routine Consulting Provider: Jeremiah Martinez Consult Reason/Comments: H&P and medical Do you want consulting provider notified?: Yes Primary care physician: Trent Salgado - Discharge Diagnosis(es) (1) Psychosis Current Visit: Yes Status: Acute Priority: High (2) Major depressive disorder in remission Current Visit: Yes Status: Acute Priority: Low (3) Cannabis use disorder, moderate, dependence Current Visit: Yes Status: Acute Priority: Medium (4) Alcohol use disorder, severe, in sustained remission Current Visit: Yes Status: Acute Priority: Low (5) Cocaine use disorder, severe, in sustained remission Current Visit: Yes Status: Acute Priority: Low (6) Opioid use disorder, severe, in sustained remission Current Visit: Yes Status: Acute Priority: Low Hospital Course: This patient is a 33-year-old single male who was admitted to the psychiatric unit for acute symptoms of paranoia. He also describes suicidal ideation at the time of admission with a plan to hang himself. He reported that he saw somebody outside of his apartment with a cell phone reporting him. He reports that drug dealers were watching him. He states that there were cameras hidden in his apartment and believes his landlord could be watching him. For full detail please refer to the psychiatric evaluation completed by Dr. Arthur on 07/17/2019. Summary of hospital course: The patient was admitted to the mental health unit voluntarily. He was initially evaluated by Dr. Arthur and was started on Abilify which was titrated to 15 mg daily. I assumed care of the patient starting yesterday. The patient is well known to me from numerous prior admissions. The patient has a history of major depressive disorder without psychosis and a significant history of substance use which often confounded his presentations. He does continue to use marijuana which may have been involved in the onset of his psychosis. He indicates he has been abstaining from alcohol cocaine opioids. The patient had one episode of agitation late last week area he was placed on a one-to-one supervision which was discontinued on Saturday. He has demonstrated appropriate behavior Saturday and today. He has not been attending groups but that is typical for him on the mental health unit. He was seen by internal medicine for routine history and physical exam social services met with the patient to complete a psychosocial assessment and for discharge planning purposes. The patient reports a progressive improvement of symptoms while here. He states that his paranoid thinking has improved by at least 80% and he feels that it's no longer causing any dysfunction. He has been in contact with his family. He plans to continue residing with his girlfriend in his own apartment in [place]. Mental status exam: The patient is alert he appears his stated age he is dressed in his own clothing hygiene grooming adequate. Eye contact is appropriate speech is fluent and spontaneous nonpressured. He maintains a constricted affect. He reports that his mood is better. He reports no hopelessness thinking he reports no suicidal ideation intent or plan. He states he is not having any other self-injurious thoughts such as cutting. He is reporting no auditory or visual hallucinations specifically he denies experiencing any command auditory hallucinations. There is no objective evidence of psychosis at this time. He states paranoid thinking has reduced considerably and he feels he is able to maintain appropriate function. He demonstrates no tangential thinking loose associations or flight of ideas. He does not appear hypomanic or manic. He demonstrates no verbal or physical aggressiveness. He is demonstrating no involuntary repetitive movements. Insight and judgment have improved. He is oriented to person place and date. Impressions 1. Psychosis unspecified, rule out cannabis-induced psychosis, major depressive disorder recurrent in remission, cannabis use disorder moderate, opioid use disorder severe in sustained remission, alcohol use disorder severe in sustained remission, cocaine use disorder severe in sustained remission Plan: The patient will be discharged mental health unit today he will return residing with his girlfriend in their apartment in [place]. He continues to have outpatient treatment arranged at [facility] to be mental health. The patient will continue on Abilify 15 mg daily. He is instructed to abstain from any use of marijuana alcohol or any illicit drugs as he substances can induce psychiatric symptoms. At this time there is no imminent safety risk he is sufficiently stabilized and is appropriate for transition back to outpatient care. He is instructed to return to the hospital with any acute safety concerns. Patient Condition at Discharge: Stable Plan - Discharge Summary New Discharge Prescriptions: New ARIPiprazole [Abilify] 15 mg PO DAILY #30 tab Nicotine Polacrilex [Nicorette] 2 mg BUCCAL Q4HR PRN #60 gum PRN Reason: Nicotine Cravings Continue valACYclovir HCL [Valtrex] 1,000 mg PO DAILY Omeprazole [PriLOSEC] 40 mg PO DAILY Propranolol HCl [Propranolol HCl ER] 60 mg PO DAILY #30 cap Discontinued Cholecalciferol (Vitamin D3) [Vitamin D3] 50 mcg PO DAILY hydrOXYzine PAMOATE [Vistaril] 25 mg PO TID PRN PRN Reason: Anxiety Ibuprofen [Motrin] 800 mg PO TID PRN PRN Reason: Pain Discharge Medication List valACYclovir HCL [Valtrex] 1,000 mg PO DAILY 02/06/19 [History] Omeprazole [PriLOSEC] 40 mg PO DAILY 05/26/19 [History] ARIPiprazole [Abilify] 15 mg PO DAILY #30 tab 07/22/19 [Rx] Nicotine Polacrilex [Nicorette] 2 mg BUCCAL Q4HR PRN #60 gum 07/22/19 [Rx] Propranolol HCl [Propranolol HCl ER] 60 mg PO DAILY #30 cap 07/22/19 [Rx] Follow up Appointment(s)/Referral(s): [facility] [Outside] - 07/22/19 2:00 pm (07-22-19 @ 2:00 with Tawnya Bernstein by phone. 08-07-19 @ 8:[address] Suazo at the [facility] office via Video phone.) Trent Salgado DO [Primary Care Provider] - 1-2 days Activity/Diet/Wound Care/Special Instructions: Activity and diet as tolerated. Avoid the use of street drugs and alcohol. Take all medications as prescribed. When you are in need of refills on your medications please contact your medical provider and/or outpatient psychiatrist to have this done. Please go to scheduled outpatient appointment for aftercare treatment. If symptoms return or become worse, call the crisis line at and/or go to the nearest emergency room for evaluation
[2019-07-22 13:21] VITALS: TEMP 97.6
== END 2019-07-22 13:25 | disposition home or self-care (01) | DRG 885 ==
LOC: EC 19:48 → 3MHU 23:11
PROVIDERS: ADMIT Psychiatry & Neurology Psychiatry; ATTEND Psychiatry & Neurology Psychiatry
DX: F29 Unspecified psychosis not due to a substance or known physiological condition (principal); R45.851 Suicidal ideations; R45.850 Homicidal ideations; F33.42 Major depressive disorder, recurrent, in full remission; G40.909 Epilepsy, unspecified, not intractable, without status epilepticus; F12.20 Cannabis dependence, uncomplicated; F10.21 Alcohol dependence, in remission; F14.21 Cocaine dependence, in remission; F11.21 Opioid dependence, in remission; F18.10 Inhalant abuse, uncomplicated; J44.9 Chronic obstructive pulmonary disease, unspecified; F60.3 Borderline personality disorder; E78.1 Pure hyperglyceridemia; K21.9 Gastro-esophageal reflux disease without esophagitis; F41.9 Anxiety disorder, unspecified; F17.210 Nicotine dependence, cigarettes, uncomplicated; E66.9 Obesity, unspecified; Z68.32 Body mass index [BMI] 32.0-32.9, adult; Z79.899 Other long term (current) drug therapy; Z86.19 Personal history of other infectious and parasitic diseases; Z98.890 Other specified postprocedural states; Z88.2 Allergy status to sulfonamides; Z88.8 Allergy status to other drugs, medicaments and biological substances; Z82.49 Family history of ischemic heart disease and other diseases of the circulatory system; Z82.5 Family history of asthma and other chronic lower respiratory diseases; Z83.49 Family history of other endocrine, nutritional and metabolic diseases; Z83.3 Family history of diabetes mellitus
CPT/HCPCS: 80053; 80061; 80306; 83036; 84443; 85025; 99285

== ENCOUNTER 2019-11-12 21:05 | Emergency (ER) | payer MEDICARE, OTHER ==
[2019-11-12 21:09] VITALS: TEMP 98.8
[2019-11-12] MEDS ORDERED: KETOROLAC 15 MG/ML 1 ML VIAL IVP STA (21:43)
[2019-11-12] MEDS ORDERED: SODIUM CHLORIDE 0.9% 1,000 ML IV STA (21:43)
--- NOTE | 2019-11-12 22:11 | ED ---
Abdominal Pain HPI - General Chief Complaint: Abdominal Pain Stated Complaint: ABD pain Time Seen by Provider: 11/12/19 21:14 Source: patient Mode of arrival: ambulatory Limitations: no limitations - History of Present Illness Initial Comments: Patient is a 34-year-old male presenting to the emergency Department with complaints of lower abdominal pain that has been intermittent for the last month. Patient states last few days it has been much worse. He states the pain is mostly in his lower abdomen but does move around to his upper abdomen and leonard etimes. Patient denies any nausea, vomiting, fever, chills. Does admit to occasional diarrhea. States he had a normal bowel movement yesterday. He denies any urinary complaints. He states he occasionally drinks alcohol, smokes marijuana. He does admit to taking Suboxone but he's been trying to wean himself off. He denies any abdominal surgeries. He has no further complaints at this time. Upon arrival to the ER, patient slightly tachy, rest of vitals are normal. - Related Data Home Medications Medication Instructions Recorded Confirmed Buprenorphine HCl/Naloxone HCl 1 tab SUBLINGUAL DAILY 11/12/19 11/12/19 [Zubsolv 1.4-0.36 mg Tablet Sl] Ibuprofen [Motrin] 800 mg PO ONCE PRN 11/12/19 11/12/19 Melatonin 5 mg PO HS 11/12/19 11/12/19 Previous Rx's Medication Instructions Recorded ARIPiprazole [Abilify] 15 mg PO DAILY #30 tab 07/22/19 Allergies Allergy/AdvReac Type Severity Reaction Status Date / Time bupropion HCl Allergy Rash/Hives Verified 11/12/19 21:53 [From Wellbutrin] nitrofurantoin Allergy Unknown Verified 11/12/19 21:53 [From Macrobid] Sulfa (Sulfonamide Allergy Rash/Hives Verified 11/12/19 21:53 Antibiotics) Review of Systems ROS Statement: Those systems with pertinent positive or pertinent negative responses have been documented in the HPI. ROS Other: All systems not noted in ROS Statement are negative. Past Medical History Past Medical History: COPD, Seizure Disorder Additional Past Medical History / Comment(s): COPD, scabies, History of Any Multi-Drug Resistant Organisms: None Reported Past Surgical History: Ear Surgery Additional Past Surgical History / Comment(s): ear tubes Past Anesthesia/Blood Transfusion Reactions: No Reported Reaction Past Psychological History: Anxiety, Bipolar, Depression Smoking Status: Current every day smoker, Vaper Past Alcohol Use History: Occasional Past Drug Use History: Marijuana - Past Family History Mother Family Medical History: Hypertension, Thyroid Disorder Father Family Medical History: COPD, Diabetes Mellitus, Hypertension Brother(s) Family Medical History: No Reported History Sister(s) Family Medical History: No Reported History General Exam - General Exam Comments Initial Comments: GENERAL: Patient is well-developed and well-nourished. Patient is nontoxic and in no acute distress. HEAD: Atraumatic, normocephalic. EYES: Pupils equal round and reactive to light, extraocular movements intact, sclera anicteric, conjunctiva are normal. Eyelids were unremarkable. ENT: TMs normal, nares patent, oropharynx clear without exudates. Moist mucous membranes. NECK: Normal range of motion, supple without lymphadenopathy or JVD. LUNGS: Unlabored respirations. Breath sounds clear to auscultation bilaterally and equal. No wheezes rales or rhonchi. HEART: Regular rate and rhythm without murmurs, rubs or gallops. ABDOMEN: Diffuse tenderness with palpation of the abdomen, no specific area pain. Soft, normoactive bowel sounds. No guarding, no rebound. No masses appreciated. : Deferred MUSCULOSKELETAL: Normal extremities with adequate strength and normal range of motion, no pitting or edema. No clubbing or cyanosis. NEUROLOGICAL: Patient is alert and oriented x 3. Motor and sensory are also intact. Normal speech, normal gait. PSYCH: Normal mood, normal affect. SKIN: Warm, Dry, normal turgor, no rashes or lesions noted. Limitations: no limitations Course Vital Signs 11/12/19 11/12/19 21:07 23:18 Temperature 98.8 F Pulse Rate 111 H 99 Respiratory 20 18 Rate Blood Pressure 140/95 136/88 O2 Sat by Pulse 99 99 Oximetry Medical Decision Making - Medical Decision Making Patient is a 34-year-old male here for intermittent abdominal pain 1 month, increase the last few days. Vital signs are stable, afebrile. Labs are unremarkable, normal white count, normal lactic acid, lipase is 80. Urine is normal. Did do a CT the abdomen showed no acute abnormalities. Patient was given some fluids and Toradol and reports improvement of symptoms. I discussed with patient this could be related to irritable bowel, gas, stress related. Did recommend following up with a GI specialist. He is in agreement with this plan of care. He is stable for discharge. Return parameters were discussed with the patient he verbalizes understanding. - Lab Data Result diagrams: 11/12/19 21:59 11/12/19 21:59 Lab Results 11/12/19 11/12/19 11/12/19 Range/Units 21:59 21:59 21:59 WBC 10.2 (3.8-10.6) k/uL RBC 5.53 (4.30-5.90) m/uL Hgb 16.4 (13.0-17.5) gm/dL Hct 48.4 (39.0-53.0) % MCV 87.5 (80.0-100.0) fL MCH 29.7 (25.0-35.0) pg MCHC 33.9 (31.0-37.0) g/dL RDW 12.5 (11.5-15.5) % Plt Count 226 (150-450) k/uL Neutrophils % 70 % Lymphocytes % 21 % Monocytes % 5 % Eosinophils % 2 % Basophils % 1 % Neutrophils # 7.1 (1.3-7.7) k/uL Lymphocytes # 2.2 (1.0-4.8) k/uL Monocytes # 0.5 (0-1.0) k/uL Eosinophils # 0.2 (0-0.7) k/uL Basophils # 0.1 (0-0.2) k/uL Sodium 138 (137-145) mmol/L Potassium 3.8 (3.5-5.1) mmol/L Chloride 103 (98-107) mmol/L Carbon Dioxide 25 (22-30) mmol/L Anion Gap 10 mmol/L BUN 26 H (9-20) mg/dL Creatinine 1.13 (0.66-1.25) mg/dL Est GFR (CKD-EPI)AfAm >90 (>60 ml/min/1.73 sqM) Est GFR (CKD-EPI)NonAf 85 (>60 ml/min/1.73 sqM) Glucose 118 H (74-99) mg/dL Plasma Lactic Acid Luis Eduardo (0.7-2.0) mmol/L Calcium 9.5 (8.4-10.2) mg/dL Total Bilirubin 0.9 (0.2-1.3) mg/dL AST 35 (17-59) U/L ALT 31 (4-49) U/L Alkaline Phosphatase 84 (38-126) U/L Total Protein 7.5 (6.3-8.2) g/dL Albumin 4.7 (3.5-5.0) g/dL Amylase 57 (30-110) U/L Lipase 80 (23-300) U/L Urine Color Yellow Urine Appearance Clear (Clear) Urine pH 5.5 (5.0-8.0) Ur Specific [place] 1.024 (1.001-1.035) Urine Protein Negative (Negative) Urine Glucose (UA) Negative (Negative) Urine Ketones Negative (Negative) Urine Blood Negative (Negative) Urine Nitrite Negative (Negative) Urine Bilirubin Negative (Negative) Urine Urobilinogen <2.0 (<2.0) mg/dL Ur Leukocyte Esterase Negative (Negative) Urine Opiates Screen (NotDetected) Ur Oxycodone Screen (NotDetected) Urine Methadone Screen (NotDetected) Ur Propoxyphene Screen (NotDetected) Ur Barbiturates Screen (NotDetected) U Tricyclic Antidepress (NotDetected) Ur Phencyclidine Scrn (NotDetected) Ur Amphetamines Screen (NotDetected) U Methamphetamines Scrn (NotDetected) U Benzodiazepines Scrn (NotDetected) Urine Cocaine Screen (NotDetected) U Marijuana (THC) Screen (NotDetected) Serum Alcohol <10 mg/dL 11/12/19 11/12/19 Range/Units 21:59 21:59 WBC (3.8-10.6) k/uL RBC (4.30-5.90) m/uL Hgb (13.0-17.5) gm/dL Hct (39.0-53.0) % MCV (80.0-100.0) fL MCH (25.0-35.0) pg MCHC (31.0-37.0) g/dL RDW (11.5-15.5) % Plt Count (150-450) k/uL Neutrophils % % Lymphocytes % % Monocytes % % Eosinophils % % Basophils % % Neutrophils # (1.3-7.7) k/uL Lymphocytes # (1.0-4.8) k/uL Monocytes # (0-1.0) k/uL Eosinophils # (0-0.7) k/uL Basophils # (0-0.2) k/uL Sodium (137-145) mmol/L Potassium (3.5-5.1) mmol/L Chloride (98-107) mmol/L Carbon Dioxide (22-30) mmol/L Anion Gap mmol/L BUN (9-20) mg/dL Creatinine (0.66-1.25) mg/dL Est GFR (CKD-EPI)AfAm (>60 ml/min/1.73 sqM) Est GFR (CKD-EPI)NonAf (>60 ml/min/1.73 sqM) Glucose (74-99) mg/dL Plasma Lactic Acid Luis Eduardo 1.5 (0.7-2.0) mmol/L Calcium (8.4-10.2) mg/dL Total Bilirubin (0.2-1.3) mg/dL AST (17-59) U/L ALT (4-49) U/L Alkaline Phosphatase (38-126) U/L Total Protein (6.3-8.2) g/dL Albumin (3.5-5.0) g/dL Amylase (30-110) U/L Lipase (23-300) U/L Urine Color Urine Appearance (Clear) Urine pH (5.0-8.0) Ur Specific [place] (1.001-1.035) Urine Protein (Negative) Urine Glucose (UA) (Negative) Urine Ketones (Negative) Urine Blood (Negative) Urine Nitrite (Negative) Urine Bilirubin (Negative) Urine Urobilinogen (<2.0) mg/dL Ur Leukocyte Esterase (Negative) Urine Opiates Screen Not Detected (NotDetected) Ur Oxycodone Screen Not Detected (NotDetected) Urine Methadone Screen Not Detected (NotDetected) Ur Propoxyphene Screen Not Detected (NotDetected) Ur Barbiturates Screen Not Detected (NotDetected) U Tricyclic Antidepress Not Detected (NotDetected) Ur Phencyclidine Scrn Not Detected (NotDetected) Ur Amphetamines Screen Not Detected (NotDetected) U Methamphetamines Scrn Not Detected (NotDetected) U Benzodiazepines Scrn Not Detected (NotDetected) Urine Cocaine Screen Not Detected (NotDetected) U Marijuana (THC) Screen Detected H (NotDetected) Serum Alcohol mg/dL Disposition Clinical Impression: Abdominal pain Disposition: HOME SELF-CARE Condition: Stable Instructions (If sedation given, give patient instructions): Abdominal Pain (ED) Additional Instructions: Please return to the Emergency Department if symptoms worsen or any other concerns. Follow up with GI doctor as discussed if symptoms persist. Is patient prescribed a controlled substance at d/c from ED?: No Referrals: Trent Salgado DO [Primary Care Provider] - 1-2 days Mamadou Cortes MD [STAFF PHYSICIAN] - 1-2 days
[2019-11-12 22:14] LABS: Basophils # (A) 0.1 k/uL (0-0.2); Basophils % (A) 1 %; Eosinophils # (A) 0.2 k/uL (0-0.7); Eosinophils % (A) 2 %; HCT 48.4 % (39.0-53.0); HGB 16.4 gm/dL (13.0-17.5); Lymphocytes # (A) 2.2 k/uL (1.0-4.8); Lymphocytes % (A) 21 %; MCH 29.7 pg (25.0-35.0); MCHC 33.9 g/dL (31.0-37.0); MCV 87.5 fL (80.0-100.0); Mean Platelet Volume 7.9; Monocytes # (A) 0.5 k/uL (0-1.0); Monocytes % (A) 5 %; Neutrophils # (A) 7.1 k/uL (1.3-7.7); Neutrophils % (A) 70 %; Platelet Count 226 k/uL (150-450); RBC 5.53 m/uL (4.30-5.90); RDW 12.5 % (11.5-15.5); WBC 10.2 k/uL (3.8-10.6)
[2019-11-12 22:15] LABS: Appearance,Urine Clear (Clear); Bilirubin,Urine Negative (Negative); Blood,Urine Negative (Negative); Color,Urine Yellow; Glucose,Urine (UA) Negative (Negative); Ketones,Urine Negative (Negative); Leukocyte Esterase,Urine Negative (Negative); Nitrite,Urine Negative (Negative); PH, Urine 5.5 (5.0-8.0); Protein,Urine Negative (Negative); Specific Gravity,Urine 1.024 (1.001-1.035); Urobilinogen,Urine <2.0 mg/dL (<2.0)
[2019-11-12 22:23] LABS: ALT 31 U/L (4-49); AST 35 U/L (17-59); African American GFR (CKD) >90 (>60 ml/min/1.73 sqM); Albumin 4.7 g/dL (3.5-5.0); Alcohol <10 mg/dL; Alkaline Phosphatase 84 U/L (38-126); Amylase 57 U/L (30-110); Anion Gap 10 mmol/L; Blood Urea Nitrogen 26 mg/dL (9-20); Calcium 9.5 mg/dL (8.4-10.2); Carbon Dioxide 25 mmol/L (22-30); Chloride 103 mmol/L (98-107); Glucose 118 mg/dL (74-99); Lipase 80 U/L (23-300); Non-African American GFR(CKD) 85 (>60 ml/min/1.73 sqM); Potassium 3.8 mmol/L (3.5-5.1); Sodium 138 mmol/L (137-145); Total Bilirubin 0.9 mg/dL (0.2-1.3); Total Protein 7.5 g/dL (6.3-8.2)
[2019-11-12 22:24] LABS: Amphetamine Screen,Urine Not Detected (NotDetected); Barbiturate Screen,Urine Not Detected (NotDetected); Benzodiazepines Screen,Urine Not Detected (NotDetected); Cocaine Screen,Urine Not Detected (NotDetected); Methadone Screen, Urine Not Detected (NotDetected); Opiate Screen,Urine Not Detected (NotDetected); Oxycodone Screen, Urine Not Detected (NotDetected); Phencyclidine Screen,Urine Not Detected (NotDetected); Tricyclic Antidepressant,Urine Not Detected (NotDetected); Urn Cannabinoid Scrn Detected (NotDetected)
--- NOTE | 2019-11-12 22:48 | CT ---
EXAMINATION TYPE: CT abdomen pelvis w con DATE OF EXAM: 11/12/2019 COMPARISON: None HISTORY: Abdominal pain CT DLP: 1523.8 mGycm Automated exposure control for dose reduction was used. CONTRAST: Performed with IV Contrast, patient injected with 100 mL of Isovue 300. Lung bases are clear. There is no pleural effusion. Heart size is normal. Liver spleen pancreas gallbladder stomach appear normal. Bile ducts are not dilated. There is no adrenal mass. Kidneys show satisfactory contrast opacification. There is no hydronephrosi s. Delayed images show normal renal excretion. There is no retroperitoneal adenopathy. Ureters are no t dilated. Bladder distends smoothly. There is no inguinal hernia. There is no free fluid in the pelv is. Appendix is posterior and appears normal. There is no mesenteric edema. There is no ascites or free air. There is no evidence of a bowel obstru ction. Lumbar vertebra have normal alignment. The posterior elements are intact. Bony pelvis is intact. IMPRESSION: Negative CT scan abdomen and pelvis. Normal appendix.
[2019-11-12 23:20] VITALS: BP 136/88; PULSE 99; RESP 18
== END 2019-11-12 23:19 | disposition home or self-care (01) ==
LOC: EC 21:05
DX: R10.30 Lower abdominal pain, unspecified (principal); F17.290 Nicotine dependence, other tobacco product, uncomplicated; Z79.891 Long term (current) use of opiate analgesic; Z79.899 Other long term (current) drug therapy; Z88.8 Allergy status to other drugs, medicaments and biological substances; Z88.1 Allergy status to other antibiotic agents; Z88.2 Allergy status to sulfonamides
CPT/HCPCS: 36415; 80053; 82150; 83605; 83690; 85025; 81003; 80306; 74177; 99284; 96374; 96361; G0480; J1885; Q9967; 80320

== ENCOUNTER 2020-01-19 20:57 | Emergency (ER) | payer MEDICARE, OTHER ==
[2020-01-19 21:08] VITALS: RESP 18; TEMP 97.9
[2020-01-19 21:51] LABS: Appearance,Urine Clear (Clear); Bilirubin,Urine Negative (Negative); Blood,Urine Negative (Negative); Color,Urine Yellow; Glucose,Urine (UA) Negative (Negative); Ketones,Urine Negative (Negative); Leukocyte Esterase,Urine Negative (Negative); Nitrite,Urine Negative (Negative); PH, Urine 5.5 (5.0-8.0); Protein,Urine Negative (Negative); Urobilinogen,Urine <2.0 mg/dL (<2.0)
[2020-01-19 22:01] LABS: Amphetamine Screen,Urine Not Detected (NotDetected); Barbiturate Screen,Urine Not Detected (NotDetected); Benzodiazepines Screen,Urine Not Detected (NotDetected); Cocaine Screen,Urine Not Detected (NotDetected); Methadone Screen, Urine Not Detected (NotDetected); Opiate Screen,Urine Not Detected (NotDetected); Oxycodone Screen, Urine Not Detected (NotDetected); Phencyclidine Screen,Urine Not Detected (NotDetected); Tricyclic Antidepressant,Urine Not Detected (NotDetected); Urn Cannabinoid Scrn Detected (NotDetected)
--- NOTE | 2020-01-19 22:14 | ED ---
Psych HPI - General Chief Complaint: Psychiatric Symptoms Stated Complaint: Mental Health Time Seen by Provider: 01/19/20 21:12 Source: patient Mode of arrival: ambulatory - History of Present Illness Initial Comments: 34-year-old male with history of schizophrenia presenting today for chief complaint of voices in his head, suicidal ideation. Patient states he has been noncompliant with medications for 2 months he states this took his first tablet of Abilify today and he has not taken it in over 2 months. Patient states that he's been hearing voices and at times seeing things. He states he is not withdrawing from any medications or drugs. Patient states this happens from time to time. Patient denies headache chest pain shortness of breath vomiting nausea or abdominal pain or any other physical complaints denies homicidal ideation. Patient states he could no longer take the stress of life and the voices/thoughts of self harm and presented to the ER. Denies current suicidal ideations. Remainign ROS (-). - Related Data Home Medications Medication Instructions Recorded Confirmed hydrOXYzine pamoate [Vistaril] 100 mg PO ONCE 01/19/20 01/19/20 Previous Rx's Medication Instructions Recorded ARIPiprazole [Abilify] 15 mg PO DAILY #30 tab 07/22/19 Allergies Allergy/AdvReac Type Severity Reaction Status Date / Time bupropion HCl Allergy Rash/Hives Verified 01/19/20 21:49 [From Wellbutrin] nitrofurantoin Allergy Unknown Verified 01/19/20 21:49 [From Macrobid] Sulfa (Sulfonamide Allergy Rash/Hives Verified 01/19/20 21:49 Antibiotics) Review of Systems ROS Statement: Those systems with pertinent positive or pertinent negative responses have been documented in the HPI. ROS Other: All systems not noted in ROS Statement are negative. Past Medical History Past Medical History: COPD, Seizure Disorder Additional Past Medical History / Comment(s): COPD, scabies, History of Any Multi-Drug Resistant Organisms: None Reported Past Surgical History: Ear Surgery Additional Past Surgical History / Comment(s): ear tubes Past Anesthesia/Blood Transfusion Reactions: No Reported Reaction Past Psychological History: Anxiety, Bipolar, Depression Smoking Status: Current every day smoker, Vaper Past Alcohol Use History: Occasional Past Drug Use History: Marijuana - Past Family History Mother Family Medical History: Hypertension, Thyroid Disorder Father Family Medical History: COPD, Diabetes Mellitus, Hypertension Brother(s) Family Medical History: No Reported History Sister(s) Family Medical History: No Reported History General Exam - General Exam Comments Initial Comments: General: The patient is awake and alert, in no distress Eye: Pupils are equal, round and reactive to light, extra-ocular movements are intact. No nystagmus. There is normal conjunctiva bilaterally. No signs of icterus. Ears, nose, mouth and throat: There are moist mucous membranes and no oral lesions. Neck: The neck is supple, there is no tenderness or JVD. Cardiovascular: There is a regular rate and rhythm. No murmur, rub or gallop is appreciated. Respiratory: Lungs are clear to auscultation, respirations are non-labored, breath sounds are equal. No wheezes, stridor, rales, or rhonchi. Gastrointestinal: Soft, non-distended, non-tender abdomen without masses or organomegaly noted. There is no rebound or guarding present. Musculoskeletal: Normal ROM, no tenderness. Strength 5/5. Sensation intact. Radial pulses equal bilaterally 2+. Neurological: A&O x 3. CN II-XII intact grossly, There are no obvious motor or sensory deficits. Coordination appears grossly intact. Speech is normal. Skin: Skin is warm and dry and no rashes or lesions are noted. Psychiatric: Cooperative, flat affect Limitations: no limitations Course Vital Signs 01/19/20 01/19/20 21:06 23:11 Temperature 97.9 F 97.9 F Pulse Rate 108 H 101 H Respiratory 18 18 Rate Blood Pressure 146/78 138/74 O2 Sat by Pulse 98 98 Oximetry Medical Decision Making - Medical Decision Making Pt presents for fleeting suicidal ideations, denies current. admits to voices on occasion, noncompliance with medications but states he began again today Pt medically cleared for EPS. EPS nurse after speaking with psychiatry recommended discharge. safety plan in plan. pt discharged appearing well. - Lab Data Lab Results 01/19/20 Range/Units 21:40 Urine Color Yellow Urine Appearance Clear (Clear) Urine pH 5.5 (5.0-8.0) Ur Specific [place] 1.010 (1.001-1.035) Urine Protein Negative (Negative) Urine Glucose (UA) Negative (Negative) Urine Ketones Negative (Negative) Urine Blood Negative (Negative) Urine Nitrite Negative (Negative) Urine Bilirubin Negative (Negative) Urine Urobilinogen <2.0 (<2.0) mg/dL Ur Leukocyte Esterase Negative (Negative) Urine Opiates Screen Not Detected (NotDetected) Ur Oxycodone Screen Not Detected (NotDetected) Urine Methadone Screen Not Detected (NotDetected) Ur Propoxyphene Screen Not Detected (NotDetected) Ur Barbiturates Screen Not Detected (NotDetected) U Tricyclic Antidepress Not Detected (NotDetected) Ur Phencyclidine Scrn Not Detected (NotDetected) Ur Amphetamines Screen Not Detected (NotDetected) U Methamphetamines Scrn Not Detected (NotDetected) U Benzodiazepines Scrn Not Detected (NotDetected) Urine Cocaine Screen Not Detected (NotDetected) U Marijuana (THC) Screen Detected H (NotDetected) Disposition Clinical Impression: Depression, Noncompliance with medication regimen Disposition: HOME SELF-CARE Condition: Stable Instructions (If sedation given, give patient instructions): Depression (ED) Additional Instructions: Please use medication as discussed. Please follow-up with family doctor in the next 2 days. Please return to emergency room if the symptoms increase or worsen or for any other concerns. Is patient prescribed a controlled substance at d/c from ED?: No Referrals: Trent Salgado DO [Primary Care Provider] - 1-2 days Time of Disposition: 22:53
[2020-01-19 23:14] VITALS: BP 138/74; PULSE 101
== END 2020-01-19 23:13 | disposition home or self-care (01) ==
LOC: EC 20:57
DX: F32.9 Major depressive disorder, single episode, unspecified (principal); F41.9 Anxiety disorder, unspecified; F17.290 Nicotine dependence, other tobacco product, uncomplicated; Z79.899 Other long term (current) drug therapy; Z88.2 Allergy status to sulfonamides; Z88.8 Allergy status to other drugs, medicaments and biological substances; Z91.14 Patient's other noncompliance with medication regimen
CPT/HCPCS: 80306; 81003; 82075; 99285

== ENCOUNTER 2020-05-02 09:01 | Emergency (ER) | payer MEDICARE, OTHER ==
[2020-05-02 09:30] VITALS: RESP 18
--- NOTE | 2020-05-02 09:51 | ED ---
General Adult HPI - General Source: patient, RN notes reviewed Mode of arrival: ambulatory Limitations: no limitations <Richie Keller - Last Filed: 05/02/20 11:20> <Alice Rust - Last Filed: 05/03/20 23:06> - General Chief complaint: Skin/Abscess/Foreign Body Stated complaint: leg swelling Time Seen by Provider: 05/02/20 09:31 - History of Present Illness Initial comments: 34-year-old male with a past medical history of COPD, scabies presents to the emergency room for a chief complaint of redness of the right leg. Patient states she has had swelling and redness of the inner right leg for the past 3 days. He did go to urgent care yesterday and was given clindamycin. States he has taken about 24 hours worth of antibiotics. Patient has not had any fevers. He states that symptoms haven't improved but haven't worsened since starting the antibiotics. He does state that it hasn't spread. Patient has no other complaints at this time including shortness of breath, chest pain, abdominal pain, nausea or vomiting, headache, or visual changes. (Richie Keller) - Related Data Home Medications Medication Instructions Recorded Confirmed hydrOXYzine pamoate [Vistaril] 100 mg PO ONCE 01/19/20 01/19/20 Previous Rx's Medication Instructions Recorded ARIPiprazole [Abilify] 15 mg PO DAILY #30 tab 07/22/19 Allergies Allergy/AdvReac Type Severity Reaction Status Date / Time bupropion HCl Allergy Rash/Hives Verified 05/02/20 09:30 [From Wellbutrin] nitrofurantoin Allergy Unknown Verified 05/02/20 09:30 [From Macrobid] Sulfa (Sulfonamide Allergy Rash/Hives Verified 05/02/20 09:30 Antibiotics) Review of Systems ROS Other: All systems not noted in ROS Statement are negative. <Richie Keller - Last Filed: 05/02/20 11:20> ROS Other: All systems not noted in ROS Statement are negative. <Alice Rust - Last Filed: 05/03/20 23:06> ROS Statement: Those systems with pertinent positive or pertinent negative responses have been documented in the HPI. Past Medical History Past Medical History: COPD, Seizure Disorder Additional Past Medical History / Comment(s): COPD, scabies, History of Any Multi-Drug Resistant Organisms: None Reported Past Surgical History: Ear Surgery Additional Past Surgical History / Comment(s): ear tubes Past Anesthesia/Blood Transfusion Reactions: No Reported Reaction Past Psychological History: Anxiety, Bipolar, Depression Smoking Status: Current every day smoker, Vaper Past Alcohol Use History: Occasional Past Drug Use History: Marijuana - Past Family History Mother Family Medical History: Hypertension, Thyroid Disorder Father Family Medical History: COPD, Diabetes Mellitus, Hypertension Brother(s) Family Medical History: No Reported History Sister(s) Family Medical History: No Reported History <Richie Keller P - Last Filed: 05/02/20 11:20> General Exam Limitations: no limitations General appearance: alert, in no apparent distress Head exam: Present: atraumatic, normocephalic, normal inspection Eye exam: Present: normal appearance, PERRL, EOMI. Absent: scleral icterus, conjunctival injection, periorbital swelling ENT exam: Present: normal exam, mucous membranes moist Neck exam: Present: normal inspection, full ROM. Absent: tenderness, meningismus, lymphadenopathy Respiratory exam: Present: normal lung sounds bilaterally. Absent: respiratory distress, wheezes, rales, rhonchi, stridor Cardiovascular Exam: Present: regular rate, normal rhythm, normal heart sounds. Absent: systolic murmur, diastolic murmur, rubs, gallop, clicks Extremities exam: Present: normal capillary refill (Capillary refill less than 2 seconds right lower extremity, DVT 2+.), other (Patient has 12 cm x 8 cm of erythema noted to the medial aspect of the right leg. No abscesses. No streaking redness. No redness of the testicles) Neurological exam: Present: alert <Richie Keller P - Last Filed: 05/02/20 11:20> Course Vital Signs 05/02/20 05/02/20 09:26 11:31 Temperature 98.2 F 97.8 F Pulse Rate 89 64 Respiratory 18 18 Rate Blood Pressure 140/93 124/95 O2 Sat by Pulse 98 98 Oximetry Medical Decision Making <Richie Keller P - Last Filed: 05/02/20 11:20> <Alice Rust - Last Filed: 05/03/20 23:06> - Medical Decision Making 34-year-old male presents for redness of the right inner leg. This is consistent with cellulitis on exam. Patient has been on about 24 hours of antibiotic therapy. 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 He came because it was not completely gone. At this point out continue antibiotics for one more day. If symptoms are worsening at that point then he should return for IV antibiotics. Patient already on clindamycin 300 mg 4 times daily. Patient is understanding of directions and is aware of when he needs to return. In triage note stated the patient states his neighbors are to get him. I discussed with the patient. He states he has these thoughts at times. States he is supposed to be seeing a psychiatrist. Patient states he would never act on these thoughts. He has no pulsatile harming himself or anyone else. These thoughts been stable for quite sometime. He will follow up with his psychiatrist (Richie Keller) I was available for consultation in the emergency department. The history and physical exam were done by the midlevel provider. I was consulted for this patients care. I reviewed the case with the midlevel provider and based on their presentation of the patient, I agree with the assessment, medical decision making and plan of care as documented. Chart was dictated using [employer] dictation software. Attempts were made to correct any dictation errors however some typographical errors may persist. (Alice Rust) Disposition Is patient prescribed a controlled substance at d/c from ED?: No Time of Disposition: 11:18 <Richie Keller - Last Filed: 05/02/20 11:20> <Alice Rust - Last Filed: 05/03/20 23:06> Clinical Impression: Cellulitis Disposition: HOME SELF-CARE Condition: Good Instructions (If sedation given, give patient instructions): Cellulitis (ED) Additional Instructions: Please continue antibiotics. Monitor symptoms. If symptoms are worsening tomorrow you need to return to the emergency room. If they're not improving over the next couple days you need to return as well. Otherwise follow-up with your doctor. Referrals: Trent Salgado DO [Primary Care Provider] - 1-2 days
[2020-05-02 11:31] VITALS: BP 124/95; PULSE 64; TEMP 97.8
== END 2020-05-02 11:31 | disposition home or self-care (01) ==
LOC: EC 09:01
DX: L03.115 Cellulitis of right lower limb (principal); J44.9 Chronic obstructive pulmonary disease, unspecified; F32.9 Major depressive disorder, single episode, unspecified; F17.200 Nicotine dependence, unspecified, uncomplicated; F12.90 Cannabis use, unspecified, uncomplicated
CPT/HCPCS: 99283

== ENCOUNTER 2020-06-24 11:15 | Emergency (ER) | payer MEDICARE, OTHER ==
[2020-06-24 11:31] VITALS: RESP 18
[2020-06-24 11:45] LABS: Glucose,Whole Blood 97 mg/dL (75-99)
[2020-06-24 12:31] LABS: Basophils % (A) 0 %; Eosinophils # (A) 0.2 k/uL (0-0.7); Eosinophils % (A) 3 %; HCT 49.7 % (39.0-53.0); HGB 17.4 gm/dL (13.0-17.5); Lymphocytes # (A) 1.5 k/uL (1.0-4.8); Lymphocytes % (A) 25 %; MCH 30.9 pg (25.0-35.0); MCV 88.3 fL (80.0-100.0); Mean Platelet Volume 7.7; Monocytes # (A) 0.3 k/uL (0-1.0); Monocytes % (A) 6 %; Neutrophils % (A) 65 %; Platelet Count 202 k/uL (150-450); RBC 5.62 m/uL (4.30-5.90); RDW 12.3 % (11.5-15.5); WBC 6.1 k/uL (3.8-10.6)
[2020-06-24 12:41] LABS: ALT 41 U/L (4-49); AST 34 U/L (17-59); African American GFR (CKD) >90 (>60 ml/min/1.73 sqM); Albumin 4.9 g/dL (3.5-5.0); Alkaline Phosphatase 75 U/L (38-126); Anion Gap 9 mmol/L; Blood Urea Nitrogen 14 mg/dL (9-20); Carbon Dioxide 29 mmol/L (22-30); Chloride 104 mmol/L (98-107); Glucose 90 mg/dL (74-99); Non-African American GFR(CKD) >90 (>60 ml/min/1.73 sqM); Potassium 4.5 mmol/L (3.5-5.1); Sodium 142 mmol/L (137-145); Total Bilirubin 0.6 mg/dL (0.2-1.3); Total Protein 8.1 g/dL (6.3-8.2)
--- NOTE | 2020-06-24 12:50 | CT ---
EXAMINATION TYPE: CT brain wo con DATE OF EXAM: 06/24/2020 COMPARISON: 12/25/2017 INDICATION: Headache/dizziness/nausea DLP: 1072.4 mGycm, Automated exposure control for dose reduction was used. CONTRAST: None CT of the brain is performed utilizing 3 mm thick sections through the posterior fossa and 3 mm thick sections through the remaining calvarium. Study is performed within 24 hours of arrival to the hosp [facility]. No abnormal hyperdensity is present to suggest an acute intracranial hemorrhage. No mass lesion is evident. No acute infarcts are evident. Ventricles and sulci are appropriate for the patient age. Paranasal sinuses and mastoid air cells within the [id number]-md-[id number] are clear. IMPRESSIONS: 1. No acute intracranial process.
[2020-06-24] MEDS ORDERED: KETOROLAC 15 MG/ML 1 ML VIAL IVP STA (12:55)
--- NOTE | 2020-06-24 14:29 | ED ---
Headache HPI - General Chief Complaint: Headache Stated Complaint: headache/dizziness Time Seen by Provider: 06/24/20 11:51 Mode of arrival: ambulatory Limitations: no limitations - History of Present Illness Initial Comments: 33-year-old male presenting today for chief complaint of headaches. Patient states she has had headaches the past few days. Patient states he said some nausea and light sensitivity. He states he has had headaches in the past he denies this coming on suddenly started to gradually developed over the past 3-4 days. He denies fevers, he said the pain did start in the back of the head (not neck) no sitffness, he states he has no anterior or lateral neck pain he denies any vision loss or vision. Patient states at times he feels lightheaded. Patient denies any cough wheeze states he has nasal congestion past week. Pt denies chest pain, dyspnea. Pt denies localized weakness, sensation deficits. remaining ROS (-). upon arrival he appears nontoxic in no acute distress. - Related Data Home Medications Medication Instructions Recorded Confirmed Buprenorphine HCl/Naloxone HCl 1 tab SL BID PRN 06/24/20 06/24/20 [Zubsolv 1.4-0.36 mg Tablet Sl] Lurasidone [Latuda] 20 mg PO DAILY PRN 06/24/20 06/24/20 Allergies Allergy/AdvReac Type Severity Reaction Status Date / Time bupropion HCl Allergy Rash/Hives Verified 06/24/20 12:44 [From Wellbutrin] nitrofurantoin Allergy Unknown Verified 06/24/20 12:44 [From Macrobid] Sulfa (Sulfonamide Allergy Rash/Hives Verified 06/24/20 12:44 Antibiotics) sulfamethoxazole Allergy Unknown Verified 06/24/20 12:44 [From Bactrim] trimethoprim [From Bactrim] Allergy Unknown Verified 06/24/20 12:44 Review of Systems ROS Statement: Those systems with pertinent positive or pertinent negative responses have been documented in the HPI. ROS Other: All systems not noted in ROS Statement are negative. Past Medical History Past Medical History: COPD, Seizure Disorder Additional Past Medical History / Comment(s): COPD, scabies, History of Any Multi-Drug Resistant Organisms: None Reported Past Surgical History: Ear Surgery Additional Past Surgical History / Comment(s): ear tubes Past Anesthesia/Blood Transfusion Reactions: No Reported Reaction Past Psychological History: Anxiety, Bipolar, Depression Smoking Status: Current every day smoker, Vaper Past Alcohol Use History: Occasional Past Drug Use History: Marijuana - Past Family History Mother Family Medical History: Hypertension, Thyroid Disorder Father Family Medical History: COPD, Diabetes Mellitus, Hypertension Brother(s) Family Medical History: No Reported History Sister(s) Family Medical History: No Reported History General Exam - General Exam Comments Initial Comments: General: The patient is awake and alert, in no distress Eye: +3 mm pupils are equal, round and reactive to light, extra-ocular movements are intact. No nystagmus. There is normal conjunctiva bilaterally. No signs of icterus. Ears, nose, mouth and throat: There are moist mucous membranes and no oral lesions. Neck: The neck is supple, there is no tenderness or JVD. Cardiovascular: There is a regular rate and rhythm. No murmur, rub or gallop is appreciated. Respiratory: Lungs are clear to auscultation, respirations are non-labored, breath sounds are equal. No wheezes, stridor, rales, or rhonchi. Gastrointestinal: Soft, non-distended, non-tender abdomen without masses or organomegaly noted. There is no rebound or guarding present. Musculoskeletal: Normal ROM, no tenderness. Strength 5/5. Sensation intact. Pulses equal bilaterally 2+. Neurological: A&O x 3. CN II-XII intact,memory intact to immediately, intermediate and retirement recall. Able to follow simple verbal. Able to name a common object (pen). High quality, labial (pa) and lingual (la) speech. Low quality posterior pharynx/larynx (ga) voice sounds. Able to express general knowledge (days in a week). No hemineglect or inattention noted. Finger agnosia (-) and spatially oriented (identified L index finger touched R shoulder with L index finger). Light touch and temperature sensation present over the face, chest, abdomen, back, UE bilaterally, and LE bilaterally. Able to localize point during point localization b/l and extinction. No visible bulk atrophy, hypertrophy, fasciculations, or myoclonus of the UE or LE b/l. Full PROM in UE and LE b/l. Bilateral muscle strength 5/5 for the following muscles: deltoid, bi ceps, triceps, brachioradialis, wrist extensors/flexor, hip flexor, hip abductors/adductors, hamstrings, quadriceps, feet dorsiflexors/plantar flexors. Finger to nose, finger to the examiners finger, and heel to roman coordinated and accurate b/l. Coordinated and even demonstration of hand flip, finger to thumb, and toe tap b/l. Gait is coordinated and even in stride. (-) Romberg. (-) pronator drift. No nuchal rigidity. (-) Brudzinskis and Kernig signs. Skin: Skin is warm and dry and no rashes or lesions are noted. Psychiatric: Cooperative, appropriate mood & affect, normal judgment. Limitations: no limitations Course Vital Signs 06/24/20 06/24/20 06/24/20 11:27 11:48 12:00 Temperature 98.2 F Pulse Rate 88 76 71 Respiratory 18 20 19 Rate Blood Pressure 143/103 135/95 O2 Sat by Pulse 96 99 98 Oximetry 06/24/20 06/24/20 06/24/20 13:00 14:00 14:48 Temperature 98.1 F Pulse Rate 70 65 75 Respiratory 20 18 18 Rate Blood Pressure 127/87 120/85 116/76 O2 Sat by Pulse 100 98 98 Oximetry Medical Decision Making - Medical Decision Making 34yo female presenting for cc of headaches, no focal deficits. covid (-). CT (- ). patient treated symptomatically. states CASE gone. pt states he would like ot try going home, he is aware of recommendation of outpatient pcp f/u and return to the ER for return/worsening symptoms. discussed case with Dr. Lyle who is agreeable to care plan and discharge. - Lab Data Result diagrams: 06/24/20 12:18 06/24/20 12:18 Lab Results 06/24/20 06/24/20 06/24/20 Range/Units 11:44 12:18 12:18 WBC 6.1 (3.8-10.6) k/uL RBC 5.62 (4.30-5.90) m/uL Hgb 17.4 (13.0-17.5) gm/dL Hct 49.7 (39.0-53.0) % MCV 88.3 (80.0-100.0) fL MCH 30.9 (25.0-35.0) pg MCHC 35.0 (31.0-37.0) g/dL RDW 12.3 (11.5-15.5) % Plt Count 202 (150-450) k/uL MPV 7.7 Neutrophils % 65 % Lymphocytes % 25 % Monocytes % 6 % Eosinophils % 3 % Basophils % 0 % Neutrophils # 4.0 (1.3-7.7) k/uL Lymphocytes # 1.5 (1.0-4.8) k/uL Monocytes # 0.3 (0-1.0) k/uL Eosinophils # 0.2 (0-0.7) k/uL Basophils # 0.0 (0-0.2) k/uL Sodium 142 (137-145) mmol/L Potassium 4.5 (3.5-5.1) mmol/L Chloride 104 (98-107) mmol/L Carbon Dioxide 29 (22-30) mmol/L Anion Gap 9 mmol/L BUN 14 (9-20) mg/dL Creatinine 0.98 (0.66-1.25) mg/dL Est GFR (CKD-EPI)AfAm >90 (>60 ml/min/1.73 sqM) Est GFR (CKD-EPI)NonAf >90 (>60 ml/min/1.73 sqM) Glucose 90 (74-99) mg/dL POC Glucose (mg/dL) 97 (75-99) mg/dL POC Glu V Belt Curer ID Kory Tomlin Calcium 10.0 (8.4-10.2) mg/dL Total Bilirubin 0.6 (0.2-1.3) mg/dL AST 34 (17-59) U/L ALT 41 (4-49) U/L Alkaline Phosphatase 75 (38-126) U/L Total Protein 8.1 (6.3-8.2) g/dL Albumin 4.9 (3.5-5.0) g/dL Influenza Type A (PCR) (Not Detectd) Influenza Type B (PCR) (Not Detectd) RSV (PCR) (Not Detectd) SARS-CoV-2 (PCR) (Not Detectd) 06/24/20 Range/Units 12:18 WBC (3.8-10.6) k/uL RBC (4.30-5.90) m/uL Hgb (13.0-17.5) gm/dL Hct (39.0-53.0) % MCV (80.0-100.0) fL MCH (25.0-35.0) pg MCHC (31.0-37.0) g/dL RDW (11.5-15.5) % Plt Count (150-450) k/uL MPV Neutrophils % % Lymphocytes % % Monocytes % % Eosinophils % % Basophils % % Neutrophils # (1.3-7.7) k/uL Lymphocytes # (1.0-4.8) k/uL Monocytes # (0-1.0) k/uL Eosinophils # (0-0.7) k/uL Basophils # (0-0.2) k/uL Sodium (137-145) mmol/L Potassium (3.5-5.1) mmol/L Chloride (98-107) mmol/L Carbon Dioxide (22-30) mmol/L Anion Gap mmol/L BUN (9-20) mg/dL Creatinine (0.66-1.25) mg/dL Est GFR (CKD-EPI)AfAm (>60 ml/min/1.73 sqM) Est GFR (CKD-EPI)NonAf (>60 ml/min/1.73 sqM) Glucose (74-99) mg/dL POC Glucose (mg/dL) (75-99) mg/dL POC Glu V Belt Curer ID Calcium (8.4-10.2) mg/dL Total Bilirubin (0.2-1.3) mg/dL AST (17-59) U/L ALT (4-49) U/L Alkaline Phosphatase (38-126) U/L Total Protein (6.3-8.2) g/dL Albumin (3.5-5.0) g/dL Influenza Type A (PCR) Not Detected (Not Detectd) Influenza Type B (PCR) Not Detected (Not Detectd) RSV (PCR) Not Detected (Not Detectd) SARS-CoV-2 (PCR) Not Detected (Not Detectd) Disposition Clinical Impression: Headache Disposition: HOME SELF-CARE Condition: Good Instructions (If sedation given, give patient instructions): Acute Headache (ED) Additional Instructions: Please use medication as discussed. Please follow-up with family doctor in the next 2 days. Please return to emergency room if the symptoms increase or worsen or for any other concerns. Is patient prescribed a controlled substance at d/c from ED?: No Referrals: Trent Salgado DO [Primary Care Provider] - 1-2 days Time of Disposition: 14:29
[2020-06-24 14:50] VITALS: BP 116/76; PULSE 75; TEMP 98.1
== END 2020-06-24 14:49 | disposition home or self-care (01) ==
LOC: EC 11:15
DX: R51.9 Headache, unspecified (principal); R42 Dizziness and giddiness; R11.0 Nausea; J44.9 Chronic obstructive pulmonary disease, unspecified; G40.909 Epilepsy, unspecified, not intractable, without status epilepticus; F41.9 Anxiety disorder, unspecified; F32.9 Major depressive disorder, single episode, unspecified; F12.90 Cannabis use, unspecified, uncomplicated; F17.290 Nicotine dependence, other tobacco product, uncomplicated; Z20.822 Contact with and (suspected) exposure to COVID-19
CPT/HCPCS: 36415; 80053; 85025; 87636; 70450; 99284; 96374; J1885

== ENCOUNTER 2020-07-05 21:37 | Emergency (ER) | payer MEDICARE, OTHER ==
[2020-07-05 22:15] VITALS: TEMP 98
[2020-07-05] MEDS ORDERED: DIPH,PERTUS(ACELL)TETVAC-LF 0.5 ML VIAL IM ONE (22:40)
[2020-07-05] MEDS ORDERED: BACITRACIN OINT 1 EACH PACKET TOPICAL ONE (22:40)
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
[2020-07-05] MEDS ORDERED: LORazepam 1 MG TAB PO STA (23:42)
[2020-07-06 00:09] LABS: Amphetamine Screen,Urine Not Detected (NotDetected); Barbiturate Screen,Urine Not Detected (NotDetected); Benzodiazepines Screen,Urine Not Detected (NotDetected); Cocaine Screen,Urine Not Detected (NotDetected); Methadone Screen, Urine Not Detected (NotDetected); Opiate Screen,Urine Not Detected (NotDetected); Oxycodone Screen, Urine Not Detected (NotDetected); Phencyclidine Screen,Urine Not Detected (NotDetected); Tricyclic Antidepressant,Urine Not Detected (NotDetected); Urn Cannabinoid Scrn Detected (NotDetected)
[2020-07-06 02:08] LABS: Basophils # (A) 0.1 k/uL (0-0.2); Basophils % (A) 1 %; Eosinophils # (A) 0.2 k/uL (0-0.7); Eosinophils % (A) 3 %; HCT 52.5 % (39.0-53.0); HGB 17.5 gm/dL (13.0-17.5); Lymphocytes # (A) 2.4 k/uL (1.0-4.8); Lymphocytes % (A) 29 %; MCH 29.9 pg (25.0-35.0); MCHC 33.3 g/dL (31.0-37.0); MCV 89.8 fL (80.0-100.0); Mean Platelet Volume 7.8; Monocytes # (A) 0.4 k/uL (0-1.0); Monocytes % (A) 4 %; Neutrophils # (A) 5.1 k/uL (1.3-7.7); Neutrophils % (A) 62 %; Platelet Count 216 k/uL (150-450); RBC 5.85 m/uL (4.30-5.90); RDW 13.2 % (11.5-15.5); WBC 8.2 k/uL (3.8-10.6)
[2020-07-06 02:14] LABS: ALT 24 U/L (4-49); AST 26 U/L (17-59); African American GFR (CKD) >90 (>60 ml/min/1.73 sqM); Alkaline Phosphatase 73 U/L (38-126); Anion Gap 13 mmol/L; Blood Urea Nitrogen 21 mg/dL (9-20); Calcium 9.9 mg/dL (8.4-10.2); Carbon Dioxide 23 mmol/L (22-30); Chloride 103 mmol/L (98-107); Glucose 156 mg/dL (74-99); Non-African American GFR(CKD) >90 (>60 ml/min/1.73 sqM); Potassium 3.7 mmol/L (3.5-5.1); Sodium 139 mmol/L (137-145); Total Bilirubin 0.9 mg/dL (0.2-1.3); Total Protein 7.8 g/dL (6.3-8.2)
[2020-07-06] MEDS: LORazepam 2 MG/ML INJ IM STA ×2 (02:19→07:47)
[2020-07-06] MEDS ORDERED: LORazepam 1 MG TAB PO PRN (02:20)
[2020-07-06] MEDS ORDERED: KETAMINE 50 MG/ML 10 ML VIAL IM STA ×2 (07:38→07:39)
[2020-07-06] MEDS ORDERED: HALOPERIDOL LACTATE 5 MG/ML 1 ML VIAL IM PRN (07:46)
[2020-07-06] MEDS ORDERED: diphenhydrAMINE 50 MG/ML 1 ML VIAL IM STA (07:47)
[2020-07-06 10:00] VITALS: BP 123/84; PULSE 84; RESP 16
== END 2020-07-06 11:18 | disposition other institution (70) ==
LOC: EC 21:37
DX: T14.91XA Suicide attempt, initial encounter (principal); S61.512A Laceration without foreign body of left wrist, initial encounter; F32.9 Major depressive disorder, single episode, unspecified; G40.909 Epilepsy, unspecified, not intractable, without status epilepticus; J44.9 Chronic obstructive pulmonary disease, unspecified; Z65.3 Problems related to other legal circumstances; Z79.899 Other long term (current) drug therapy; Z82.49 Family history of ischemic heart disease and other diseases of the circulatory system; Z83.3 Family history of diabetes mellitus; Z83.49 Family history of other endocrine, nutritional and metabolic diseases; Z88.1 Allergy status to other antibiotic agents; Z88.2 Allergy status to sulfonamides; X78.8XXA Intentional self-harm by other sharp object, initial encounter
CPT/HCPCS: 82075; 36415; 80053; 85025; 80306; 87635; 90715; 99285; 96372 ×3; 90471; J2060; J1200; J1630

== ENCOUNTER 2021-03-17 20:03 | Emergency (ER) | payer MEDICARE, OTHER ==
[2021-03-17 20:14] VITALS: BP 133/91; PULSE 91; RESP 20; TEMP 98.6
--- NOTE | 2021-03-17 22:27 | ED ---
General Adult HPI - General Chief complaint: Psychiatric Symptoms Stated complaint: mental health Time Seen by Provider: 03/17/21 20:12 Source: patient, RN notes reviewed, old records reviewed Mode of arrival: ambulatory Limitations: no limitations - History of Present Illness Initial comments: 35-year-old male who presented with increased depression and intermittent thoughts of suicide. Patient denies suicide attempt or specific suicidal plan. He states he has been sleeping more than usual and just has felt overall depressed. He states she's had racing thoughts. He denies physical complaints. - Related Data Home Medications Medication Instructions Recorded Confirmed Pregabalin [Lyrica] 50 mg PO BID 07/05/20 03/17/21 ARIPiprazole IM SYRINGE [Abilify 400 mg IM QMONTHLY 03/17/21 03/17/21 Maintena Syringe] DULoxetine HCL [Cymbalta] 60 mg PO DAILY 03/17/21 03/17/21 carBAMazepine [TEGretol] 200 mg PO BID 03/17/21 03/17/21 Allergies Allergy/AdvReac Type Severity Reaction Status Date / Time bupropion HCl Allergy Rash/Hives Verified 03/17/21 21:03 [From Wellbutrin] nitrofurantoin Allergy Unknown Verified 03/17/21 21:03 [From Macrobid] Sulfa (Sulfonamide Allergy Rash/Hives Verified 03/17/21 21:03 Antibiotics) sulfamethoxazole Allergy Unknown Verified 03/17/21 21:03 [From Bactrim] trimethoprim [From Bactrim] Allergy Unknown Verified 03/17/21 21:03 Review of Systems ROS Statement: Those systems with pertinent positive or pertinent negative responses have been documented in the HPI. ROS Other: All systems not noted in ROS Statement are negative. Past Medical History Past Medical History: COPD, Seizure Disorder Additional Past Medical History / Comment(s): COPD, scabies, History of Any Multi-Drug Resistant Organisms: None Reported Past Surgical History: Ear Surgery Additional Past Surgical History / Comment(s): ear tubes Past Anesthesia/Blood Transfusion Reactions: No Reported Reaction Past Psychological History: Anxiety, Bipolar, Depression Smoking Status: Current every day smoker, Vaper Past Alcohol Use History: Occasional Past Drug Use History: Marijuana - Past Family History Mother Family Medical History: Hypertension, Thyroid Disorder Father Family Medical History: COPD, Diabetes Mellitus, Hypertension Brother(s) Family Medical History: No Reported History Sister(s) Family Medical History: No Reported History General Exam Limitations: no limitations General appearance: alert, in no apparent distress Head exam: Present: atraumatic Eye exam: Present: normal appearance, PERRL ENT exam: Present: normal exam Neck exam: Present: normal inspection. Absent: tenderness Respiratory exam: Present: normal lung sounds bilaterally. Absent: respiratory distress, wheezes Cardiovascular Exam: Present: regular rate, normal rhythm GI/Abdominal exam: Present: soft. Absent: distended, tenderness, guarding Extremities exam: Present: normal inspection, full ROM, normal capillary refill. Absent: pedal edema Neurological exam: Present: alert, oriented X3, CN II-XII intact. Absent: motor sensory deficit Psychiatric exam: Present: depressed, flat affect Skin exam: Present: warm, dry, intact. Absent: cyanosis, diaphoretic Course Vital Signs 03/17/21 20:12 Temperature 98.6 F Pulse Rate 91 Respiratory 20 Rate Blood Pressure 133/91 O2 Sat by Pulse 99 Oximetry - Reevaluation(s) Reevaluation #1: 03/17/21 22:25 I did reevaluate the patient. He is comfortable with discharge and has signed a safety plan. Medical Decision Making - Medical Decision Making 35-year-old male with depression intermittent suicidal thoughts. Patient evaluated by EPS and felt to be safe for discharge. He has signed a safety plan. Strict return parameters are discussed. Disposition Clinical Impression: Depression Disposition: HOME SELF-CARE Condition: Fair Instructions (If sedation given, give patient instructions): Depression (ED) Additional Instructions: [facility]. Please return to the emergency department with any worsening or changing symptoms. Is patient prescribed a controlled substance at d/c from ED?: No Referrals: Nonstaff,Physician [Primary Care Provider] - 1-2 days Andrez Mcdaniels [STAFF PHYSICIAN] - 1-2 days Time of Disposition: 22:45
== END 2021-03-17 23:01 | disposition home or self-care (01) ==
LOC: EC 20:03
DX: F32.A Depression, unspecified (principal); J44.9 Chronic obstructive pulmonary disease, unspecified; F41.9 Anxiety disorder, unspecified; F17.200 Nicotine dependence, unspecified, uncomplicated; F12.90 Cannabis use, unspecified, uncomplicated; Z88.2 Allergy status to sulfonamides; Z88.1 Allergy status to other antibiotic agents
CPT/HCPCS: 82075; 99284

== ENCOUNTER 2021-11-28 13:59 | Inpatient (IN) | payer MEDICARE, OTHER ==
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
[2021-11-28 15:37] LABS: Amphetamine Screen,Urine Not Detected (NotDetected); Barbiturate Screen,Urine Not Detected (NotDetected); Benzodiazepines Screen,Urine Not Detected (NotDetected); Cocaine Screen,Urine Not Detected (NotDetected); Methadone Screen, Urine Not Detected (NotDetected); Opiate Screen,Urine Not Detected (NotDetected); Oxycodone Screen, Urine Not Detected (NotDetected); Phencyclidine Screen,Urine Not Detected (NotDetected); Tricyclic Antidepressant,Urine Not Detected (NotDetected); Urn Cannabinoid Scrn Detected (NotDetected)
[2021-11-28] MEDS ORDERED: MAGNESIUM HYDROXIDE 2,400 MG/10 ML CUP PO PRN (19:03)
[2021-11-28] MEDS ORDERED: HALOPERIDOL LACTATE 5 MG/ML 1 ML VIAL IM PRN (19:03)
[2021-11-28] MEDS ORDERED: ACETAMINOPHEN TAB 325 MG TAB PO PRN (19:03)
[2021-11-28] MEDS ORDERED: MAG HYDROX/AL HYDROX/SIMETH 30 ML CUP PO PRN (19:03)
[2021-11-28] MEDS ORDERED: LORazepam 1 MG TAB PO PRN (19:03)
[2021-11-28] MEDS ORDERED: LORazepam 1 MG/0.5 ML VIAL IM PRN (19:06)
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
[2021-11-29] MEDS ORDERED: SERTRALINE 50 MG TAB PO STA (10:31)
[2021-11-29] MEDS: NICOTINE 14MG/24HR PATCH TRANSDERM SCH (10:35)
[2021-11-29 11:50] LABS: Basophils # (A) 0.1 k/uL (0-0.2); Basophils % (A) 1 %; Eosinophils # (A) 0.2 k/uL (0-0.7); Eosinophils % (A) 4 %; HCT 53.7 % (39.0-53.0); HGB 18.6 gm/dL (13.0-17.5); Lymphocytes # (A) 1.8 k/uL (1.0-4.8); Lymphocytes % (A) 29 %; MCH 31.5 pg (25.0-35.0); MCHC 34.5 g/dL (31.0-37.0); MCV 91.1 fL (80.0-100.0); Mean Platelet Volume 8.8; Monocytes # (A) 0.3 k/uL (0-1.0); Monocytes % (A) 6 %; Neutrophils # (A) 3.7 k/uL (1.3-7.7); Neutrophils % (A) 59 %; Platelet Count 201 k/uL (150-450); RDW 13.1 % (11.5-15.5); WBC 6.3 k/uL (3.8-10.6)
[2021-11-29 12:25] LABS: ALT 24 U/L (4-49); AST 26 U/L (17-59); African American GFR (CKD) >90 (>60 ml/min/1.73 sqM); Albumin 5.1 g/dL (3.5-5.0); Alkaline Phosphatase 66 U/L (38-126); Anion Gap 13 mmol/L; Blood Urea Nitrogen 18 mg/dL (9-20); Calcium 9.8 mg/dL (8.4-10.2); Carbon Dioxide 30 mmol/L (22-30); Chloride 99 mmol/L (98-107); Glucose 87 mg/dL (74-99); Non-African American GFR(CKD) >90 (>60 ml/min/1.73 sqM); Potassium 4.1 mmol/L (3.5-5.1); Sodium 142 mmol/L (137-145); Total Bilirubin 0.9 mg/dL (0.2-1.3); Total Protein 7.8 g/dL (6.3-8.2)
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
[2021-11-29 19:35] LABS: LDL Cholesterol,Calculated 107.3 mg/dL (0.0-131.0)
[2021-11-29] MEDS: cloNIDine HCL 0.1 MG TAB PO SCH (20:13)
[2021-11-30] MEDS: cloNIDine HCL 0.1 MG TAB PO SCH ×2 (08:34→21:19)
[2021-11-30] MEDS: NICOTINE 14MG/24HR PATCH TRANSDERM SCH (08:34)
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
[2021-11-30] MEDS ORDERED: SERTRALINE 25 MG TAB PO ONE (09:00)
[2021-11-30] MEDS ORDERED: SERTRALINE 100 MG TAB PO SCH (09:00)
[2021-11-30] MEDS ORDERED: SERTRALINE 25 MG TAB PO SCH (09:00)
[2021-12-01] MEDS: cloNIDine HCL 0.1 MG TAB PO SCH ×2 (09:06→20:59)
[2021-12-01] MEDS: SERTRALINE 100 MG TAB PO SCH (09:06)
[2021-12-01] MEDS: NICOTINE 14MG/24HR PATCH TRANSDERM SCH (09:07)
[2021-12-02] MEDS: haloperidoL 5 MG TAB PO PRN ×2 (01:59→23:15)
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
[2021-12-02] MEDS: SERTRALINE 100 MG TAB PO SCH (09:02)
[2021-12-02] MEDS: cloNIDine HCL 0.1 MG TAB PO SCH ×2 (09:02→20:17)
[2021-12-02] MEDS: NICOTINE 14MG/24HR PATCH TRANSDERM SCH (09:13)
--- NOTE | 2021-12-02 13:07 | P.PN ---
Progress Note - Text Progress Note Date: 12/02/21 Interval history: Patient was seen bedside. He appeared sedated and states that he was up eating breakfast earlier today. He continues to appear depressed but reports that he has been feeling better. Patient appears to be contemplative about past substance use. He reports having trouble with sleep initiation and received Haldol PRN last night. He is agreeable to trying melatonin. At this time patient denies any suicidal or homicidal ideations intent or plan. Denies any Auditory or visual hallucinations. Patient denies any side effects from the medications and has been compliant with meds. Mental status exam: General Appearance: Patient appears to be stated age is alert, directable, and cooperative. Patient has a noticeable hematoma around his left eye. The patient has superficial lacerations on his bilateral forearms and a recent laceration of crying sutures on his left forearm. Behavior: no agitated behavior. Speech: Patient's speech is fluent and nonpressured. Mood/Affect: Mood is improving mildly, affect is congruent and constricted. Suicidality/Homicidality: Patient denies having any suicidal or homicidal ideation intent or plan. Perceptions: Patient denies any visual hallucinations and denies any auditory hallucinations Though content/process: There is no evidence of any delusional thought content and thought process is linear and goal-directed. Memory and concentration: AOX3, grossly intact for the purposes of this session Judgment and insight: Improving mildly Assessment/Plan: Continue with current diagnosis. Patient continues to meet criteria for inpatient psychiatric admission for symptom stabilization and safety. Patient will be maintained on current psychotropic medication regimen. Will add melatonin 5 mg qHS for sleep. Monitor for medication compliance and for any psychotropic medication side effects. Will continue to monitor ongoing response to treatment. Encouraged participation in milieu.
[2021-12-02] MEDS: MELATONIN 5 MG TABLET PO SCH (20:17)
[2021-12-03 07:15] VITALS: BP 104/62; PULSE 60; RESP 18; TEMP 98.2
[2021-12-03] MEDS: SERTRALINE 100 MG TAB PO SCH (08:15)
[2021-12-03] MEDS: NICOTINE 14MG/24HR PATCH TRANSDERM SCH (08:15)
[2021-12-03] MEDS: cloNIDine HCL 0.1 MG TAB PO SCH ×2 (08:15→20:20)
--- NOTE | 2021-12-03 17:26 | P.PN ---
Progress Note - Text Progress Note Date: 12/03/21 Interval history: Patient was seen bedside. He appeared sedated and states that he was up eating breakfast earlier today. He continues to appear depressed but reports that he has been feeling better. Patient appears to be contemplative about past substance use although he did not want to discuss this further. He reports having trouble with sleep initiation and received Haldol PRN again last night. He states that melatonin was not helpful. He states that he gets nightmares with trazodone. At this time patient denies any suicidal or homicidal ideations intent or plan. Denies any Auditory or visual hallucinations. Patient denies any side effects from the medications and has been compliant with meds. Mental status exam: General Appearance: Patient appears to be stated age is alert, directable, and cooperative. Patient has a noticeable hematoma around his left eye. Behavior: no agitated behavior. Speech: Patient's speech is fluent and nonpressured. Mood/Affect: Mood is improving mildly, affect is congruent and constricted. Suicidality/Homicidality: Patient denies having any suicidal or homicidal ideation intent or plan. Perceptions: Patient denies any visual hallucinations and denies any auditory hallucinations Though content/process: There is no evidence of any delusional thought content and thought process is linear and goal-directed. Memory and concentration: AOX3, grossly intact for the purposes of this session Judgment and insight: Improving mildly Assessment/Plan: Continue with current diagnosis. Patient continues to meet criteria for inpatient psychiatric admission for symptom stabilization and safety. Patient will be maintained on current psychotropic medication regimen. Will add Vistaril 25 mg qHS for sleep. Behavioral activation encouraged Monitor for medication compliance and for any psychotropic medication side eff ects. Will continue to monitor ongoing response to treatment. Encouraged participation in milieu.
[2021-12-03] MEDS: MELATONIN 5 MG TABLET PO SCH (20:19)
[2021-12-03] MEDS ORDERED: hydrOXYzine pamoate 25 MG CAP PO SCH (21:00)
[2021-12-04] MEDS: cloNIDine HCL 0.1 MG TAB PO SCH (08:26)
[2021-12-04] MEDS: NICOTINE 14MG/24HR PATCH TRANSDERM SCH (08:26)
[2021-12-04] MEDS: SERTRALINE 100 MG TAB PO SCH (08:26)
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
== END 2021-12-04 12:51 | disposition home or self-care (01) | DRG 882 ==
LOC: EC 13:59 → 3MHU 18:58
PROVIDERS: ADMIT Psychiatry & Neurology Psychiatry; ATTEND Psychiatry & Neurology Psychiatry
DX: F43.25 Adjustment disorder with mixed disturbance of emotions and conduct (principal); R45.851 Suicidal ideations; F17.210 Nicotine dependence, cigarettes, uncomplicated; F43.10 Post-traumatic stress disorder, unspecified; F60.3 Borderline personality disorder; G40.909 Epilepsy, unspecified, not intractable, without status epilepticus; G47.00 Insomnia, unspecified; J44.9 Chronic obstructive pulmonary disease, unspecified; S00.11XA Contusion of right eyelid and periocular area, initial encounter; S51.812A Laceration without foreign body of left forearm, initial encounter; Y04.0XXA Assault by unarmed brawl or fight, initial encounter; F10.10 Alcohol abuse, uncomplicated; F12.10 Cannabis abuse, uncomplicated; Z56.0 Unemployment, unspecified; Z79.899 Other long term (current) drug therapy; Z91.410 Personal history of adult physical and sexual abuse; Z20.822 Contact with and (suspected) exposure to COVID-19
CPT/HCPCS: 80053; 80061; 80306; 82075; 83036; 84443; 85025; 87635; 99285

== ENCOUNTER 2021-12-07 20:54 | Emergency (ER) | payer MEDICARE, OTHER ==
[2021-12-07 21:08] VITALS: BP 152/81; PULSE 84; RESP 16; TEMP 98
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
== END 2021-12-07 21:41 | disposition home or self-care (01) ==
LOC: EC 20:54
DX: Z48.02 Encounter for removal of sutures (principal); J44.9 Chronic obstructive pulmonary disease, unspecified; F17.200 Nicotine dependence, unspecified, uncomplicated; Z88.8 Allergy status to other drugs, medicaments and biological substances; Z88.3 Allergy status to other anti-infective agents; Z88.2 Allergy status to sulfonamides
CPT/HCPCS: 99281

== ENCOUNTER 2022-02-08 23:19 | Emergency (ER) | payer MEDICARE, OTHER ==
[2022-02-08 23:33] VITALS: BP 142/99; PULSE 108; RESP 18; TEMP 97.9
--- NOTE | 2022-02-09 00:38 | ED ---
General Adult HPI - General Chief complaint: Recheck/Abnormal Lab/Rx Stated complaint: Possible HIV exposure Time Seen by Provider: 02/09/22 00:06 Source: patient, RN notes reviewed Mode of arrival: ambulatory Limitations: no limitations - History of Present Illness Initial comments: 36-year-old male presents to the emergency department with concerns of HIV exposure. Patient states he had unprotected penetrative anal intercourse with a man known to be HIV positive and noncompliant with medication regimen. Exposure approximately 36 hours ago, less than 48 hours. Patient states he has not had any known previous HIV exposures. Does not take any immunosuppression medications. Denies any open sores, lesions, or wounds in the genital area. Denies any penile discharge. No dysuria or hematuria. - Related Data Home Medications Medication Instructions Recorded Confirmed ARIPiprazole IM SYRINGE [Abilify 400 mg IM QMONTHLY 03/17/21 11/28/21 Maintena Syringe] Previous Rx's Medication Instructions Recorded Melatonin 5 mg PO HS 15 Days tab 12/04/21 Sertraline [Zoloft] 100 mg PO DAILY 15 Days tab 12/04/21 cloNIDine HCL [Catapres] 0.1 mg PO BID 15 Days tab 12/04/21 hydrOXYzine pamoate [Vistaril] 25 mg PO HS 15 Days cap 12/04/21 Dolutegravir Sodium [Tivicay] 50 mg PO DAILY #28 tablet 02/09/22 Emtricitabine/Tenofovir (Tdf) 1 each PO DAILY #28 tab 02/09/22 [Truvada 200 mg-300 mg Tablet] Allergies Allergy/AdvReac Type Severity Reaction Status Date / Time bupropion HCl Allergy Rash/Hives Verified 02/08/22 23:33 [From Wellbutrin] nitrofurantoin Allergy Unknown Verified 02/08/22 23:33 [From Macrobid] Sulfa (Sulfonamide Allergy Rash/Hives Verified 02/08/22 23:33 Antibiotics) sulfamethoxazole Allergy Unknown Verified 02/08/22 23:33 [From Bactrim] trimethoprim [From Bactrim] Allergy Unknown Verified 02/08/22 23:33 Review of Systems ROS Statement: Those systems with pertinent positive or pertinent negative responses have been documented in the HPI. ROS Other: All systems not noted in ROS Statement are negative. Past Medical History Past Medical History: COPD, Seizure Disorder Additional Past Medical History / Comment(s): COPD, scabies History of Any Multi-Drug Resistant Organisms: None Reported Past Surgical History: Ear Surgery Additional Past Surgical History / Comment(s): ear tubes Past Anesthesia/Blood Transfusion Reactions: No Reported Reaction Past Psychological History: Anxiety, Bipolar, Depression, Schizophrenia Smoking Status: Current every day smoker Past Alcohol Use History: Daily Past Drug Use History: Marijuana - Past Family History Mother Family Medical History: Hypertension, Thyroid Disorder Father Family Medical History: COPD, Diabetes Mellitus, Hypertension Brother(s) Family Medical History: No Reported History Sister(s) Family Medical History: Hyperlipidemia General Exam Limitations: no limitations General appearance: alert, in no apparent distress Respiratory exam: Present: normal lung sounds bilaterally. Absent: respiratory distress, wheezes, rales, rhonchi, stridor Cardiovascular Exam: Present: regular rate, normal rhythm, normal heart sounds. Absent: systolic murmur, diastolic murmur, rubs, gallop, clicks GI/Abdominal exam: Present: soft, normal bowel sounds. Absent: distended, tenderness, guarding, rebound, rigid Neurological exam: Present: alert, oriented X3, CN II-XII intact Psychiatric exam: Present: flat affect Course Vital Signs 02/08/22 23:31 Temperature 97.9 F Pulse Rate 108 H Respiratory 18 Rate Blood Pressure 142/99 O2 Sat by Pulse 96 Oximetry - Reevaluation(s) Reevaluation #1: 02/09/22 00:30 Discussed risks and benefits associated with PEP. Patient is agreeable to POC including baseline labs and initiation of medications. Stressed importance of compliance with follow up care. Medical Decision Making - Medical Decision Making This is a 36-year-old male who presents to the emergency department requesting PEP after having sexual intercourse with an HIV positive individual less than 48 hours ago. Upon exam, patient is well-appearing and in no acute distress. Physical exam findings are unremarkable. He declines STI screening. Discussed risk and benefit of initiating antiviral treatment. Laboratory studies were obtained and are unremarkable. Patient was given first dose of medications while present in the CT tonight. He was given a starter pack with an additional 2 doses. Prescription for 28 day course of treatment sent to the pharmacy. Stressed importance of follow up care for further testing as soon as possible. Return parameters discussed in detail. Patient verbalizes understanding and agrees with this plan. Attending: Roskopp. - Lab Data Result diagrams: 02/09/22 00:21 02/09/22 00:21 Lab Results 02/09/22 02/09/22 Range/Units 00:21 00:21 WBC 7.1 (3.8-10.6) k/uL RBC 4.86 (4.30-5.90) m/uL Hgb 15.6 (13.0-17.5) gm/dL Hct 44.3 (39.0-53.0) % MCV 91.3 (80.0-100.0) fL MCH 32.0 (25.0-35.0) pg MCHC 35.1 (31.0-37.0) g/dL RDW 13.3 (11.5-15.5) % Plt Count 171 (150-450) k/uL MPV 9.3 Neutrophils % 67 % Lymphocytes % 24 % Monocytes % 4 % Eosinophils % 3 % Basophils % 1 % Neutrophils # 4.7 (1.3-7.7) k/uL Lymphocytes # 1.7 (1.0-4.8) k/uL Monocytes # 0.3 (0-1.0) k/uL Eosinophils # 0.2 (0-0.7) k/uL Basophils # 0.1 (0-0.2) k/uL Sodium 139 (137-145) mmol/L Potassium 4.2 (3.5-5.1) mmol/L Chloride 104 (98-107) mmol/L Carbon Dioxide 28 (22-30) mmol/L Anion Gap 7 mmol/L BUN 24 H (9-20) mg/dL Creatinine 0.84 (0.66-1.25) mg/dL Est GFR (CKD-EPI)AfAm >90 (>60 ml/min/1.73 sqM) Est GFR (CKD-EPI)NonAf >90 (>60 ml/min/1.73 sqM) Glucose 99 (74-99) mg/dL Calcium 9.1 (8.4-10.2) mg/dL Total Bilirubin 0.7 (0.2-1.3) mg/dL AST 32 (17-59) U/L ALT 22 (4-49) U/L Alkaline Phosphatase 56 (38-126) U/L Total Protein 6.5 (6.3-8.2) g/dL Albumin 4.2 (3.5-5.0) g/dL Disposition Clinical Impression: HIV exposure Disposition: HOME SELF-CARE Condition: Stable Instructions (If sedation given, give patient instructions): Postexposure Prophylaxis (ED) Additional Instructions: It is very important that you take this medication exactly as prescribed and continue full course of treatment for 28 days. Expect that you are likely to f eel somewhat poorly while taking this medicine. Follow up with your local health department or PCP for recheck and follow up testing. Avoid unprotected sex. Return to the emergency department with any new, worsening, or concerning symptoms. Prescriptions: Dolutegravir Sodium [Tivicay] 50 mg PO DAILY #28 tablet Emtricitabine/Tenofovir (Tdf) [Truvada 200 mg-300 mg Tablet] 1 each PO DAILY #28 tab Is patient prescribed a controlled substance at d/c from ED?: No Referrals: Sandro Orr DO [Primary Care Provider] - 1-2 days Time of Disposition: 03:19
[2022-02-09 01:55] LABS: ALT 22 U/L (4-49); AST 32 U/L (17-59); African American GFR (CKD) >90 (>60 ml/min/1.73 sqM); Albumin 4.2 g/dL (3.5-5.0); Alkaline Phosphatase 56 U/L (38-126); Anion Gap 7 mmol/L; Blood Urea Nitrogen 24 mg/dL (9-20); Calcium 9.1 mg/dL (8.4-10.2); Carbon Dioxide 28 mmol/L (22-30); Chloride 104 mmol/L (98-107); Glucose 99 mg/dL (74-99); Non-African American GFR(CKD) >90 (>60 ml/min/1.73 sqM); Potassium 4.2 mmol/L (3.5-5.1); Sodium 139 mmol/L (137-145); Total Bilirubin 0.7 mg/dL (0.2-1.3); Total Protein 6.5 g/dL (6.3-8.2)
[2022-02-09 02:23] LABS: Basophils # (A) 0.1 k/uL (0-0.2); Basophils % (A) 1 %; Eosinophils # (A) 0.2 k/uL (0-0.7); Eosinophils % (A) 3 %; HCT 44.3 % (39.0-53.0); HGB 15.6 gm/dL (13.0-17.5); Lymphocytes # (A) 1.7 k/uL (1.0-4.8); Lymphocytes % (A) 24 %; MCHC 35.1 g/dL (31.0-37.0); MCV 91.3 fL (80.0-100.0); Mean Platelet Volume 9.3; Monocytes # (A) 0.3 k/uL (0-1.0); Monocytes % (A) 4 %; Neutrophils # (A) 4.7 k/uL (1.3-7.7); Neutrophils % (A) 67 %; Platelet Count 171 k/uL (150-450); RBC 4.86 m/uL (4.30-5.90); RDW 13.3 % (11.5-15.5); WBC 7.1 k/uL (3.8-10.6)
[2022-02-09] MEDS ORDERED: EMTRICITABINE/TENOFOVIR (TDF) 1 EACH, DOLUTEGRAVIR SODIUM 50 MG PO SCH ×2 (09:00)
== END 2022-02-09 04:03 | disposition home or self-care (01) ==
LOC: EC 23:19
DX: Z20.6 Contact with and (suspected) exposure to human immunodeficiency virus [HIV] (principal); J44.9 Chronic obstructive pulmonary disease, unspecified; G40.909 Epilepsy, unspecified, not intractable, without status epilepticus; F41.9 Anxiety disorder, unspecified; F31.9 Bipolar disorder, unspecified; F17.200 Nicotine dependence, unspecified, uncomplicated; F12.90 Cannabis use, unspecified, uncomplicated; Z88.8 Allergy status to other drugs, medicaments and biological substances; Z88.1 Allergy status to other antibiotic agents; Z88.2 Allergy status to sulfonamides; Z79.899 Other long term (current) drug therapy
CPT/HCPCS: 36415; 80053; 85025; 99283

== ENCOUNTER 2022-03-13 17:22 | Emergency (ER) | payer MEDICAID, MEDICARE ==
[2022-03-13 17:30] VITALS: BP 134/88; PULSE 62; RESP 16; TEMP 98.2
--- NOTE | 2022-03-13 18:12 | ED ---
Skin/Abscess/FB HPI - General Chief complaint: Skin/Abscess/Foreign Body Stated complaint: rash Time Seen by Provider: 03/13/22 17:46 Source: patient Mode of arrival: ambulatory Limitations: no limitations - History of Present Illness Initial comments: Patient is a 36-year-old male presenting with chief complaint of rash. Patient states that the rash started today, it consists of numerous red dots along his waistline. Patient reports that today he was helping some friends as a project and was sweating a lot. He states that it is not painful and does not itch. Patient wants to be evaluated because at the end of January he was exposed to HIV, he is currently on post exposure prophylaxis. He denies any fever, chills, pharyngitis, chest pain, difficulty breathing, headache, vision or hearing changes, neck pain or stiffness, abdominal pain, nausea, vomiting, cough. - Related Data Home Medications Medication Instructions Recorded Confirmed ARIPiprazole IM SYRINGE [Abilify 400 mg IM QMONTHLY 03/17/21 11/28/21 Maintena Syringe] Previous Rx's Medication Instructions Recorded Melatonin 5 mg PO HS 15 Days tab 12/04/21 Sertraline [Zoloft] 100 mg PO DAILY 15 Days tab 12/04/21 cloNIDine HCL [Catapres] 0.1 mg PO BID 15 Days tab 12/04/21 hydrOXYzine pamoate [Vistaril] 25 mg PO HS 15 Days cap 12/04/21 Dolutegravir Sodium [Tivicay] 50 mg PO DAILY #28 tablet 02/09/22 Emtricitabine/Tenofovir (Tdf) 1 each PO DAILY #28 tab 02/09/22 [Truvada 200 mg-300 mg Tablet] Hydrocortisone Cream 1 applic TOPICAL BID #28 gm 03/13/22 [Hydrocortisone 1% Cream] Allergies Allergy/AdvReac Type Severity Reaction Status Date / Time bupropion HCl Allergy Rash/Hives Verified 02/08/22 23:33 [From Wellbutrin] nitrofurantoin Allergy Unknown Verified 02/08/22 23:33 [From Macrobid] Sulfa (Sulfonamide Allergy Rash/Hives Verified 02/08/22 23:33 Antibiotics) sulfamethoxazole Allergy Unknown Verified 02/08/22 23:33 [From Bactrim] trimethoprim [From Bactrim] Allergy Unknown Verified 02/08/22 23:33 Review of Systems ROS Statement: Those systems with pertinent positive or pertinent negative responses have been documented in the HPI. ROS Other: All systems not noted in ROS Statement are negative. Past Medical History Past Medical History: COPD, Seizure Disorder Additional Past Medical History / Comment(s): scabies History of Any Multi-Drug Resistant Organisms: None Reported Past Surgical History: Ear Surgery Additional Past Surgical History / Comment(s): ear tubes Past Anesthesia/Blood Transfusion Reactions: No Reported Reaction Past Psychological History: Anxiety, Bipolar, Depression, Schizophrenia Smoking Status: Current every day smoker Past Alcohol Use History: Occasional Past Drug Use History: Cocaine, Marijuana - Past Family History Mother Family Medical History: Hypertension, Thyroid Disorder Father Family Medical History: COPD, Diabetes Mellitus, Hypertension Brother(s) Family Medical History: No Reported History Sister(s) Family Medical History: Hyperlipidemia General Exam Limitations: no limitations General appearance: alert, in no apparent distress Head exam: Present: atraumatic, normocephalic, normal inspection Eye exam: Present: normal appearance Neck exam: Present: normal inspection, full ROM Neurological exam: Present: alert, oriented X3, CN II-XII intact Psychiatric exam: Present: normal affect, normal mood Expanded Description of rash: Present: papular (Erythematous papules, no pruritus or discomfort or discharge) Course Vital Signs 03/13/22 17:28 Temperature 98.2 F Pulse Rate 62 Respiratory 16 Rate Blood Pressure 134/88 O2 Sat by Pulse 97 Oximetry Medical Decision Making - Medical Decision Making Was pt. sent in by a medical professional or institution (, PA, INSTALLATION & MAINTENANCE EXECUTIVE, urgent care, hospital, or retirement...) When possible be specific @ -No Did you speak to anyone other than the patient for history (EMS, parent, family, police, friend...)? What history was obtained from this source @ -No Did you review nursing and triage notes (agree or disagree)? Why? @ -I reviewed and agree with nursing and triage notes Were old charts reviewed (outside hosp., previous admission, EMS record, old EKG, old radiological studies, urgent care reports/EKG's, retirement records)? Report findings @ -Previous visit reviewed Differential Diagnosis (chest pain, altered mental status, abdominal pain women, abdominal pain men, vaginal bleeding, weakness, fever, dyspnea, syncope, headache, dizziness, GI bleed, back pain, seizure, CVA, palpatations, mental health)? @ -Differential includes contact dermatitis, HIV related rash, folliculitis EKG interpreted by me (3pts min.). @ -As above X-rays interpreted by me (1pt min.). @ -None done CT interpreted by me (1pt min.). @ -None done U/S interpreted by me (1pt. min.). @ -None done What testing was considered but not performed or refused? (CT, X-rays, U/S, labs)? Why? @ -None What meds were considered but not given or refused? Why? @ -None Did you discuss the management of the patient with other professionals (professionals i.e. , PA, INSTALLATION & MAINTENANCE EXECUTIVE, lab, RT, psych nurse, social science teacher, electric bath attendant, teacher, president and chief commercial officer, complex case manager)? Give summary @ -No Was smoking cessation discussed for >3mins.? @ -No Was critical care preformed (if so, how long)? @ -No Were there social determinants of health that impacted care today? How? (Homelessness, low income, unemployed, alcoholism, drug addiction, transportation, low edu. Level, literacy, decrease access to med. care, custodial, rehab)? @ -No Was there de-escalation of care discussed even if they declined (Discuss DNR or withdrawal of care, Hospice)? DNR status @ -No What co-morbidities impacted this encounter? (DM, HTN, Smoking, COPD, CAD, Cancer, CVA, ARF, Chemo, Hep., AIDS, mental health diagnosis, sleep apnea, morbid obesity)? @ -None Was patient admitted / discharged? Hospital course, mention meds given and route, prescriptions, significant lab abnormalities, going to OR and other pertinent info. @ -Patient is a 36-year-old male presenting with chief complaint of rash to the waistband area that started today. On physical examination there are numerous red papules, he denies any pruritus, pain, discharge. No fever or chills. Patient is otherwise asymptomatic. He has been on post exposure prophylaxis for HIV since the end of January. Rash appears to be consistent with contact dermatitis, provided patient with topical steroid cream and instructed to follow-up with his PCP. I stressed to the patient that he needed to follow up with his PCP so that he may have lab work drawn to monitor his liver enzymes all on post exposure prophylaxis. Call the office tomorrow without fail.Follow-up with PCP. Report back to ER with any new or worsening symptoms. Discussed return parameters and answered all questions. Patient conveyed verbal understanding and agreed to the plan. I discussed this case in detail with my attending Dr. Rust Undiagnosed new problem with uncertain prognosis? @ -No Drug Therapy requiring intensive monitoring for toxicity (Heparin, Nitro, Insulin, Cardizem)? @ -No Were any procedures done? @ -No Diagnosis/symptom? @ -Contact dermatitis Acute, or Chronic, or Acute on Chronic? @ -Acute Uncomplicated (without systemic symptoms) or Complicated (systemic symptoms)? @ -Uncomplicated Side effects of treatment? @ -No Exacerbation, Progression, or Severe Exacerbation? @ -No Poses a threat to life or bodily function? How? (Chest pain, [place], [place], pneumonia, PE, COPD, DKA, ARF, appy, cholecystitis, CVA, Diverticulitis, Homicidal, Suicidal, threat to staff... and all critical care pts) @ -No Disposition Clinical Impression: Contact dermatitis Disposition: HOME SELF-CARE Condition: Good Instructions (If sedation given, give patient instructions): Contact Dermatitis (ED) Additional Instructions: Follow-up with PCP. Report back to ER with any new or worsening symptoms. Use cream as advised. Call your PCP's office tomorrow for follow-up appointment and repeat blood draws while on PEP. Prescriptions: Hydrocortisone Cream [Hydrocortisone 1% Cream] 1 applic TOPICAL BID #28 gm Is patient prescribed a controlled substance at d/c from ED?: No Referrals: Sandro Orr DO [Primary Care Provider] - 1-2 days Time of Disposition: 18:12
== END 2022-03-13 18:19 | disposition home or self-care (01) ==
LOC: EC 17:22
DX: L25.9 Unspecified contact dermatitis, unspecified cause (principal); J44.9 Chronic obstructive pulmonary disease, unspecified; F41.9 Anxiety disorder, unspecified; F31.9 Bipolar disorder, unspecified; F12.90 Cannabis use, unspecified, uncomplicated; F14.90 Cocaine use, unspecified, uncomplicated; Z88.8 Allergy status to other drugs, medicaments and biological substances; Z88.1 Allergy status to other antibiotic agents; Z88.2 Allergy status to sulfonamides
CPT/HCPCS: 99283

== ENCOUNTER 2022-07-10 00:30 | Emergency (ER) | payer MEDICARE, OTHER ==
[2022-07-10 00:52] VITALS: RESP 18
--- NOTE | 2022-07-10 02:03 | ED ---
General Adult HPI - General Chief complaint: Extremity Problem,Nontraumatic Stated complaint: Right Roman Injury Time Seen by Provider: 07/10/22 01:25 Source: patient, RN notes reviewed, old records reviewed Mode of arrival: ambulatory Limitations: no limitations - History of Present Illness Initial comments: 36-year-old male presents for evaluation of pain and swelling to the right lower leg. Patient reports injury over the past several days. He reports he was drinking alcohol and is not exactly certain how he injured it. Denies fever. Denies pain in the knee this is located only in the right roman. - Related Data Home Medications Medication Instructions Recorded Confirmed ARIPiprazole IM SYRINGE [Abilify 400 mg IM QMONTHLY 03/17/21 11/28/21 Maintena Syringe] Previous Rx's Medication Instructions Recorded Melatonin 5 mg PO HS 15 Days tab 12/04/21 Sertraline [Zoloft] 100 mg PO DAILY 15 Days tab 12/04/21 cloNIDine HCL [Catapres] 0.1 mg PO BID 15 Days tab 12/04/21 hydrOXYzine pamoate [Vistaril] 25 mg PO HS 15 Days cap 12/04/21 Dolutegravir Sodium [Tivicay] 50 mg PO DAILY #28 tablet 02/09/22 Emtricitabine/Tenofovir (Tdf) 1 each PO DAILY #28 tab 02/09/22 [Truvada 200 mg-300 mg Tablet] Hydrocortisone Cream 1 applic TOPICAL BID #28 gm 03/13/22 [Hydrocortisone 1% Cream] Allergies Allergy/AdvReac Type Severity Reaction Status Date / Time bupropion HCl Allergy Rash/Hives Verified 07/10/22 00:48 [From Wellbutrin] nitrofurantoin Allergy Unknown Verified 07/10/22 00:48 [From Macrobid] Sulfa (Sulfonamide Allergy Rash/Hives Verified 07/10/22 00:48 Antibiotics) sulfamethoxazole Allergy Unknown Verified 07/10/22 00:48 [From Bactrim] trimethoprim [From Bactrim] Allergy Unknown Verified 07/10/22 00:48 Review of Systems ROS Statement: Those systems with pertinent positive or pertinent negative responses have been documented in the HPI. ROS Other: All systems not noted in ROS Statement are negative. Past Medical History Past Medical History: COPD, Seizure Disorder Additional Past Medical History / Comment(s): scabies History of Any Multi-Drug Resistant Organisms: None Reported Past Surgical History: Ear Surgery Additional Past Surgical History / Comment(s): ear tubes Past Anesthesia/Blood Transfusion Reactions: No Reported Reaction Past Psychological History: Anxiety, Bipolar, Depression, Schizophrenia Smoking Status: Current every day smoker Past Alcohol Use History: Daily Past Drug Use History: Cocaine, Marijuana - Past Family History Mother Family Medical History: Hypertension, Thyroid Disorder Father Family Medical History: COPD, Diabetes Mellitus, Hypertension Brother(s) Family Medical History: No Reported History Sister(s) Family Medical History: Hyperlipidemia General Exam Limitations: no limitations General appearance: alert, in no apparent distress Head exam: Present: atraumatic, normocephalic Eye exam: Present: normal appearance, PERRL ENT exam: Present: normal exam Neck exam: Present: normal inspection. Absent: tenderness, meningismus Respiratory exam: Present: normal lung sounds bilaterally. Absent: respiratory distress, wheezes Cardiovascular Exam: Present: regular rate, normal rhythm GI/Abdominal exam: Present: soft. Absent: distended, tenderness, guarding Extremities exam: Present: other (There is erythema over the right roman. There is no calf tenderness, compartments are soft, distal pulses are intact.). Absent: calf tenderness Neurological exam: Present: alert, oriented X3 Psychiatric exam: Present: normal affect, normal mood Skin exam: Present: warm Course Vital Signs 07/10/22 00:48 Temperature 98.3 F Pulse Rate 79 Respiratory 18 Rate Blood Pressure 126/80 O2 Sat by Pulse 98 Oximetry Medical Decision Making - Medical Decision Making Was pt. sent in by a medical professional or institution (, PA, WORKDAY DIRECTOR, urgent care, hospital, or [facility]...) When possible be specific @ -No Did you speak to anyone other than the patient for history (EMS, parent, family, police, friend...)? What history was obtained from this source @ -No Did you review nursing and triage notes (agree or disagree)? Why? @ -I reviewed and agree with nursing and triage notes Were old charts reviewed (outside hosp., previous admission, EMS record, old EKG, old radiological studies, urgent care reports/EKG's, [facility] records)? Report findings @ -No old charts were reviewed Differential Diagnosis (chest pain, altered mental status, abdominal pain women, abdominal pain men, vaginal bleeding, weakness, fever, dyspnea, syncope, headache, dizziness, GI bleed, back pain, seizure, CVA, palpatations, mental health, musculoskeletal)? @ -Differential Musculoskeletal Muscular strain, contusion, ligament sprain, fracture, arthritis, septic arthritis, bursitis, cellulitis, muscle spasm, nerve compression, DVT, arterial occlusion, herpes zoster, electrolyte abnormality, tumor.... This is not meant to be in all inclusive list EKG interpreted by me (3pts min.). @ -As above X-rays interpreted by me (1pt min.). @X-ray of the tibia and fibula on the right were reviewed and interpreted myself, no fracture or acute findings CT interpreted by me (1pt min.). @ -None done U/S interpreted by me (1pt. min.). @ -None done What testing was considered but not performed or refused? (CT, X-rays, U/S, labs)? Why? @ -None What meds were considered but not given or refused? Why? @ -None Did you discuss the management of the patient with other professionals (pro fessionals i.e. , PA, WORKDAY DIRECTOR, lab, RT, psych nurse, director of social media marketing, virologist, teacher, life science technical officer, pillowcase cleaner)? Give summary @ -No Was smoking cessation discussed for >3mins.? @ -No Was critical care preformed (if so, how long)? @ -No Were there social determinants of health that impacted care today? How? (Homelessness, low income, unemployed, alcoholism, drug addiction, transportation, low edu. Level, literacy, decrease access to med. care, [facility], rehab)? @ -No Was there de-escalation of care discussed even if they declined (Discuss DNR or withdrawal of care, Hospice)? DNR status @ -No What co-morbidities impacted this encounter? (DM, HTN, Smoking, COPD, CAD, Cancer, CVA, ARF, Chemo, Hep., AIDS, mental health diagnosis, sleep apnea, morbid obesity)? @ -[EtOH Was patient admitted / discharged? Hospital course, mention meds given and route, prescriptions, significant lab abnormalities, going to OR and other pertinent info. @ -[36-year-old male with right leg injury, x-rays performed, negative for acute fracture dislocation. The compartments are soft, the distal pulses are intact. There is some erythema without induration, no abscess. No calf tenderness Undiagnosed new problem with uncertain prognosis? @ -No Drug Therapy requiring intensive monitoring for toxicity (Heparin, Nitro, Insulin, Cardizem)? @ -No Were any procedures done? @ -No Diagnosis/symptom? @ -Contusion Acute, or Chronic, or Acute on Chronic? @ -Acute Uncomplicated (without systemic symptoms) or Complicated (systemic symptoms)? @Uncomplicated Side effects of treatment? @ -No Exacerbation, Progression, or Severe Exacerbation? @ -No Poses a threat to life or bodily function? How? (Chest pain, [place], [place], pneumonia, PE, COPD, DKA, ARF, appy, cholecystitis, CVA, Diverticulitis, Homicidal, Suicidal, threat to staff... and all critical care pts) @ -No Disposition Clinical Impression: Contusion of leg, right Disposition: HOME SELF-CARE Condition: Fair Instructions (If sedation given, give patient instructions): Contusion in Adults (ED) Is patient prescribed a controlled substance at d/c from ED?: No Referrals: Sandro Orr DO [Primary Care Provider] - 1-2 days Time of Disposition: 02:31
--- NOTE | 2022-07-10 02:11 | XR ---
EXAM: XR Right Tibia and Fibula, 2 Views CLINICAL HISTORY: ITS.REASON XR Reason: fall TECHNIQUE: Frontal and lateral views of the right tibia and fibula. COMPARISON: No relevant prior studies available. FINDINGS: Bones/joints: No acute osseous abnormalities. Soft tissues: Unremarkable. No radiopaque foreign body. IMPRESSION: Unremarkable right tibia and fibula.
[2022-07-10 03:42] VITALS: BP 127/82; PULSE 67; TEMP 97.5
== END 2022-07-10 04:22 | disposition home or self-care (01) ==
LOC: EC 00:30
DX: S80.11XA Contusion of right lower leg, initial encounter (principal); J44.9 Chronic obstructive pulmonary disease, unspecified; F20.9 Schizophrenia, unspecified; F31.9 Bipolar disorder, unspecified; F41.9 Anxiety disorder, unspecified; F17.200 Nicotine dependence, unspecified, uncomplicated; F12.90 Cannabis use, unspecified, uncomplicated; F14.90 Cocaine use, unspecified, uncomplicated; Z79.899 Other long term (current) drug therapy; Z88.1 Allergy status to other antibiotic agents; Z88.2 Allergy status to sulfonamides; Z88.8 Allergy status to other drugs, medicaments and biological substances; X58.XXXA Exposure to other specified factors, initial encounter
CPT/HCPCS: 99283

== ENCOUNTER 2022-08-01 00:46 | Inpatient (IN) | payer MEDICARE, OTHER ==
[2022-08-01 01:31] LABS: Basophils % (A) 1 %; Eosinophils # (A) 0.1 k/uL (0-0.7); Eosinophils % (A) 2 %; HCT 41.5 % (39.0-53.0); HGB 14.1 gm/dL (13.0-17.5); Lymphocytes # (A) 2.4 k/uL (1.0-4.8); Lymphocytes % (A) 35 %; MCH 31.3 pg (25.0-35.0); Mean Platelet Volume 8.4; Monocytes # (A) 0.3 k/uL (0-1.0); Monocytes % (A) 4 %; Neutrophils # (A) 3.9 k/uL (1.3-7.7); Neutrophils % (A) 58 %; Platelet Count 184 k/uL (150-450); RBC 4.51 m/uL (4.30-5.90); RDW 15.1 % (11.5-15.5); WBC 6.8 k/uL (3.8-10.6)
[2022-08-01 01:46] LABS: ALT 23 U/L (4-49); AST 35 U/L (17-59); African American GFR (CKD) >90 (>60 ml/min/1.73 sqM); Albumin 4.2 g/dL (3.5-5.0); Alcohol <10 mg/dL; Alkaline Phosphatase 59 U/L (38-126); Anion Gap 12 mmol/L; Blood Urea Nitrogen 13 mg/dL (9-20); Calcium 8.8 mg/dL (8.4-10.2); Carbon Dioxide 26 mmol/L (22-30); Chloride 102 mmol/L (98-107); Glucose 114 mg/dL (74-99); INR 1.1 (<1.2); Magnesium 1.6 mg/dL (1.6-2.3); Non-African American GFR(CKD) >90 (>60 ml/min/1.73 sqM); Partial Thromboplastin Time 23.9 sec (22.0-30.0); Potassium 3.1 mmol/L (3.5-5.1); Prothrombin Time 11.1 sec (9.0-12.0); Sodium 140 mmol/L (137-145); Total Protein 7.1 g/dL (6.3-8.2)
--- NOTE | 2022-08-01 02:40 | ED ---
General Adult HPI - General Chief complaint: Overdose Stated complaint: dizziness Time Seen by Provider: 08/01/22 00:54 Source: patient Mode of arrival: ambulatory Limitations: no limitations - History of Present Illness Initial comments: This is a 36-year-old male with a past medical history including previous psychosis, depression, anxiety and polysubstance drug abuse presents emergency department because he thought that he took too much and did too many poppers. The patient stated that he did more than usual today and stated that he had odin rtness of breath as well as "white spots" on his visual lake. The patient stated he also had a minor headache with lightheadedness but stated that he did not have any acute pain at this time. The patient stated that he has done these poppers multiple times in the past but stated that he continued to do it throughout the evening tonight. The patient denied any other acute pain or point at this time. - Related Data Home Medications Medication Instructions Recorded Confirmed ARIPiprazole IM SYRINGE [Abilify 400 mg IM QMONTHLY 03/17/21 11/28/21 Maintena Syringe] Previous Rx's Medication Instructions Recorded Melatonin 5 mg PO HS 15 Days tab 12/04/21 Sertraline [Zoloft] 100 mg PO DAILY 15 Days tab 12/04/21 cloNIDine HCL [Catapres] 0.1 mg PO BID 15 Days tab 12/04/21 hydrOXYzine pamoate [Vistaril] 25 mg PO HS 15 Days cap 12/04/21 Dolutegravir Sodium [Tivicay] 50 mg PO DAILY #28 tablet 02/09/22 Emtricitabine/Tenofovir (Tdf) 1 each PO DAILY #28 tab 02/09/22 [Truvada 200 mg-300 mg Tablet] Hydrocortisone Cream 1 applic TOPICAL BID #28 gm 03/13/22 [Hydrocortisone 1% Cream] Allergies Allergy/AdvReac Type Severity Reaction Status Date / Time bupropion HCl Allergy Rash/Hives Verified 08/01/22 00:52 [From Wellbutrin] nitrofurantoin Allergy Unknown Verified 08/01/22 00:52 [From Macrobid] Sulfa (Sulfonamide Allergy Rash/Hives Verified 08/01/22 00:52 Antibiotics) sulfamethoxazole Allergy Unknown Verified 08/01/22 00:52 [From Bactrim] trimethoprim [From Bactrim] Allergy Unknown Verified 08/01/22 00:52 Review of Systems ROS Statement: Those systems with pertinent positive or pertinent negative responses have been documented in the HPI. ROS Other: All systems not noted in ROS Statement are negative. Past Medical History Past Medical History: COPD, Seizure Disorder Additional Past Medical History / Comment(s): scabies History of Any Multi-Drug Resistant Organisms: None Reported Past Surgical History: Ear Surgery Additional Past Surgical History / Comment(s): ear tubes Past Anesthesia/Blood Transfusion Reactions: No Reported Reaction Past Psychological History: Anxiety, Bipolar, Depression, Schizophrenia Smoking Status: Current every day smoker Past Alcohol Use History: Daily Past Drug Use History: Cocaine, Marijuana - Past Family History Mother Family Medical History: Hypertension, Thyroid Disorder Father Family Medical History: COPD, Diabetes Mellitus, Hypertension Brother(s) Family Medical History: No Reported History Sister(s) Family Medical History: Hyperlipidemia General Exam Limitations: no limitations General appearance: alert, in no apparent distress Head exam: Present: atraumatic, normocephalic, normal inspection Eye exam: Present: normal appearance, PERRL Pupils: Present: normal accommodation ENT exam: Present: normal exam, normal oropharynx, mucous membranes moist, other (Mild cyanosis of the oral mucosa) Neck exam: Present: normal inspection, full ROM Respiratory exam: Present: normal lung sounds bilaterally, other (Tachypnic) Cardiovascular Exam: Present: regular rate, normal rhythm, normal heart sounds GI/Abdominal exam: Present: soft, normal bowel sounds Extremities exam: Present: normal inspection, full ROM Back exam: Present: normal inspection, full ROM Neurological exam: Present: alert, oriented X3, CN II-XII intact Psychiatric exam: Present: normal affect, normal mood Skin exam: Present: warm, dry, cyanosis (Mild cyanosis of the oral mucosa) Course Vital Signs 08/01/22 08/01/22 08/01/22 00:50 01:10 01:12 Temperature 98.1 F Pulse Rate 83 Respiratory 18 16 16 Rate Blood Pressure 132/83 O2 Sat by Pulse 95 90 L 93 L Oximetry 08/01/22 08/01/22 08/01/22 01:28 02:00 03:00 Temperature Pulse Rate 79 63 Respiratory 20 18 Rate Blood Pressure 112/69 106/65 O2 Sat by Pulse 91 L 92 L 93 L Oximetry EKG Findings - EKG Comments: EKG Findings:: An EKG was obtained and was interpreted by myself showing a rate of 82, FL interval 174, QRS duration 100 and QTC of 44. His EKG showed a normal sinus rhythm however was significant artifact secondary to patient movement. Medical Decision Making - Medical Decision Making Was pt. sent in by a medical professional or institution (RIVKA Pinzon, DIRECTOR NEWS, urgent care, hospital, or fci...) When possible be specific @ -No Did you speak to anyone other than the patient for history (EMS, parent, family, police, friend...)? What history was obtained from this source @ -No Did you review nursing and triage notes (agree or disagree)? Why? @ -I reviewed and agree with nursing and triage notes Were old charts reviewed (outside hosp., previous admission, EMS record, old EKG, old radiological studies, urgent care reports/EKG's, fci records)? Report findings @ -No old charts were reviewed Differential Diagnosis (chest pain, altered mental status, abdominal pain women, abdominal pain men, vaginal bleeding, weakness, fever, dyspnea, syncope, headache, dizziness, GI bleed, back pain, seizure, CVA, palpatations, mental health)? @ -Pneumothorax, pneumonia, polysubstance abuse EKG interpreted by me (3pts min.). @ -As above X-rays interpreted by me (1pt min.). @ -Chest x-ray was obtained and was interpreted by myself showing no acute process. CT interpreted by me (1pt min.). @ -None done U/S interpreted by me (1pt. min.). @ -None done What testing was considered but not performed or refused? (CT, X-rays, U/S, labs)? Why? @ -None What meds were considered but not given or refused? Why? @ -None Did you discuss the management of the patient with other professionals (professionals i.e. RIVKA Pinzon, DIRECTOR NEWS, lab, RT, psych nurse, geriatric social worker, corporation lawyer, teacher, communications officer, case operator)? Give summary @ -Yes, poison control was contacted as well as the primary care physician was contacted for admission. Was smoking cessation discussed for >3mins.? @ -Yes Was critical care preformed (if so, how long)? @ -No Were there social determinants of health that impacted care today? How? (Homelessness, low income, unemployed, alcoholism, drug addiction, transportation, low edu. Level, literacy, decrease access to med. care, long-term, rehab)? @ -No Was there de-escalation of care discussed even if they declined (Discuss DNR or withdrawal of care, Hospice)? DNR status @ -No What co-morbidities impacted this encounter? (DM, HTN, Smoking, COPD, CAD, Cancer, CVA, ARF, Chemo, Hep., AIDS, mental health diagnosis, sleep apnea, morbid obesity)? @ -Multiple psychiatric comorbidities including depression, anxiety, PTSD as well as polysubstance abuse Was patient admitted / discharged? Hospital course, mention meds given and route, prescriptions, significant lab abnormalities, going to OR and other pertinent info. @ -The patient was seen and evaluated emergency department. Physical exam, the patient was resting in bed however was mildly short of breath. The patient did have cyanosis of the oromucosa as well as the fingertips. Vital signs on admission did show mildly decreased oxygenation saturation but otherwise was within normal limits. Laboratory workup was obtained including a methemoglobin level which was 15%. Due to the patient's elevated level in the setting of popper use, poison control was contacted. They did recommend med hemoglobin measurements every 2 hours and continued observation and management. They stated to keep a close observation on the patient's until the methemoglobin does again to decrease. They did not state a specific wanted time to observe the patient. The patient was placed on a nonrebreather and remain closely monitored observed. Due to the patient's extended amount of time needed to be observed, the patient will be admitted for further workup and evaluation. The patient did not have a primary care physician therefore was covered by [facility]. The patient was admitted in stable condition. Undiagnosed new problem with uncertain prognosis? @ -No Drug Therapy requiring intensive monitoring for toxicity (Heparin, Nitro, Insulin, Cardizem)? @ -No Were any procedures done? @ -No Diagnosis/symptom? @ -Methemoglobinemia Acute, or Chronic, or Acute on Chronic? @ -Acute Uncomplicated (without systemic symptoms) or Complicated (systemic symptoms)? @ -Complicated Side effects of treatment? @ -No Exacerbation, Progression, or Severe Exacerbation? @ -No Poses a threat to life or bodily function? How? (Chest pain, USA, MD, pneumonia, PE, COPD, DKA, ARF, appy, cholecystitis, CVA, Diverticulitis, Homicidal, Suicidal, threat to staff... and all critical care pts) @ -Yes, continued increase in the methemoglobin level can lead to permanent damage and possible . - Lab Data Result diagrams: 08/01/22 01:25 08/01/22 01:25 Lab Results 08/01/22 08/01/22 08/01/22 Range/Units 01:25 01:25 01:25 WBC 6.8 (3.8-10.6) k/uL RBC 4.51 (4.30-5.90) m/uL Hgb 14.1 (13.0-17.5) gm/dL Hct 41.5 (39.0-53.0) % MCV 92.0 (80.0-100.0) fL MCH 31.3 (25.0-35.0) pg MCHC 34.0 (31.0-37.0) g/dL RDW 15.1 (11.5-15.5) % Plt Count 184 (150-450) k/uL MPV 8.4 Neutrophils % 58 % Lymphocytes % 35 % Monocytes % 4 % Eosinophils % 2 % Basophils % 1 % Neutrophils # 3.9 (1.3-7.7) k/uL Lymphocytes # 2.4 (1.0-4.8) k/uL Monocytes # 0.3 (0-1.0) k/uL Eosinophils # 0.1 (0-0.7) k/uL Basophils # 0.0 (0-0.2) k/uL PT 11.1 (9.0-12.0) sec INR 1.1 (<1.2) APTT 23.9 (22.0-30.0) sec D-Dimer <0.17 (<0.60) mg/L FEU Methemoglobin (0.0-1.5) % Sodium 140 (137-145) mmol/L Potassium 3.1 L (3.5-5.1) mmol/L Chloride 102 (98-107) mmol/L Carbon Dioxide 26 (22-30) mmol/L Anion Gap 12 mmol/L BUN 13 (9-20) mg/dL Creatinine 0.76 (0.66-1.25) mg/dL Est GFR (CKD-EPI)AfAm >90 (>60 ml/min/1.73 sqM) Est GFR (CKD-EPI)NonAf >90 (>60 ml/min/1.73 sqM) Glucose 114 H (74-99) mg/dL Calcium 8.8 (8.4-10.2) mg/dL Magnesium 1.6 (1.6-2.3) mg/dL Total Bilirubin 1.0 (0.2-1.3) mg/dL AST 35 (17-59) U/L ALT 23 (4-49) U/L Alkaline Phosphatase 59 (38-126) U/L Troponin I (0.000-0.034) ng/mL Total Protein 7.1 (6.3-8.2) g/dL Albumin 4.2 (3.5-5.0) g/dL Serum Alcohol <10 mg/dL 08/01/22 08/01/22 08/01/22 Range/Units 01:25 01:25 04:12 WBC (3.8-10.6) k/uL RBC (4.30-5.90) m/uL Hgb (13.0-17.5) gm/dL Hct (39.0-53.0) % MCV (80.0-100.0) fL MCH (25.0-35.0) pg MCHC (31.0-37.0) g/dL RDW (11.5-15.5) % Plt Count (150-450) k/uL MPV Neutrophils % % Lymphocytes % % Monocytes % % Eosinophils % % Basophils % % Neutrophils # (1.3-7.7) k/uL Lymphocytes # (1.0-4.8) k/uL Monocytes # (0-1.0) k/uL Eosinophils # (0-0.7) k/uL Basophils # (0-0.2) k/uL PT (9.0-12.0) sec INR (<1.2) APTT (22.0-30.0) sec D-Dimer (<0.60) mg/L FEU Methemoglobin 15.1 H 6.6 H (0.0-1.5) % Sodium (137-145) mmol/L Potassium (3.5-5.1) mmol/L Chloride (98-107) mmol/L Carbon Dioxide (22-30) mmol/L Anion Gap mmol/L BUN (9-20) mg/dL Creatinine (0.66-1.25) mg/dL Est GFR (CKD-EPI)AfAm (>60 ml/min/1.73 sqM) Est GFR (CKD-EPI)NonAf (>60 ml/min/1.73 sqM) Glucose (74-99) mg/dL Calcium (8.4-10.2) mg/dL Magnesium (1.6-2.3) mg/dL Total Bilirubin (0.2-1.3) mg/dL AST (17-59) U/L ALT (4-49) U/L Alkaline Phosphatase (38-126) U/L Troponin I 0.015 (0.000-0.034) ng/mL Total Protein (6.3-8.2) g/dL Albumin (3.5-5.0) g/dL Serum Alcohol mg/dL Disposition Clinical Impression: Methemoglobinemia Disposition: ADMITTED IP TO THIS [facility] Condition: Stable Is patient prescribed a controlled substance at d/c from ED?: No Referrals: Sandro Orr DO [Primary Care Provider] - 1-2 days Time of Disposition: 03:45 Decision to Admit Reason: Admit from EC Decision Date: 08/01/22 Decision Time: 03:45
--- NOTE | 2022-08-01 03:16 | XR ---
EXAM: XR Chest, 2 Views CLINICAL HISTORY: ITS.REASON XR Reason: SOB TECHNIQUE: Frontal and lateral views of the chest. COMPARISON: No relevant prior studies available. FINDINGS: Lungs: No consolidation or mass. Pleural space: No effusion. Heart: No cardiomegaly. Bones/joints: No acute findings. IMPRESSION: No acute cardiopulmonary process.
[2022-08-01] MEDS ORDERED: NALOXONE 0.4 MG/ML 1 ML VIAL IV PRN (04:57)
[2022-08-01] MEDS ORDERED: ARIPiprazole 15 MG TAB PO SCH (09:15)
[2022-08-01] MEDS ORDERED: EMTRICITABINE PO SCH (09:15)
[2022-08-01] MEDS ORDERED: SERTRALINE 100 MG TAB PO SCH (09:15)
[2022-08-01] MEDS ORDERED: TENOFOVIR PO SCH (09:15)
[2022-08-01 09:32] VITALS: TEMP 97.6
[2022-08-01 10:22] VITALS: RESP 18
[2022-08-01] MEDS ORDERED: POTASSIUM CHLORIDE ER 20 MEQ TAB.ER PO STA (11:01)
--- NOTE | 2022-08-01 11:09 | P.DS ---
Providers Date of admission: 08/01/22 04:58 Attending physician: Estela Jaimes Primary care physician: Sandro [facility] Hospital Course: 36-year-old male presented with the cyanosis, found to have methemoglobenemia with methemoglobin levels of around 15 now has come down to 0.5 with high flow concentrator oxygen. Patient admits to using nitric oxide and Amyl nitrate, containing compounds that his poppers rate patient says he started lot of poppers. Patient presented with a headache and some visual field changes which resolved at this time. Patient had history of polysubstance abuse but he denies using any IV drugs in the past and patient was on Suboxone. Patient was also hypokalemic potassium was replaced. REVIEW OF SYSTEMS: CONSTITUTIONAL: No fever, no malaise, no fatigue. HEENT: No recent visual problems or hearing problems. Denied any sore throat. CARDIOVASCULAR: No chest pain, orthopnea, PND, no palpitations, no syncope. PULMONARY: No shortness of breath, no cough, no hemoptysis. GASTROINTESTINAL: No diarrhea, no nausea, no vomiting, no abdominal pain. NEUROLOGICAL: As mentioned above HEMATOLOGICAL: Denies any bleeding or petechiae. GENITOURINARY: Denies any burning micturition, frequency, or urgency. MUSCULOSKELETAL/RHEUMATOLOGICAL: Denies any joint pain, swelling, or any muscle pain. ENDOCRINE: Denies any polyuria or polydipsia. The rest of the 14-point review of systems is negative. PHYSICAL EXAMINATION: GENERAL: The patient is alert and oriented x3, not in any acute distress. Well developed, well nourished. HEENT: Pupils are round and equally reacting to light. EOMI. No scleral icterus. No conjunctival pallor. Normocephalic, atraumatic. No pharyngeal erythema. No thyromegaly. CARDIOVASCULAR: S1 and S2 present. No murmurs, rubs, or gallops. PULMONARY: Chest is clear to auscultation, no wheezing or crackles. ABDOMEN: Soft, nontender, nondistended, normoactive bowel sounds. No palpable organomegaly. MUSCULOSKELETAL: No joint swelling or deformity. EXTREMITIES: No cyanosis, clubbing, or pedal edema. Cyanosis resolved NEUROLOGICAL: Gross neurological examination did not reveal any focal deficits. SKIN: No rashes. Assessment and plan -Methemoglobenemia: Secondary to excess use of poppers that contained nitric oxide compounds which can cause methemoglobinemia. Improved now with the consulted oxygen 100% oxygen, patient will be discharged today counseling regarding use of these chemicals was provided -COPD without any acute exacerbation -seizure disorder -History of multiple drug abuse never used any IV drugs denied any history of hepatitis C -Hypokalemia: Potassium was replaced patient will be discharged today Patient Condition at Discharge: Stable Plan - Discharge Summary Discharge Rx Participant: No New Discharge Prescriptions: No Action Sertraline [Zoloft] 100 mg PO DAILY 15 Days tab metroNIDAZOLE 1% GEL [Metrogel 1%] 1 applic TOPICAL DAILY Emtricitabine/Tenofovir (Tdf) [Truvada 200 mg-300 mg Tablet] 1 tab PO DAILY ARIPiprazole [Abilify] 15 mg PO DAILY Discharge Medication List Sertraline [Zoloft] 100 mg PO DAILY 15 Days tab 12/04/21 [Rx] ARIPiprazole [Abilify] 15 mg PO DAILY 08/01/22 [History] Emtricitabine/Tenofovir (Tdf) [Truvada 200 mg-300 mg Tablet] 1 tab PO DAILY 08/01/22 [History] metroNIDAZOLE 1% GEL [Metrogel 1%] 1 applic TOPICAL DAILY 08/01/22 [History] Follow up Appointment(s)/Referral(s): Sandro Orr DO [Primary Care Provider] - 3 Days
--- NOTE | 2022-08-01 11:09 | P.HPIM ---
History of Present Illness 36-year-old male presented with the cyanosis, found to have methemoglobenemia with methemoglobin levels of around 15 now has come down to 0.5 with high flow concentrator oxygen. Patient admits to using nitric oxide and Amyl nitrate, containing compounds that his poppers rate patient says he started lot of poppers. Patient presented with a headache and some visual field changes which resolved at this time. Patient had history of polysubstance abuse but he denies using any IV drugs in the past and patient was on Suboxone. Patient was also hypokalemic potassium was replaced. REVIEW OF SYSTEMS: CONSTITUTIONAL: No fever, no malaise, no fatigue. HEENT: No recent visual problems or hearing problems. Denied any sore throat. CARDIOVASCULAR: No chest pain, orthopnea, PND, no palpitations, no syncope. PULMONARY: No shortness of breath, no cough, no hemoptysis. GASTROINTESTINAL: No diarrhea, no nausea, no vomiting, no abdominal pain. NEUROLOGICAL: As mentioned above HEMATOLOGICAL: Denies any bleeding or petechiae. GENITOURINARY: Denies any burning micturition, frequency, or urgency. MUSCULOSKELETAL/RHEUMATOLOGICAL: Denies any joint pain, swelling, or any muscle pain. ENDOCRINE: Denies any polyuria or polydipsia. The rest of the 14-point review of systems is negative. PHYSICAL EXAMINATION: GENERAL: The patient is alert and oriented x3, not in any acute distress. Well developed, well nourished. HEENT: Pupils are round and equally reacting to light. EOMI. No scleral icterus. No conjunctival pallor. Normocephalic, atraumatic. No pharyngeal erythema. No thyromegaly. CARDIOVASCULAR: S1 and S2 present. No murmurs, rubs, or gallops. PULMONARY: Chest is clear to auscultation, no wheezing or crackles. ABDOMEN: Soft, nontender, nondistended, normoactive bowel sounds. No palpable organomegaly. MUSCULOSKELETAL: No joint swelling or deformity. EXTREMITIES: No cyanosis, clubbing, or pedal edema. Cyanosis resolved NEUROLOGICAL: Gross neurological examination did not reveal any focal deficits. SKIN: No rashes. Assessment and plan -Methemoglobenemia: Secondary to excess use of poppers that contained nitric oxide compounds which can cause methemoglobinemia. Improved now with the consulted oxygen 100% oxygen, patient will be discharged today counseling regarding use of these chemicals was provided -COPD without any acute exacerbation -seizure disorder -History of multiple drug abuse never used any IV drugs denied any history of hepatitis C -Hypokalemia: Potassium was replaced patient will be discharged today Past Medical History Past Medical History: COPD, Seizure Disorder Additional Past Medical History / Comment(s): scabies History of Any Multi-Drug Resistant Organisms: None Reported Past Surgical History: Ear Surgery Additional Past Surgical History / Comment(s): ear tubes Past Anesthesia/Blood Transfusion Reactions: No Reported Reaction Past Psychological History: Anxiety, Bipolar, Depression, Schizophrenia Additional Psychological History / Comment(s): Pt resides with his mother. He does not drive, he uses the bus. He goes to [facility] and they manage his meds. Pt states he has past history of overdose and was intubated/[place]. time. Smoking Status: Current every day smoker Past Alcohol Use History: None Reported Additional Past Alcohol Use History / Comment(s): Pt started smoking in 2003 and is a 1.5 ppd smoker. Past Drug Use History: Cocaine, Marijuana Additional Drug Use History / Comment(s): Pt states he smokes marijuana, varying amounts, daily. Pt has used opiods in the past but none for 4 yrs. Pt uses cocaine and last used 6 months ago. - Past Family History Mother Family Medical History: Hypertension, Thyroid Disorder Father Family Medical History: COPD, Diabetes Mellitus, Hypertension Brother(s) Family Medical History: No Reported History Sister(s) Family Medical History: Hyperlipidemia Medications and Allergies Home Medications Medication Instructions Recorded Confirmed Type Sertraline [Zoloft] 100 mg PO DAILY 15 Days tab 12/04/21 08/01/22 Rx ARIPiprazole [Abilify] 15 mg PO DAILY 08/01/22 08/01/22 History Emtricitabine/Tenofovir (Tdf) 1 tab PO DAILY 08/01/22 08/01/22 History [Truvada 200 mg-300 mg Tablet] metroNIDAZOLE 1% GEL [Metrogel 1%] 1 applic TOPICAL DAILY 08/01/22 08/01/22 H istory Allergies Allergy/AdvReac Type Severity Reaction Status Date / Time bupropion HCl Allergy Rash/Hives Verified 08/01/22 07:05 [From Wellbutrin] nitrofurantoin Allergy Unknown Verified 08/01/22 07:05 [From Macrobid] Sulfa (Sulfonamide Allergy Rash/Hives Verified 08/01/22 07:05 Antibiotics) sulfamethoxazole Allergy Unknown Verified 08/01/22 07:05 [From Bactrim] trimethoprim [From Bactrim] Allergy Unknown Verified 08/01/22 07:05 Physical Exam Vitals: Vital Signs Temp Pulse Pulse Resp BP BP Pulse Ox 08/01/22 10:21 62 18 98 08/01/22 09:31 97.6 F 69 16 102/66 96 08/01/22 09:00 96 08/01/22 08:00 95 08/01/22 07:00 95 08/01/22 06:00 56 L 18 118/75 98 08/01/22 05:46 65 20 08/01/22 05:37 65 20 121/73 97 08/01/22 03:00 63 18 106/65 93 L 08/01/22 02:00 79 20 112/69 92 L 08/01/22 01:28 91 L 08/01/22 01:12 16 93 L 08/01/22 01:10 16 90 L 08/01/22 00:50 98.1 F 83 18 132/83 95 Intake and Output 07/31/22 08/01/22 08/01/22 22:59 06:59 14:59 Other: Weight 83.915 kg Results CBC & Chem 7: 08/01/22 01:25 08/01/22 01:25 Labs: Abnormal Lab Results - Last 24 Hours (Table) 08/01/22 08/01/22 08/01/22 Range/Units 01:25 01:25 04:12 Methemoglobin 15.1 H 6.6 H (0.0-1.5) % Potassium 3.1 L (3.5-5.1) mmol/L Glucose 114 H (74-99) mg/dL 08/01/22 Range/Units 05:44 Methemoglobin 2.5 H (0.0-1.5) % Potassium (3.5-5.1) mmol/L Glucose (74-99) mg/dL Thrombosis Risk Factor Assmnt - Choose All That Apply Any of the Below Risk Factors Present?: Yes
[2022-08-01 12:00] VITALS: BP 122/86; PULSE 70
== END 2022-08-01 17:07 | disposition home or self-care (01) | DRG 918 ==
LOC: EC 00:46 → 5NMEDONC 04:58
PROVIDERS: ADMIT Hospitalist; ATTEND Hospitalist
DX: T59.0X1A Toxic effect of nitrogen oxides, accidental (unintentional), initial encounter (principal); D74.8 Other methemoglobinemias; J44.9 Chronic obstructive pulmonary disease, unspecified; T46.3X1A Poisoning by coronary vasodilators, accidental (unintentional), initial encounter; F20.9 Schizophrenia, unspecified; F31.9 Bipolar disorder, unspecified; G40.909 Epilepsy, unspecified, not intractable, without status epilepticus; Z28.310 Unvaccinated for COVID-19; E87.6 Hypokalemia; F15.10 Other stimulant abuse, uncomplicated; F14.90 Cocaine use, unspecified, uncomplicated; F12.90 Cannabis use, unspecified, uncomplicated; F17.210 Nicotine dependence, cigarettes, uncomplicated; H53.9 Unspecified visual disturbance; Z79.899 Other long term (current) drug therapy; Z71.51 Drug abuse counseling and surveillance of drug abuser; Z71.6 Tobacco abuse counseling; Z88.2 Allergy status to sulfonamides; Z88.3 Allergy status to other anti-infective agents; Z88.8 Allergy status to other drugs, medicaments and biological substances
CPT/HCPCS: 36415; 71046; 80053; 80320; 83050; 83735; 84484; 85025; 85379; 85610; 85730; 93005; 99285; 99406

== ENCOUNTER 2022-10-09 18:56 | Inpatient (IN) | payer MEDICARE, MEDICAID ==
[2022-10-09] MEDS ORDERED: MAG HYDROX/AL HYDROX/SIMETH 30 ML CUP PO PRN (22:35)
[2022-10-09] MEDS ORDERED: MAGNESIUM HYDROXIDE 2,400 MG/30 ML CUP PO PRN (22:35)
[2022-10-09] MEDS ORDERED: ACETAMINOPHEN TAB 325 MG TAB PO PRN (22:35)
[2022-10-09] MEDS ORDERED: hydrOXYzine HCL 50 MG/ML 1 ML VIAL IM PRN (22:38)
[2022-10-09] MEDS ORDERED: OLANZapine 5 MG TAB PO PRN (22:38)
[2022-10-09] MEDS ORDERED: OLANZapine 10 MG VIAL IM PRN (22:38)
--- NOTE | 2022-10-09 23:41 | ED ---
Psych HPI - General Chief Complaint: Psychiatric Symptoms Stated Complaint: Mental Health Time Seen by Provider: 10/09/22 19:15 Source: patient Mode of arrival: ambulatory - History of Present Illness Initial Comments: 36-year-old male with major depressive disorder, polysubstance abuse who presents to the emergency department stating that he is suicidal. Patient originally brought himself into the emergency department under the direction of his therapist. She was concerned the patient was increasingly depressed with thoughts of suicide. Patient did come into the emergency department however became acutely aggressive. He was threatening staff and damaging property. Patient did leave and police were called to retrieve the patient. Patient went to the water and threw himself into the river. He was refusing to come out. It did take police to extricate the patient from the water. States that he purposely put himself in the water in an attempt to harm himself. Does admit to history of psychiatric disorder. Takes medications and sees a therapist however states his symptoms have not been controlled. He denies any injuries currently. No drug use. Patient is not intoxicated - Related Data Home Medications Medication Instructions Recorded Confirmed Emtricitabine/Tenofovir (Tdf) 1 tab PO DAILY 08/01/22 10/09/22 [Truvada 200 mg-300 mg Tablet] ARIPiprazole [Abilify Maintena] 400 mg IM Q30D 10/09/22 10/09/22 Buprenorphine HCl/Naloxone HCl 1 film SL DAILY 10/09/22 10/09/22 [Buprenorphine-Nalox 4-1Mg Film] Sertraline [Zoloft] 150 mg PO DAILY 10/09/22 10/09/22 Allergies Allergy/AdvReac Type Severity Reaction Status Date / Time bupropion HCl Allergy Rash/Hives Verified 10/09/22 21:40 [From Wellbutrin] nitrofurantoin Allergy Unknown Verified 10/09/22 21:40 [From Macrobid] Sulfa (Sulfonamide Allergy Rash/Hives Verified 10/09/22 21:40 Antibiotics) sulfamethoxazole Allergy Unknown Verified 10/09/22 21:40 [From Bactrim] trimethoprim [From Bactrim] Allergy Unknown Verified 10/09/22 21:40 Review of Systems ROS Statement: Those systems with pertinent positive or pertinent negative responses have been documented in the HPI. ROS Other: All systems not noted in ROS Statement are negative. Past Medical History Past Medical History: COPD, Seizure Disorder Additional Past Medical History / Comment(s): scabies History of Any Multi-Drug Resistant Organisms: None Reported Past Surgical History: Ear Surgery Additional Past Surgical History / Comment(s): ear tubes Past Anesthesia/Blood Transfusion Reactions: No Reported Reaction Past Psychological History: Anxiety, Bipolar, Depression, Schizophrenia Additional Psychological History / Comment(s): Pt resides with his mother. He does not drive, he uses the bus. He goes to [facility] and they manage his meds. Pt states he has past history of overdose and was intubated/[facility]. Smoking Status: Current every day smoker Past Alcohol Use History: None Reported Additional Past Alcohol Use History / Comment(s): Pt started smoking in 2003 and is a 1.5 ppd smoker. Past Drug Use History: Cocaine, Marijuana, Methamphetamine Additional Drug Use History / Comment(s): Pt states he smokes marijuana, varying amounts, daily. Pt has used opiods in the past but none for 4 yrs. Pt uses cocaine and last used 6 months ago. Pt admits to meth use 10/06/22 - Past Family History Mother Family Medical History: Hypertension, Thyroid Disorder Father Family Medical History: COPD, Diabetes Mellitus, Hypertension Brother(s) Family Medical History: No Reported History Sister(s) Family Medical History: Hyperlipidemia General Exam Limitations: no limitations General appearance: alert, in no apparent distress Head exam: Present: atraumatic, normocephalic, normal inspection Eye exam: Present: normal appearance, PERRL, EOMI. Absent: scleral icterus, conjunctival injection, periorbital swelling ENT exam: Present: normal exam, mucous membranes moist Neck exam: Present: normal inspection. Absent: tenderness, meningismus, lymphadenopathy Respiratory exam: Present: normal lung sounds bilaterally. Absent: respiratory distress, wheezes, rales, rhonchi, stridor Cardiovascular Exam: Present: regular rate, normal rhythm, normal heart sounds. Absent: systolic murmur, diastolic murmur, rubs, gallop, clicks GI/Abdominal exam: Present: soft, normal bowel sounds. Absent: distended, tenderness, guarding, rebound, rigid Extremities exam: Present: normal inspection, full ROM, normal capillary refill. Absent: tenderness, pedal edema, joint swelling, calf tenderness Back exam: Present: normal inspection Neurological exam: Present: alert, oriented X3, CN II-XII intact Psychiatric exam: Present: flat affect, suicidal ideation Skin exam: Present: warm, dry, intact, normal color. Absent: rash Course Vital Signs 10/09/22 10/09/22 10/09/22 19:10 19:54 22:47 Temperature 98.2 F 98.9 F 98.9 F Pulse Rate 69 82 64 Respiratory 18 16 16 Rate Blood Pressure 121/81 133/89 103/64 O2 Sat by Pulse 96 98 99 Oximetry Medical Decision Making - Medical Decision Making Was pt. sent in by a medical professional or institution (, PA, INTEGRITY SPECIALIST, urgent care, hospital, or correction...) When possible be specific @ -No Did you speak to anyone other than the patient for history (EMS, parent, family, police, friend...)? What history was obtained from this source @ -Spoke with police for history Did you review nursing and triage notes (agree or disagree)? Why? @ -I reviewed and agree with nursing and triage notes Were old charts reviewed (outside hosp., previous admission, EMS record, old EKG, old radiological studies, urgent care reports/EKG's, correction records)? Report findings @ -I reviewed patient's previous admission to [facility]. Differential Diagnosis (chest pain, altered mental status, abdominal pain women, abdominal pain men, vaginal bleeding, weakness, fever, dyspnea, syncope, headache, dizziness, GI bleed, back pain, seizure, CVA, palpatations, mental health, musculoskeletal)? @ Differential Mental Health Depression, anxiety, bipolar, psychosis, schizophrenia, borderline personality, situational depression, adjustment disorder, behavioral disorder, brain tumor, malingering, substance abuse, encephalopathy, medication reaction, dementia, hypothyroidism, degenerative neurologic disorder, lupus.... This is not meant to be all-inclusive list EKG interpreted by me (3pts min.). @ -None done X-rays interpreted by me (1pt min.). @ -None done CT interpreted by me (1pt min.). @ -None done U/S interpreted by me (1pt. min.). @ -None done What testing was considered but not performed or refused? (CT, X-rays, U/S, labs)? Why? @ -None What meds were considered but not given or refused? Why? @ -None Did you discuss the management of the patient with other professionals (professionals i.e. , PA, INTEGRITY SPECIALIST, lab, RT, psych nurse, social worker psychiatric, fugitive investigator, teacher, biological technical officer, egg caser)? Give summary @ -Spoke with the EPS nurse Was smoking cessation discussed for >3mins.? @ -No Was critical care preformed (if so, how long)? @ -No Were there social determinants of health that impacted care today? How? (Homelessness, low income, unemployed, alcoholism, drug addiction, transportation, low edu. Level, literacy, decrease access to med. care, group home, rehab)? @ -No Was there de-escalation of care discussed even if they declined (Discuss DNR or withdrawal of care, Hospice)? DNR status @ -No What co-morbidities impacted this encounter? (DM, HTN, Smoking, COPD, CAD, Cancer, CVA, ARF, Chemo, Hep., AIDS, mental health diagnosis, sleep apnea, morbid obesity)? @ -Major depressive Was patient admitted / discharged? Hospital course, mention meds given and route, prescriptions, significant lab abnormalities, going to OR and other pertinent info. @ -Upon arrival the patient was evaluated in room 13. He is admitted to a suicide attempt. He was evaluated by EPS who feels that the patient needs to be admitted. I did fill out a certification on the patient. He isn't transferred before in stable condition Undiagnosed new problem with uncertain prognosis? @ -No Drug Therapy requiring intensive monitoring for toxicity (Heparin, Nitro, Insulin, Cardizem)? @ -No Were any procedures done? @ -No Diagnosis/symptom? @ -Acute suicide attempt, depression Acute, or Chronic, or Acute on Chronic? @ -Acute Uncomplicated (without systemic symptoms) or Complicated (systemic symptoms)? @ -Complicated Side effects of treatment? @ -No Exacerbation, Progression, or Severe Exacerbation? @ -No Poses a threat to life or bodily function? How? (Chest pain, [place], [place], pneumonia, PE, COPD, DKA, ARF, appy, cholecystitis, CVA, Diverticulitis, Homicidal, Suicidal, threat to staff... and all critical care pts) @ -Yes patient actively tried to harm himself - Lab Data Lab Results 08/22/23 Range/Units 21:12 Coronavirus (PCR) Not Detected (Not Detectd) Disposition Clinical Impression: Suicidal thoughts, Suicidal behavior, Depression Disposition: TRANSFER TO PSYCH HOSP/UNIT Condition: Stable Is patient prescribed a controlled substance at d/c from ED?: No
[2022-10-09 23:48] LABS: Amphetamine Screen,Urine Detected (NotDetected); Barbiturate Screen,Urine Not Detected (NotDetected); Benzodiazepines Screen,Urine Not Detected (NotDetected); Cocaine Screen,Urine Not Detected (NotDetected); Methadone Screen, Urine Not Detected (NotDetected); Opiate Screen,Urine Not Detected (NotDetected); Oxycodone Screen, Urine Not Detected (NotDetected); Phencyclidine Screen,Urine Not Detected (NotDetected); Tricyclic Antidepressant,Urine Not Detected (NotDetected); Urn Cannabinoid Scrn Detected (NotDetected)
--- NOTE | 2022-10-10 06:12 | P.MDCNMH ---
History of Present Illness H&P Date: 10/10/22 Chief Complaint: Medical evaluation 36-year-old male with depression Patient coming into the ED for evaluation due to suicidal ideation, in the ED he became aggressive starting threatening staff and damaging properties. He decided to leave the hospital however police was called and brought him back as initially when he was sent and was upon recommendation of his therapist due to increased depression and suicidal ideation. ED documentation shows that the patient did throw himself into the river and was refusing to come out police has retrieved him from the water The patient currently denies any medical concerns , denies any fever, chills, cough, sore throat, chest pain , trouble breathing , nausea , vomiting, abd pain , changes in urinary or bowel habits. p patient admits to tobacco smoking marijuana and occasional alcohol review of systems Pertinent positives as noted in HPI. All other systems were reviewed and are negative on exam Constitutional: No acute distress Eyes: Anicteric sclerae, moist conjunctiva, Pupils equal round reactive to light Lungs: Clear to auscultation Clear to percussion Normal respiratory effort, no accessory muscle use Cardiovascular: Heart regular in rate and rhythm, No murmurs, gallops, or rubs No peripheral edema Abdominal: Soft Nontender, no guarding, rebound or rigidity Abdomen moving with respiration Normoactive bowel sounds Extremities: Erythema with sunburn effect over bilateral upper extremity in her lower extremity No clubbing Pedal pulses intact and symmetrical Radial pulses intact and symmetrical No calf tenderness Psychiatric: Alert and oriented to person, place and time Neuro Muscles Strength 5/5 in all 4 extremities Sensation to light touch grossly present throughout Past Medical History Past Medical History: COPD, Seizure Disorder Additional Past Medical History / Comment(s): scabies History of Any Multi-Drug Resistant Organisms: None Reported Past Surgical History: Ear Surgery Additional Past Surgical History / Comment(s): ear tubes Past Anesthesia/Blood Transfusion Reactions: No Reported Reaction Past Psychological History: Anxiety, Bipolar, Depression, Schizophrenia Additional Psychological History / Comment(s): Pt resides with his mother. He does not drive, he uses the bus. He goes to [facility] and they manage his meds. Pt states he has past history of overdose and was intubated/[facility]. Smoking Status: Current every day smoker Past Alcohol Use History: None Reported Additional Past Alcohol Use History / Comment(s): Pt started smoking in 2003 and is a 1.5 ppd smoker. Past Drug Use History: Cocaine, Marijuana, Methamphetamine Additional Drug Use History / Comment(s): Pt states he smokes marijuana, varying amounts, daily. Pt has used opiods in the past but none for 4 yrs. Pt uses cocaine and last used 6 months ago. Pt admits to meth use 10/06/22 - Past Family History Mother Family Medical History: Hypertension, Thyroid Disorder Father Family Medical History: COPD, Diabetes Mellitus, Hypertension Brother(s) Family Medical History: No Reported History Sister(s) Family Medical History: Hyperlipidemia Medications and Allergies Home Medications Medication Instructions Recorded Confirmed Type Emtricitabine/Tenofovir (Tdf) 1 tab PO DAILY 08/01/22 10/09/22 History [Truvada 200 mg-300 mg Tablet] ARIPiprazole [Abilify Maintena] 400 mg IM Q30D 10/09/22 10/09/22 History Buprenorphine HCl/Naloxone HCl 1 film SL DAILY 10/09/22 10/09/22 History [Buprenorphine-Nalox 4-1Mg Film] Sertraline [Zoloft] 150 mg PO DAILY 10/09/22 10/09/22 History Allergies Allergy/AdvReac Type Severity Reaction Status Date / Time bupropion HCl Allergy Rash/Hives Verified 10/09/22 21:40 [From Wellbutrin] nitrofurantoin Allergy Unknown Verified 10/09/22 21:40 [From Macrobid] Sulfa (Sulfonamide Allergy Rash/Hives Verified 10/09/22 21:40 Antibiotics) sulfamethoxazole Allergy Unknown Verified 10/09/22 21:40 [From Bactrim] trimethoprim [From Bactrim] Allergy Unknown Verified 10/09/22 21:40 Physical Exam Vitals: Vital Signs Temp Pulse Pulse Resp BP BP Pulse Ox 10/09/22 23:25 97.5 F L 75 16 118/76 95 10/09/22 22:47 98.9 F 64 16 103/64 99 10/09/22 19:54 98.9 F 82 16 133/89 98 10/09/22 19:10 98.2 F 69 18 121/81 96 Intake and Output 10/09/22 10/09/22 10/10/22 14:59 22:59 06:59 Other: Weight 81.647 kg 81.647 kg Cranial Nerve Examination - Cranial Nerves Cranial Nerve II- Optic: Intact Cranial Nerve III- Oculomotor: Intact Cranial Nerve IV- Trochlear: Intact Cranial Nerve V- Trigeminal: Intact Cranial Nerve - Abducens: Intact Cranial Nerve VII- Facial: Intact Cranial Nerve VIII- Auditory: Intact Cranial Nerve IX- Glossopharyngeal: Intact Cranial Nerve X- Vagus: Intact Cranial Nerve XI- Accessory: Intact Cranial Nerve XII- Hypoglossal: Intact Results Labs: Abnormal Lab Results - Last 24 Hours (Table) 10/09/22 Range/Units 22:00 Ur Amphetamines Screen Detected H (NotDetected) U Methamphetamines Scrn Detected H (NotDetected) U Marijuana (THC) Screen Detected H (NotDetected) Assessment and Plan Assessment: Depression and suicidal ideation Management per psych Polysubstance abuse Patient counseled to avoid drug of abuse Urine drug screen tested positive for methamphetamine and marijuana Tobacco smoking Counseled to quit smoking Nicotine replacement therapy offered Labs still pending Thank you for this consultation
[2022-10-10] MEDS ORDERED: SERTRALINE 50 MG TAB PO SCH (09:00)
[2022-10-10] MEDS ORDERED: BUPRENORPHINE HCL SUBLINGUAL SCH (09:00)
[2022-10-10] MEDS ORDERED: [UNRECOGNIZED DRUG - OTHER] SUBLINGUAL SCH (09:00)
[2022-10-10] MEDS ORDERED: NALOXONE HCL SUBLINGUAL SCH (09:00)
[2022-10-10] MEDS: NICOTINE 14MG/24HR PATCH TRANSDERM SCH (09:38)
[2022-10-10] MEDS: EMTRICITABINE/TENOFOVIR 200MG/300MG PO SCH (09:38)
--- NOTE | 2022-10-10 12:05 | P.HP ---
Psychiatric H&P - . H&P Date: 10/10/22 History & Physical: Allergies Allergy/AdvReac Type Severity Reaction Status Date / Time bupropion HCl Allergy Rash/Hives Verified 10/09/22 21:40 [From Wellbutrin] nitrofurantoin Allergy Unknown Verified 10/09/22 21:40 [From Macrobid] Sulfa (Sulfonamide Allergy Rash/Hives Verified 10/09/22 21:40 Antibiotics) sulfamethoxazole Allergy Unknown Verified 10/09/22 21:40 [From Bactrim] trimethoprim [From Bactrim] Allergy Unknown Verified 10/09/22 21:40 Vital Signs Temp 97.5 F L 10/09/22 23:25 Pulse 95 10/10/22 09:41 Resp 16 10/09/22 23:25 BP 112/72 10/10/22 09:41 Pulse Ox 95 10/09/22 23:25 FiO2 Intake & Output 10/09/22 10/10/22 10/10/22 18:59 06:59 18:59 Weight 81.647 kg Laboratory Last Values Urine Opiates Screen Not Detected (NotDetected) 10/09/22 22:00 Ur Oxycodone Screen Not Detected (NotDetected) 10/09/22 22:00 Urine Methadone Screen Not Detected (NotDetected) 10/09/22 22:00 Ur Propoxyphene Screen Not Detected (NotDetected) 10/09/22 22:00 Ur Barbiturates Screen Not Detected (NotDetected) 10/09/22 22:00 U Tricyclic Antidepress Not Detected (NotDetected) 10/09/22 22:00 Ur Phencyclidine Scrn Not Detected (NotDetected) 10/09/22 22:00 Ur Amphetamines Screen Detected (NotDetected) H 10/09/22 22:00 U Methamphetamines Scrn Detected (NotDetected) H 10/09/22 22:00 U Benzodiazepines Scrn Not Detected (NotDetected) 10/09/22 22:00 Urine Cocaine Screen Not Detected (NotDetected) 10/09/22 22:00 U Marijuana (THC) Screen Detected (NotDetected) H 10/09/22 22:00 Coronavirus (PCR) Not Detected (Not Detectd) 10/09/22 21:12 10/10/22 12:05 IDENTIFYING DATA: Patient is a single, unemployed, on SSI, 36-year-old male with a significant history of polysubstance abuse and borderline personality disorder who presented to our hospital on 10/09/2022, brought in by police after a suicide attempt. HPI: Patient presented to the hospital on 10/09/2022 after an attempted suicide attempt. The patient was seen by his [facility] therapist Shanon on 10/09/2022 and was informed by him that he was going to go home and hang himself or use crack cocaine. He initially went to the emergency department at the recommendation of [facility] however got very irritable in the emergency room and walked out. He was later discovered by police attempting to jump into the river. He was petitioned by the [place] [employer]. He reported that he had a plan to hang himself. He did stress to the EPS nurse that he had suicidal thoughts and worsening depression. He also reported that he was experiencing auditory hallucinations. The patient did admit to substance abuse and did test positive for methamphetamines, amphetamines, and marijuana. Upon evaluation on the psychiatric unit, the patient does admit that he has been feeling increasingly depressed and suicidal. He reports that he has been dealing with numerous stressors, and particular with a romantic relationship he is in. He does report that he has been increasingly depressed over the past few weeks and endorses suicidal thoughts with multiple prior attempts at suicide. He also reports anhedonia, low mood, anxiety, hopelessness, helplessness, and decreased motivation and focus. He does not report any significant signs and symptoms of andra or hypomania at this time. He denies any periods of excessive energy, grandiosity, or increased goal-directed activity outside use substances. The patient does admit to experiencing auditory hallucinations. He reports that he believes that he heard his partner was sleeping with somebody else. However he was unable to confirm this. He also reports that he sometimes feels like he is able to hear his partner cheating on him. The patient does acknowledge that his substance use may be contributing to increased paranoia and hallucinations. He reports that he last used methamphetamines this past weekend. PAST PSYCHIATRIC HISTORY: Patient has previous diagnoses of polysubstance abuse and borderline personality disorder. Currently on a home regimen that includes Abilify maintena 400 mg IM which is due today. He is also taking Zoloft 150 mg daily. He was last hospitalized on our psychiatric unit in November 2021. He is currently open with [facility]. He reports multiple prior attempts at suicide. PMH: Past Medical History: COPD, Seizure Disorder Additional Past Medical History / Comment(s): scabies History of Any Multi-Drug Resistant Organisms: None Reported Past Surgical History: Ear Surgery Additional Past Surgical History / Comment(s): ear tubes Past Anesthesia/Blood Transfusion Reactions: No Reported Reaction Past Psychological History: Anxiety, Bipolar, Depression, Schizophrenia Additional Psychological History / Comment(s): Pt resides with his mother. He does not drive, he uses the bus. He goes to [facility] and they manage his meds. Pt states he has past history of overdose and was intubated/[facility] time. Smoking Status: Current every day smoker Past Alcohol Use History: None Reported Additional Past Alcohol Use History / Comment(s): Pt started smoking in 2003 and is a 1.5 ppd smoker. Past Drug Use History: Cocaine, Marijuana, Methamphetamine Additional Drug Use History / Comment(s): Pt states he smokes marijuana, varying amounts, daily. Pt has used opiods in the past but none for 4 yrs. Pt uses cocaine and last used 6 months ago. Pt admits to meth use 10/06/22 ALLERGIES: Allergies Allergy/AdvReac Type Severity Reaction Status Date / Time bupropion HCl Allergy Rash/Hives Verified 10/09/22 21:40 [From Wellbutrin] nitrofurantoin Allergy Unknown Verified 10/09/22 21:40 [From Macrobid] Sulfa (Sulfonamide Allergy Rash/Hives Verified 10/09/22 21:40 Antibiotics) sulfamethoxazole Allergy Unknown Verified 10/09/22 21:40 [From Bactrim] trimethoprim [From Bactrim] Allergy Unknown Verified 10/09/22 21:40 CHEMICAL DEPENDENCY HISTORY: The patient reports he smokes approximately 1 pack per day of tobacco. He is currently prescribed Suboxone. He admits to daily marijuana use. He reports methamphetamine abuse. FAMILY PSYCHIATRIC/SUBSTANCE USE HISTORY: No reported family psychiatric history. SOCIAL HISTORY: yasemin was born and raised in [place], [place]. He graduated high school. He receives Social Security. He is currently staying with his parents. He reports that he has no children. MENTAL STATUS EXAM: General Appearance: Patient appears to be stated age is alert, directable, and attempts to cooperate. Patient appears to have slightly disheveled hygiene and grooming. Behavior: Patient is seated without any agitated behavior. Speech: Patient's speech is fluent and nonpressured. Monotone. Low in volume. Mood/Affect: Patient reports their mood is depressed, affect is congruent and withdrawn. Suicidality/Homicidality: Patient reports suicidal ideation. He denies any homicidal ideation. Perceptions: Patient denies any visual hallucinations and denies any auditory hallucinations Though content/process: There is no evidence of any delusional thought content and thought process is linear and goal-directed. Memory and concentration: AOX3, grossly intact for the purposes of this session. Can spell "WORLD" backwards Judgment and insight: poor STRENGTHS/WEAKNESSES: Strength is that the patient is resilient. Weakness is that the patient abuses multiple substances. INTELLECT: average IMPRESSIONS: Adjustment disorder, with mixed disturbance of emotion and conduct Polysubstance use disorder Methamphetamine use disorder Borderline personality disorder Posttraumatic stress disorder Nicotine dependence PLAN: -Patient is admitted under involuntary but converted to voluntary status to MHU for stabilization of psychiatric symptoms and safety. Patient signed adult voluntary form and medication consent and is placed in patient's chart. -Medications : Will start patient on Trileptal 150 mg by mouth twice a day for off label mood stabilization Zoloft 200 mg by mouth daily for depression/anxiety/PTSD Abilify maintena 400 mg IM will be administered tomorrow. -Zyprexa and Vistaril PRN for agitation/aggression -Patient was counselled on substance abuse and desired to cut back on use -Patient was informed of the risks, benefits and side effects of the medication and patient verbally consented to taking the medications. Patient signed med consent form and was placed in chart. -Internal Medicine consult to perform medical evaluation and physical. -NRT - nicotine patch -SW on board for discharge planning. Encourage patient to participate in groups to work on coping skills. 10/10/22 12:05
[2022-10-10] MEDS: OXcarbazepine 150 MG TAB PO SCH (21:20)
--- NOTE | 2022-10-11 00:07 | ED ---
Medical Decision Making - Lab Data Lab Results 10/09/22 10/09/22 Range/Units 21:12 22:00 Urine Opiates Screen Not Detected (NotDetected) Ur Oxycodone Screen Not Detected (NotDetected) Urine Methadone Screen Not Detected (NotDetected) Ur Propoxyphene Screen Not Detected (NotDetected) Ur Barbiturates Screen Not Detected (NotDetected) U Tricyclic Antidepress Not Detected (NotDetected) Ur Phencyclidine Scrn Not Detected (NotDetected) Ur Amphetamines Screen Detected H (NotDetected) U Methamphetamines Scrn Detected H (NotDetected) U Benzodiazepines Scrn Not Detected (NotDetected) Urine Cocaine Screen Not Detected (NotDetected) U Marijuana (THC) Screen Detected H (NotDetected) Coronavirus (PCR) Not Detected (Not Detectd) Disposition Clinical Impression: Suicidal thoughts, Suicidal behavior, Depression Disposition: TRANSFER TO PSYCH HOSP/UNIT Condition: Stable Is patient prescribed a controlled substance at d/c from ED?: No Procedures - Restraint - Face to Face Restraint Occurrence 1 Patient's Immediate Situation: Endangers self safety, Endangers others' safety Patient's Reaction to the Intervention: Uncooperative, Angry, Combative Patient's Medical & Behavioral Condition: Awake, Alert, Agitated, Suicidal thoughts Need to Continue or Terminate Restraint or Seclusion: Continue Face to Face Eval of Restraint Date: 10/10/22 Face to Face Eval of Restraint Time: 19:50
[2022-10-11] MEDS ORDERED: NALOXONE HCL SUBLINGUAL SCH (09:00)
[2022-10-11] MEDS ORDERED: [UNRECOGNIZED DRUG - OTHER] SUBLINGUAL SCH (09:00)
[2022-10-11] MEDS ORDERED: ARIPiprazole IM SYRINGE 400 MG (NO CHARGE) PHARMACY STOCK IM SCH (09:00)
[2022-10-11] MEDS ORDERED: BUPRENORPHINE HCL SUBLINGUAL SCH (09:00)
[2022-10-11] MEDS: BUPRENORPHINE HCL SUBLINGUAL SCH (10:13)
[2022-10-11] MEDS: EMTRICITABINE/TENOFOVIR 200MG/300MG PO SCH (10:13)
[2022-10-11] MEDS: NALOXONE HCL SUBLINGUAL SCH (10:13)
[2022-10-11] MEDS: [UNRECOGNIZED DRUG - OTHER] SUBLINGUAL SCH (10:13)
[2022-10-11] MEDS: OXcarbazepine 150 MG TAB PO SCH ×2 (10:13→20:26)
[2022-10-11] MEDS: SERTRALINE 100 MG TAB PO SCH (10:13)
[2022-10-11] MEDS: NICOTINE 14MG/24HR PATCH TRANSDERM SCH ×2 (10:18→18:34)
--- NOTE | 2022-10-11 10:59 | P.PN ---
Progress Note - Text Progress Note Date: 10/11/22 Interval History: Patient was seen resting in bed and was directable and agreeable to speak with screenplay writer in the office. Currently, the patient is not reporting any auditory or visual hallucinations. He does report that he was experiencing suicidal thoughts yesterday. He remains primarily isolative to himself in his room. He reports low energy and poor sleep. He is otherwise reporting an overall improvement in regards to his target symptoms of depression. He rates his severity of his symptoms 5 out of 10 with 10 being very severe. He denies any paranoia or other delusions. He has been adherent with his medications and is not reporting any significant side effects. Mental Status Exam: General Appearance: Patient appears to be stated age is alert, directable, and cooperative. Behavior: Patient is calmly lying down in bed without any agitated behavior. Speech: Patient's speech is fluent and nonpressured. Mood/Affect: Mood is improving mildly, affect is congruent and constricted. Suicidality/Homicidality: Patient denies having any suicidal or homicidal ideation, intention, and/or plan. Perceptions: Patient denies any visual hallucinations and denies any auditory hallucinations Though content/process: There is no evidence of any delusional thought content and thought process is linear and goal-directed. Memory and concentration: AOX3, grossly intact for the purposes of this session Judgment and insight: Improving mildly Vital Signs Temp 98.5 F 10/11/22 06:34 Pulse 61 10/11/22 06:34 Resp 14 10/11/22 06:34 BP 115/59 10/11/22 06:34 Pulse Ox 95 10/09/22 23:25 FiO2 Assessment Adjustment disorder, with mixed disturbance of emotion and conduct Polysubstance use disorder Methamphetamine use disorder Borderline personality disorder Posttraumatic stress disorder Nicotine dependence Plan: -Patient continues to meet criteria for inpatient psychiatric admission for symptom stabilization and safety. Patient has signed adult voluntary form and medication consent and was placed in patient's chart. -Medications: Trileptal 150 mg by mouth twice a day for off label mood stabilization Zoloft 200 mg by mouth daily for depression/anxiety/PTSD Abilify maintena 400 mg IM will be administered today. -When necessary Zyprexa and Vistaril for agitation/aggression. -NRT - nicotine patch -SW on board for discharge planning. Encouraged the patient to participate in milieu.
[2022-10-11] MEDS: hydrOXYzine pamoate 25 MG CAP PO PRN (18:34)
[2022-10-11] MEDS: NICOTINE 21MG/24HR PATCH TRANSDERM SCH (18:58)
[2022-10-12] MEDS: [UNRECOGNIZED DRUG - OTHER] SUBLINGUAL SCH (09:42)
[2022-10-12] MEDS: EMTRICITABINE/TENOFOVIR 200MG/300MG PO SCH (09:42)
[2022-10-12] MEDS: NALOXONE HCL SUBLINGUAL SCH (09:42)
[2022-10-12] MEDS: BUPRENORPHINE HCL SUBLINGUAL SCH (09:42)
[2022-10-12] MEDS: OXcarbazepine 150 MG TAB PO SCH ×2 (09:43→20:30)
[2022-10-12] MEDS: SERTRALINE 100 MG TAB PO SCH (09:43)
[2022-10-12] MEDS: NICOTINE 21MG/24HR PATCH TRANSDERM SCH (09:43)
--- NOTE | 2022-10-12 11:16 | P.PN ---
Progress Note - Text Progress Note Date: 10/12/22 Interval History: Patient was seen resting in bed and was directable and agreeable to speak with bond writer in the office. Patient is not reporting any suicidal or homicidal ideation, intention, he is and/or plan. He does report that yesterday he did experience some auditory hallucinations that were telling him to hurt himself. He did receive his Abilify maintena yesterday. He is not reporting any significant side effects. He reports no paranoia or other delusions. He does report that he has been expressing some weird dreams. He denies any issues regarding his sleep or his appetite. He reports no medical issues or concerns. Mental Status Exam: General Appearance: Patient appears to be stated age is alert, directable, and cooperative. Behavior: Patient is calmly lying down in bed without any agitated behavior. Speech: Patient's speech is fluent and nonpressured. Mood/Affect: Mood is improving mildly, affect is congruent and constricted. Suicidality/Homicidality: Patient denies having any suicidal or homicidal ideation, intention, and/or plan. Perceptions: Patient denies any visual hallucinations however he does endorse auditory hallucinations. Though content/process: There is no evidence of any delusional thought content and thought process is linear and goal-directed. Memory and concentration: AOX3, grossly intact for the purposes of this session Judgment and insight: Improving mildly Vital Signs Temp 98.5 F 10/11/22 06:34 Pulse 94 10/12/22 09:46 Resp 16 10/12/22 09:46 BP 115/80 10/12/22 09:46 Pulse Ox 95 10/09/22 23:25 FiO2 Assessment Adjustment disorder, with mixed disturbance of emotion and conduct Polysubstance use disorder Methamphetamine use disorder Borderline personality disorder Posttraumatic stress disorder Nicotine dependence Plan: -Patient continues to meet criteria for inpatient psychiatric admission for symptom stabilization and safety. Patient has signed adult voluntary form and medication consent and was placed in patient's chart. -Medications: Trileptal 150 mg by mouth twice a day for off label mood stabilization Zoloft 200 mg by mouth daily for depression/anxiety/PTSD Abilify maintena 400 mg IM will be administered on 10/11/2022 -When necessary Zyprexa and Vistaril for agitation/aggression. -NRT - nicotine patch -SW on board for discharge planning. Encouraged the patient to participate in milieu.
[2022-10-12] MEDS: hydrOXYzine pamoate 25 MG CAP PO PRN ×2 (13:27→20:57)
[2022-10-13] MEDS: SERTRALINE 100 MG TAB PO SCH (08:23)
[2022-10-13] MEDS: NICOTINE 21MG/24HR PATCH TRANSDERM SCH (08:23)
[2022-10-13] MEDS: OXcarbazepine 150 MG TAB PO SCH ×2 (08:24→20:49)
[2022-10-13] MEDS: EMTRICITABINE/TENOFOVIR 200MG/300MG PO SCH (08:24)
[2022-10-13] MEDS: BUPRENORPHINE HCL SUBLINGUAL SCH (08:34)
[2022-10-13] MEDS: [UNRECOGNIZED DRUG - OTHER] SUBLINGUAL SCH (08:34)
[2022-10-13] MEDS: NALOXONE HCL SUBLINGUAL SCH (08:34)
--- NOTE | 2022-10-13 12:11 | P.PN ---
Subjective Progress Note Date: 10/13/22 Principal diagnosis: Assessment Adjustment disorder, with mixed disturbance of emotion and conduct Polysubstance use disorder Methamphetamine use disorder Borderline personality disorder Posttraumatic stress disorder Nicotine dependence Patient Name: Krystian Shaw Date of : 87 Patient Status: Inpatient Attending Provider: Guero Casanova Date: 10/13/22 follow-up by Dr. Brian Mcclendon M.D. Interval History: Patient was seen resting in bed and was directable and agreeable to speak with ghost writer in the office. Patient is not reporting any suicidal or homicidal ideation, intention, he is and/or plan. The patient states that he is in the hospital because of'life I guess' He then admitted that he was using cannabis and occasionally methamphetamine but that he tries not to use the heavy-duty drugs that often He did receive his Abilify maintena yesterday. He is not reporting any significant side effects. He reports no paranoia or other delusions. He does report that he has been expressing some weird dreams. He denies any issues regarding his sleep or his appetite. He reports no medical issues or concerns. Mental Status Exam: General Appearance: Patient appears to be stated age is alert, directable, and cooperative. Behavior: Patient is calmly lying down in bed without any agitated behavior. Speech: Patient's speech is fluent and nonpressured. Mood/Affect: Mood is improving mildly, affect is congruent and constricted. Suicidality/Homicidality: Patient denies having any suicidal or homicidal ideation, intention, and/or plan. Perceptions: Patient denies any visual hallucinations however he does endorse auditory hallucinations. Though content/process: There is no evidence of any delusional thought content and thought process is linear and goal-directed. Memory and concentration: AOX3, grossly intact for the purposes of this session Judgment and insight: Improving mildly Assessment Adjustment disorder, with mixed disturbance of emotion and conduct Polysubstance use disorder Methamphetamine use disorder Borderline personality disorder Posttraumatic stress disorder Nicotine dependence Plan: -Patient continues to meet criteria for inpatient psychiatric admission for symptom stabilization and safety. Patient has signed adult voluntary form and medication consent and was placed in patient's chart. -Medications: Trileptal 150 mg by mouth twice a day for off label mood stabilization Zoloft 200 mg by mouth daily for depression/anxiety/PTSD Abilify maintena 400 mg IM will be administered on 10/11/2022 -When necessary Zyprexa and Vistaril for agitation/aggression. -NRT - nicotine patch -SW on board for discharge planning. Encouraged the patient to participate in milieu. Brian Mcclendon M.D. 10/13/2022 Objective - Vital Signs Vital signs: Vital Signs Temp 97.9 F 10/13/22 07:06 Pulse 60 10/13/22 07:06 Resp 17 10/13/22 07:06 BP 88/50 10/13/22 07:06 Pulse Ox 96 10/13/22 07:06 FiO2
[2022-10-13] MEDS: hydrOXYzine pamoate 25 MG CAP PO PRN ×2 (12:22→20:50)
[2022-10-14 07:10] VITALS: RESP 14
[2022-10-14] MEDS: EMTRICITABINE/TENOFOVIR 200MG/300MG PO SCH (08:57)
[2022-10-14] MEDS: SERTRALINE 100 MG TAB PO SCH (08:57)
[2022-10-14] MEDS: NALOXONE HCL SUBLINGUAL SCH (08:58)
[2022-10-14] MEDS: [UNRECOGNIZED DRUG - OTHER] SUBLINGUAL SCH (08:58)
[2022-10-14] MEDS: NICOTINE 21MG/24HR PATCH TRANSDERM SCH (08:58)
[2022-10-14] MEDS: BUPRENORPHINE HCL SUBLINGUAL SCH (08:58)
[2022-10-14] MEDS: OXcarbazepine 150 MG TAB PO SCH ×2 (08:58→20:38)
--- NOTE | 2022-10-14 09:59 | P.PN ---
Subjective Progress Note Date: 10/14/22 Principal diagnosis: Assessment Adjustment disorder, with mixed disturbance of emotion and conduct Polysubstance use disorder Methamphetamine use disorder Borderline personality disorder Posttraumatic stress disorder Nicotine dependence Patient Name: Krystian Shaw Date of : 87 Patient Status: Inpatient Attending Provider: Guero Casanova Date: 10/14/22 follow-up by Dr. Brian Mcclendon M.D. Interval History: Patient was seen resting in bed and was directable and agreeable to speak with telegraphic typewriter installer in the office. Patient is not reporting any suicidal or homicidal ideation, intention, he is and/or plan. The patient reports that he has been sleeping better He says that his thoughts are more organized He states that he is not expressing any racing thoughts He denies any side effects from his current medication He reports no paranoia or other delusions. He does report that he has been expressing some weird dreams. He denies any issues regarding his sleep or his appetite. He reports no medical issues or concerns. Mental Status Exam: General Appearance: Patient appears to be stated age is alert, directable, and cooperative. Behavior: Patient is calmly lying down in bed without any agitated behavior. Speech: Patient's speech is fluent and nonpressured. Mood/Affect: Mood is improving mildly, affect is congruent and constricted. Suicidality/Homicidality: Patient denies having any suicidal or homicidal ideation, intention, and/or plan. Perceptions: Patient denies any visual hallucinations however he does endorse auditory hallucinations. Though content/process: There is no evidence of any delusional thought content and thought process is linear and goal-directed. Memory and concentration: AOX3, grossly intact for the purposes of this session Judgment and insight: Improving mildly Assessment Adjustment disorder, with mixed disturbance of emotion and conduct Polysubstance use disorder Methamphetamine use disorder Borderline personality disorder Posttraumatic stress disorder Nicotine dependence Plan: -Patient continues to meet criteria for inpatient psychiatric admission for symptom stabilization and safety. Patient has signed adult voluntary form and medication consent and was placed in patient's chart. -Medications: Trileptal 150 mg by mouth twice a day for off label mood stabilization Zoloft 200 mg by mouth daily for depression/anxiety/PTSD Abilify maintena 400 mg IM will be administered on 10/11/2022 -When necessary Zyprexa and Vistaril for agitation/aggression. -NRT - nicotine patch -SW on board for discharge planning. Encouraged the patient to participate in milieu. Brian Mcclendon M.D. 10/14/2022 Objective - Vital Signs Vital signs: Vital Signs Temp 97.3 F L 10/14/22 06:38 Pulse 57 L 10/14/22 06:38 Resp 14 10/14/22 06:38 BP 99/55 10/14/22 06:38 Pulse Ox 96 10/13/22 07:06 FiO2
[2022-10-14] MEDS: hydrOXYzine pamoate 25 MG CAP PO PRN ×2 (12:24→20:39)
[2022-10-15 07:13] VITALS: BP 109/60; PULSE 63; TEMP 98.2
[2022-10-15] MEDS: SERTRALINE 100 MG TAB PO SCH (08:20)
[2022-10-15] MEDS: OXcarbazepine 150 MG TAB PO SCH (08:20)
[2022-10-15] MEDS: EMTRICITABINE/TENOFOVIR 200MG/300MG PO SCH (08:20)
[2022-10-15] MEDS: NICOTINE 21MG/24HR PATCH TRANSDERM SCH (08:20)
[2022-10-15] MEDS: BUPRENORPHINE HCL SUBLINGUAL SCH (09:51)
[2022-10-15] MEDS: NALOXONE HCL SUBLINGUAL SCH (09:51)
[2022-10-15] MEDS: [UNRECOGNIZED DRUG - OTHER] SUBLINGUAL SCH (09:51)
--- NOTE | 2022-10-15 11:41 | P.DS ---
Providers Date of admission: 10/09/22 22:33 Expected date of discharge: 10/15/22 Attending physician: Guero Casanova MD Consults: 10/09/22 22:35 Consult Physician Routine Consulting Provider: [facility] Consult Reason/Comments: H&P Do you want consulting provider notified?: Yes Primary care physician: Sandro Orr - Discharge Diagnosis(es) (1) Adjustment disorder with mixed disturbance of emotions and conduct Current Visit: Yes Status: Acute Priority: High (2) Methamphetamine use disorder, severe, dependence Current Visit: Yes Status: Acute Priority: High (3) Cannabis use disorder, moderate, dependence Current Visit: Yes Status: Chronic Priority: Medium (4) Borderline personality disorder Current Visit: Yes Status: Chronic Priority: Medium (5) PTSD (post-traumatic stress disorder) Current Visit: Yes Status: Chronic Priority: Medium (6) Nicotine dependence Current Visit: Yes Status: Chronic Priority: Low Hospital Course: Admission HPI: Patient is a single, unemployed, on SSI, 36-year-old male with a significant history of polysubstance abuse and borderline personality disorder who presented to our hospital on 10/09/2022, brought in by police after a suicide attempt. Patient presented to the hospital on 10/09/2022 after an attempted suicide attempt. The patient was seen by his [facility] therapist Shanon on 10/09/2022 and was informed by him that he was going to go home and hang himself or use crack cocaine. He initially went to the emergency department at the recommendation of [facility] however got very irritable in the emergency room and walked out. He was later discovered by police attempting to jump into the river. He was petitioned by the [place] [employer]. He reported that he had a plan to hang himself. He did stress to the EPS nurse that he had suicidal thoughts and worsening depression. He also reported that he was experiencing auditory hallucinations. The patient did admit to substance abuse and did test positive for methamphetamines, amphetamines, and marijuana. Upon evaluation on the psychiatric unit, the patient does admit that he has been feeling increasingly depressed and suicidal. He reports that he has been dealing with numerous stressors, and particular with a romantic relationship he is in. He does report that he has been increasingly depressed over the past few weeks and endorses suicidal thoughts with multiple prior attempts at suicide. He also reports anhedonia, low mood, anxiety, hopelessness, helplessness, and decreased motivation and focus. He does not report any significant signs and symptoms of andra or hypomania at this time. He denies any periods of excessive energy, grandiosity, or increased goal-directed activity outside use substances. The patient does admit to experiencing auditory hallucinations. He reports that he believes that he heard his partner was sleeping with somebody else. However he was unable to confirm this. He also reports that he sometimes feels like he is able to hear his partner cheating on him. The patient does acknowledge that his substance use may be contributing to increased paranoia and hallucinations. He reports that he last used methamphetamines this past weekend. Patient has previous diagnoses of polysubstance abuse and borderline personality disorder. Currently on a home regimen that includes Abilify maintena 400 mg IM which is due today. He is also taking Zoloft 150 mg daily. He was last hospitalized on our psychiatric unit in November 2021. He is currently open with [facility]. He reports multiple prior attempts at suicide. Hospital course: Upon admission to the unit patient was initially presenting as flat, withdrawn, depressed, and isolative to himself in his room. Patient was however directable and agreeable to commence treatment. Patient got along well with other patients on the unit and followed unit protocol. Patient was compliant with the medications and denied any side effects throughout hospital course. Patient was started on Trileptal for off label mood stabilization and Zoloft for depression/anxiety/PTSD. The patient did acknowledge that polysubstance abuse contributes to his problem however has been denying recent use despite inconsistencies in his history provided regarding his drug use. He did test positive for amphetamines and methamphetamines. The patient was also due for his Abilify maintena. He received 400 mg IM on 10/11/2022. Over the course of the hospitalization, the patient displayed gradual but significant improvement in regards to his target symptoms of mood, depression, suicidal thoughts. He became more future and goal oriented. However, this provider attempted to discuss the option of inpatient substance abuse rehabilitation to which the patient denied the need for. Patient spoke of his stressors and engaged in therapy both group and individual. Patient was also seen by medical team for history and physical exam. On the day of discharge, the patient is denying any suicidal or homicidal ideation, intention, and/or plan. He is not reporting any auditory or visual hallucinations. He denies any paranoia or other delusions. He reports no access to firearms or other weapons. He plans to return home back to his family. Patient endorsed wanting to live for his health and family. The patient does have a significant history of substance abuse and was counseled at great length on abstaining from all substances including alcohol, marijuana, tobacco, and all illicit drugs, especially methamphetamines. The patient was offered however declined inpatient substance-abuse rehabilitation. He has been adherent with his medications over the course of the hospitalization and reported no medical issues or concerns. He denied any chest pain, shortness of breath, palpitations, akathisia, or tardive dyskinesia. As the patient no longer met criteria for continued inpatient psychiatric hospitalization, he was subsequently discharged after appropriate safety planning. Mental status exam: General Appearance: Patient appears to be stated age is alert, pleasant, and cooperative. Patient is in no acute distress and has fair hygiene and grooming Behavior: Patient is calmly seated without any agitated behavior. Speech: Patient's speech is fluent and nonpressured. Mood/Affect: Patient reports their mood is "much better", affect is congruent and euthymic. Suicidality/Homicidality: Patient denies any suicidal or homicidal ideation, intention, and/or plan. Perceptions: Patient denies any auditory or visual hallucinations. Though content/process: There is no evidence of any delusional thought content and thought process is linear and goal-directed. Memory and concentration: AOX3, grossly intact for the purposes of this session. Can spell "WORLD" backwards correctly. Judgment and insight: Improved with guarded prognosis Impression: Adjustment disorder, with mixed disturbance of emotion and conduct Polysubstance use disorder Methamphetamine use disorder Borderline personality disorder Posttraumatic stress disorder Nicotine dependence Plan: -Continue with discharge today as patient has improved and stabilized psychi atrically and is not currently an imminent threat to himself and/or others. Patient will remain at chronically elevated risk for harm to self and/or others due to his impulsivity and polysubstance abuse. -Continue medications: Trileptal 150 mg by mouth twice a day for off label mood stabilization Zoloft 200 mg by mouth daily for depression/anxiety/PTSD Abilify maintena 400 mg IM will be administered on 10/11/2022 - next dose due on 11/08/2022 -Patient was counseled on the need for medication compliance and appropriate follow-up at mental health and also primary care for medical issues. Patient verbalized understanding and agreed. -Social work to arrange for and conduct family meeting to ensure safety upon discharge and answer any questions/concerns. Social work also to arrange for patients follow up appointments with [facility] for psychiatric care along with follow up with primary care provider. -Patient counseled on abstaining from recreational drugs and marijuana and alcohol. Was informed/educated on the adverse effects on their physical and mental health. Patient verbally agreed and understood. Patient was offered substance abuse treatment however declined at this time. -Patient was instructed to return to the hospital or seek immediate medical care if their psychiatric or medical symptoms do worsen or reoccur. -Psychoeducation and supportive therapy provided to patient. Risks and benefits of pharmacological treatment versus the risks and benefits of nontreatment weighed and discussed. Informed consent discussion held. Common side effects of psychotropics discussed such as, but not limited to headache, GI disturbance, sexual dysfunction, movement disorders, sedation, and orthostatic hypotension. Life threatening and blackbox warnings of prescribed medications also discussed. Potential risks of operating a vehicle or heavy machinery discussed with patient at length. Advised on importance of compliance and a reliable and responsible manner. Patient advised to review FDA consumer labeling of all medications prior to taking. Patient verbalized understanding of potential risks, and agrees with current treatment plan. Patient advised to medically contact physician/emergency personnel if any acute changes in condition occur. Vital Signs Temp 98.2 F 10/15/22 06:39 Pulse 63 10/15/22 06:39 Resp 14 10/15/22 06:39 BP 109/60 10/15/22 06:39 Pulse Ox 96 10/13/22 07:06 FiO2 Intake & Output 10/14/22 10/15/22 10/15/22 18:59 06:59 18:59 Weight 80.1 kg Laboratory Results Urine Opiates Screen Not Detected (NotDetected) 10/09/22 22:00 Ur Oxycodone Screen Not Detected (NotDetected) 10/09/22 22:00 Urine Methadone Screen Not Detected (NotDetected) 10/09/22 22:00 Ur Propoxyphene Screen Not Detected (NotDetected) 10/09/22 22:00 Ur Barbiturates Screen Not Detected (NotDetected) 10/09/22 22:00 U Tricyclic Antidepress Not Detected (NotDetected) 10/09/22 22:00 Ur Phencyclidine Scrn Not Detected (NotDetected) 10/09/22 22:00 Ur Amphetamines Screen Detected (NotDetected) H 10/09/22 22:00 U Methamphetamines Scrn Detected (NotDetected) H 10/09/22 22:00 U Benzodiazepines Scrn Not Detected (NotDetected) 10/09/22 22:00 Urine Cocaine Screen Not Detected (NotDetected) 10/09/22 22:00 U Marijuana (THC) Screen Detected (NotDetected) H 10/09/22 22:00 Coronavirus (PCR) Not Detected (Not Detectd) 10/09/22 21:12 Allergies Allergy/AdvReac Type Severity Reaction Status Date / Time bupropion HCl Allergy Rash/Hives Verified 10/09/22 21:40 [From Wellbutrin] nitrofurantoin Allergy Unknown Verified 10/09/22 21:40 [From Macrobid] Sulfa (Sulfonamide Allergy Rash/Hives Verified 10/09/22 21:40 Antibiotics) sulfamethoxazole Allergy Unknown Verified 10/09/22 21:40 [From Bactrim] trimethoprim [From Bactrim] Allergy Unknown Verified 10/09/22 21:40 Patient Condition at Discharge: Stable Plan - Discharge Summary Discharge Rx Participant: No New Discharge Prescriptions: New OXcarbazepine [Trileptal] 150 mg PO BID 15 Days #30 tab Sertraline [Zoloft] 200 mg PO DAILY 15 Days #30 tab Continue Emtricitabine/Tenofovir (Tdf) [Truvada 200 mg-300 mg Tablet] 1 tab PO DAILY Buprenorphine HCl/Naloxone HCl [Buprenorphine-Nalox 4-1Mg Film] 1 film SL DAILY ARIPiprazole [Abilify Maintena] 400 mg IM Q30D 1 Days #1 each Discontinued Sertraline [Zoloft] 150 mg PO DAILY Discharge Medication List Emtricitabine/Tenofovir (Tdf) [Truvada 200 mg-300 mg Tablet] 1 tab PO DAILY 08/01/22 [History] Buprenorphine HCl/Naloxone HCl [Buprenorphine-Nalox 4-1Mg Film] 1 film SL DAILY 10/09/22 [History] ARIPiprazole [Abilify Maintena] 400 mg IM Q30D 1 Days #1 each 10/15/22 [Rx] OXcarbazepine [Trileptal] 150 mg PO BID 15 Days #30 tab 10/15/22 [Rx] Sertraline [Zoloft] 200 mg PO DAILY 15 Days #30 tab 10/15/22 [Rx] Follow up Appointment(s)/Referral(s): [facility] [Outside] - 10/17/22 2:00 pm (10/17/2022 2:00PM - 3:00PM [facility] 10/18/2022 9:00AM - 9:30AM [facility] ) Sandro Orr DO [Primary Care Provider] - 1 Week Patient Instructions/Handouts: Depression (DC), Abuse of Alcohol (DC), Polysubstance Abuse (ED), Anxiety (GEN), Psychotic Disorder (DC), Suicide Prevention (DC) Activity/Diet/Wound Care/Special Instructions: Avoid the use of street drugs and alcohol. Take all medications as prescribed. When you are in need of refills on your medications, please contact your medical provider and/or outpatient psychiatrist/provider to have this done. Please go to your scheduled outpatient appointment for aftercare treatment. If symptoms return or become worse, call the crisis line at and/or go to the nearest emergency room for evaluation. National Suicide Hotline 296. Discharge Disposition: HOME SELF-CARE
== END 2022-10-15 12:18 | disposition home or self-care (01) | DRG 882 ==
LOC: EC 18:56 → 3MHU 22:33
PROVIDERS: ADMIT Psychiatry & Neurology Psychiatry; ATTEND Psychiatry & Neurology Psychiatry
DX: F43.25 Adjustment disorder with mixed disturbance of emotions and conduct (principal); R45.851 Suicidal ideations; F15.20 Other stimulant dependence, uncomplicated; F43.21 Adjustment disorder with depressed mood; I25.10 Atherosclerotic heart disease of native coronary artery without angina pectoris; Z20.822 Contact with and (suspected) exposure to COVID-19; F43.10 Post-traumatic stress disorder, unspecified; F31.9 Bipolar disorder, unspecified; J44.9 Chronic obstructive pulmonary disease, unspecified; F12.20 Cannabis dependence, uncomplicated; F20.9 Schizophrenia, unspecified; G40.909 Epilepsy, unspecified, not intractable, without status epilepticus; F60.3 Borderline personality disorder; F17.210 Nicotine dependence, cigarettes, uncomplicated; Z82.49 Family history of ischemic heart disease and other diseases of the circulatory system; Z88.2 Allergy status to sulfonamides; Z88.8 Allergy status to other drugs, medicaments and biological substances; Z88.6 Allergy status to analgesic agent
CPT/HCPCS: 80306; 82075; 87635; 99285